=== PATIENT | female | born 1955 | race Caucasian/White ===

== ENCOUNTER 2019-03-18 17:29 | Emergency (ER) | payer MEDICARE, MEDICAID ==
[~2019-03-18] VITALS: Ht 157.5 cm; Wt 38.1 kg
[2019-03-18 19:33] LABS: Basophils # (auto) 0.1 uL; Eosinophils # (auto) 0.1 uL; Eosinophils % (auto) 1.3 % (0.0-7.0); Hematocrit 44.8 % (36.0-46.0); Hemoglobin 14.7 g/dL (12.2-16.2); Lymphocytes # (auto) 2.6 uL; Lymphocytes % (auto) 24.1 % (10.0-50.0); Mean Corpuscular Hemoglobin 29.8 pg (28.0-32.0); Mean Corpuscular Hgb Conc. 32.7 g/dL (32.0-36.0); Mean Corpuscular Volume 91.1 fL (80.0-100.0); Monocytes # (auto) 0.9 uL; Monocytes % (auto) 7.8 % (0.0-12.0); Neutrophils # (auto) 7.1 uL; Neutrophils % (auto) 65.8 % (37.0-80.0); Platelet Count (auto) 252 10^3/uL (140-450); Red Blood Cells 4.92 10^6/uL (4.0-5.20); Red Cell Distribution Width 14.1 % (11.8-14.3); White Blood Cell 10.9 10^3/uL (4.4-10.8)
[2019-03-18 19:57] LABS: Anion Gap 3 (5-15); BUN/Creatinine Ratio 20.3; Blood Urea Nitrogen 13 mg/dL (7-18); Calcium 7.9 mg/dL (8.5-10.1); Carbon Dioxide 32 mmol/L (21-32); Chloride 103 mmol/L (98-107); GFR African American 120 mL/min; GFR Non-African American 99 mL/min; Glucose 77 mg/dL (74-106); Potassium 3.9 mmol/L (3.5-5.1); Sodium 138 mmol/L (136-145)
[2019-03-18] MEDS ORDERED: SODIUM CHLORIDE 0.9% 1,000 ML IV ONE (20:00)
[2019-03-18] MEDS ORDERED: methylPREDNISolone SOD SUCC 125 MG/2 ML VL IV ONE (20:00)
[2019-03-18] MEDS ORDERED: IPRATROPIUM BROM 0.5 MG/2.5ML INH SOL NEB ONE (20:00)
[2019-03-18] MEDS ORDERED: ALBUTEROL SULF 2.5 MG/0.5ML(0.5%) NEB SOLN NEB ONE (20:00)
[2019-03-18 20:12] LABS: Alanine Aminotransferase 45 U/L (13-56); Alkaline Phosphatase 100 U/L (45-117); Aspartate Aminotransferase 30 U/L (15-37); Bilirubin, Total 0.3 mg/dL (0.2-1.0); Total Protein 6.2 g/dL (6.4-8.2)
[2019-03-18 20:46] LABS: INR 1.01 (0.9-1.15); Partial Thromboplastin Time 27.5 sec (23.64-32.05)
[2019-03-18] MEDS ORDERED: IOHEXOL 350 MG/ML 100ML IJ ONE (21:18)
[2019-03-18 22:12] LABS: Urine Bacteria NONE SEEN /hpf (None Seen); Urine Blood Negative /uL (Negative); Urine Specific Gravity 1.014 (1.001-1.035); Urine WBC 1 /hpf (0 - 5)
[2019-03-19] MEDS ORDERED: LORazepam 2MG/ML-1ML VIAL IV ONE (01:00)
[2019-03-19] MEDS ORDERED: IOHEXOL 350 MG/ML 100ML IJ ONE (03:04)
[2019-03-19 04:00] VITALS: BP 119/66
== END 2019-03-19 05:05 | disposition home or self-care (01) ==
LOC: ER 17:29
DX: J44.9 Chronic obstructive pulmonary disease, unspecified (principal); F17.210 Nicotine dependence, cigarettes, uncomplicated
CPT/HCPCS: 36415; 71045; 71275; 80053; 81001; 83880; 84484; 85025; 85379; 85610; 85730; 93005; 94640; 96374; 96375; 99284; J2060; J2930; J7030; J7611; J7644; Q9967

== ENCOUNTER 2019-06-29 16:03 | Inpatient (IN) | payer MEDICARE, MEDICAID ==
[~2019-06-29] VITALS: Ht 157.5 cm; Wt 41.4 kg
[2019-06-29] MEDS ORDERED: IPRATROPIUM BROM 0.5 MG/2.5ML INH SOL NEB ONE (17:00)
[2019-06-29] MEDS ORDERED: ALBUTEROL SULF 2.5 MG/0.5ML(0.5%) NEB SOLN NEB ONE (17:00)
[2019-06-29] MEDS ORDERED: methylPREDNISolone SOD SUCC 125 MG/2 ML VL IV ONE (17:00)
[2019-06-29 17:20] LABS: Basophils # (auto) 0.1 uL; Basophils % (auto) 0.4 % (0.0-2.0); Eosinophils # (auto) 0 uL; Hematocrit 45.5 % (36.0-46.0); Hemoglobin 14.8 g/dL (12.2-16.2); Lymphocytes # (auto) 1.2 uL; Lymphocytes % (auto) 8.7 % (10.0-50.0); Mean Corpuscular Hemoglobin 29.3 pg (28.0-32.0); Mean Corpuscular Hgb Conc. 32.6 g/dL (32.0-36.0); Monocytes # (auto) 1.4 uL; Monocytes % (auto) 10.4 % (0.0-12.0); Neutrophils # (auto) 11.1 uL; Neutrophils % (auto) 80.5 % (37.0-80.0); Platelet Count (auto) 306 10^3/uL (140-450); Red Blood Cells 5.06 10^6/uL (4.0-5.20); Red Cell Distribution Width 15.2 % (11.8-14.3); White Blood Cell 13.8 10^3/uL (4.4-10.8)
[2019-06-29 17:28] LABS: Albumin 3.2 g/dL (3.4-5.0); Anion Gap 5 (5-15); Blood Urea Nitrogen 17 mg/dL (7-18); Calcium 8.7 mg/dL (8.5-10.1); Carbon Dioxide 28 mmol/L (21-32); Chloride 98 mmol/L (98-107); Glucose 111 mg/dL (74-106); Potassium 4.1 mmol/L (3.5-5.1); Sodium 131 mmol/L (136-145)
[2019-06-29 17:30] LABS: Alanine Aminotransferase 29 U/L (13-56); BUN/Creatinine Ratio 21.5; GFR African American 94 mL/min; GFR Non-African American 78 mL/min
[2019-06-29] MEDS ORDERED: LORazepam 2MG/ML-1ML VIAL IV ONE (17:30)
[2019-06-29 17:33] LABS: Alkaline Phosphatase 125 U/L (45-117); Aspartate Aminotransferase 25 U/L (15-37); Bilirubin, Total 0.6 mg/dL (0.2-1.0); Total Protein 7.7 g/dL (6.4-8.2)
[2019-06-29] MEDS ORDERED: MIDAZOLAM DRIP 50 mg/50mL 50 ML IV ONE (18:04)
[2019-06-29] MEDS ORDERED: ETOMIDATE (2MG/ML) 20ML VIAL IV ONE ×2 (18:04→18:15)
[2019-06-29] MEDS ORDERED: SUCCINYLCHOLINE CHLORIDE 20 MG/ML 10ML VIAL IV ONE ×2 (18:05→18:15)
[2019-06-29 18:32] VITALS: BP_SYST 128; BP_SYST 93; BP_DIAS 39; BP_DIAS 71
[2019-06-29] MEDS ORDERED: fentaNYL Drip 2500mCg/250mlNS 250 ML IV ONE (18:48)
[2019-06-29] MEDS: fentaNYL Drip 2500mCg/250mlNS 250 ML IV SCH (19:12)
[2019-06-29] MEDS: MIDAZOLAM DRIP 50 mg/50mL 50 ML IV SCH (19:13)
[2019-06-29] MEDS ORDERED: SODIUM CHLORIDE 0.9% 1,000 ML IV ONE (19:30)
[2019-06-29 20:09] LABS: Urine Amorphous Crystal FEW /hpf (None Seen); Urine Bacteria FEW /hpf (None Seen); Urine Blood Negative /uL (Negative); Urine Hyaline Cast FEW /lpf (0 - 2); Urine Specific Gravity 1.028 (1.001-1.035); Urine WBC 2 /hpf (0 - 5)
[2019-06-29] MEDS: PROPOFOL 100 ML IV SCH (20:30)
[2019-06-29] MEDS: D5W/SOD CHLO 0.9% 1,000 ML IV SCH (20:30)
[2019-06-29 20:40] VITALS: BP 97/52
[2019-06-29 21:43] VITALS: BP 91/62
[2019-06-29] MEDS ORDERED: ALBUTEROL SULF 2.5 MG/0.5ML(0.5%) NEB SOLN NEB SCH (22:00)
[2019-06-29] MEDS ORDERED: IPRATROPIUM BROM 0.5 MG/2.5ML INH SOL NEB SCH (22:00)
[2019-06-29] MEDS ORDERED: ONDANSETRON HCL 4 MG/2 ML VIAL IV PRN (22:00)
[2019-06-29] MEDS ORDERED: cefTRIAXone 1GM/50ML D5W 50 ML IV ONE (22:00)
[2019-06-29] MEDS ORDERED: NITROGLYCERIN 0.4 MG SL TAB SL PRN (22:15)
[2019-06-29] MEDS ORDERED: MORPHINE SULF INJ 2 MG/ML SYRINGE 1ML IV PRN (22:15)
[2019-06-29] MEDS: methylPREDNISolone SOD SUCC 125 MG/2 ML VL IV SCH (22:30)
--- NOTE | 2019-06-29 23:25 | NUR ---
ARRIVAL NOTE PT BROUGHT TO ICU VIA GURNEY FROM ER. PT PLACED IN ROOM 111 AND PLACED ON ICU MONITORING. PT VITALS ON ADMISSION, 98.1 ORAL TEMP, HR 79, RR 18, BP 105/55. PT WEIGHED. NON BLANCHING REDNESS NOTED ON LATERAL PORTION OF LEFT HEEL AND LEFT EAR. SACRAL OPTIFOAM APPLIED. PT ARRIVED WITH 18 G LEFT FA AND 20 RIGHT AC. IV SITES BENIGN. ELLINGTON CATHETER DRAINING TO GRAVITY. OGT AT 55 CM ATTACHED TO LIS. PT VENTED AND SEDATED. BED LOCKED AND IN LOWEST POSITION, SAFETY PRECAUTIONS IN PLACE. WILL MONITOR PT CAREFULLY.
[2019-06-29 23:42] VITALS: BP 105/55
[2019-06-29] MEDS: IPRATROPIUM BROM 0.5 MG/2.5ML INH SOL NEB SCH (23:42)
[2019-06-29] MEDS: ALBUTEROL SULF 2.5 MG/0.5ML(0.5%) NEB SOLN NEB SCH (23:42)
[2019-06-29 23:45] VITALS: BP 104/60
[2019-06-29 23:58] VITALS: BP 105/55
[2019-06-30] VITALS (102 sets, daily range): BP systolic 74–131; BP diastolic 38–66
[2019-06-30] MEDS ORDERED: BUSP15TA60 (02:14)
[2019-06-30] MEDS ORDERED: IPRAAER6 (02:14)
[2019-06-30] MEDS ORDERED: ALBUAER3 (02:14)
[2019-06-30] MEDS ORDERED: ALBU108A5 (02:14)
[2019-06-30] MEDS ORDERED: PSEU1SYP6 (02:14)
[2019-06-30] MEDS ORDERED: FLUT1AER3 (02:14)
[2019-06-30 04:00] LABS: Basophils # (auto) 0 uL; Basophils % (auto) 0.2 % (0.0-2.0); Eosinophils # (auto) 0 uL; Hematocrit 39.2 % (36.0-46.0); Hemoglobin 13.1 g/dL (12.2-16.2); Lymphocytes # (auto) 0.5 uL; Mean Corpuscular Hemoglobin 29.8 pg (28.0-32.0); Mean Corpuscular Hgb Conc. 33.3 g/dL (32.0-36.0); Mean Corpuscular Volume 89.6 fL (80.0-100.0); Monocytes # (auto) 0.3 uL; Monocytes % (auto) 3.4 % (0.0-12.0); Neutrophils # (auto) 8.4 uL; Neutrophils % (auto) 91.4 % (37.0-80.0); Nucleated Red Blood Cells % 0.1 %; Platelet Count (auto) 248 10^3/uL (140-450); Red Blood Cells 4.38 10^6/uL (4.0-5.20); Red Cell Distribution Width 15.1 % (11.8-14.3); White Blood Cell 9.2 10^3/uL (4.4-10.8)
[2019-06-30 04:17] LABS: Calcium 8.4 mg/dL (8.5-10.1); Potassium 4.2 mmol/L (3.5-5.1)
[2019-06-30 04:19] LABS: BUN/Creatinine Ratio 33.9
[2019-06-30] MEDS: ALBUTEROL SULF 2.5 MG/0.5ML(0.5%) NEB SOLN NEB SCH ×3 (06:36→18:36)
[2019-06-30] MEDS: IPRATROPIUM BROM 0.5 MG/2.5ML INH SOL NEB SCH ×3 (06:36→18:36)
--- NOTE | 2019-06-30 08:00 | NUR ---
OPEN RECEIVED REPORT FROM NIGHT RN. ASSUMED CARE OF ICU PATIENT, FULL CODE STATUS. PATIENT SEDATED ON VENT. #7.5 ETT, 23 CM AT LIP. AC 18,500, 35% FIO2, PEEP +5. OGT CLAMPED AT THIS TIME, PLACEMENT VERIFIED. ELLINGTON TO GRAVITY. SEE TELEPHONE QUOTATION CLERK AND IV FLOW SHEET FOR FURTHER PATIENT INFORMATION. WILL CONTINUE TO TURN PATIENT Q2HRS AND PRN. OFF LOADING PRESSURE AREAS WITH PILLOWS. WILL CONTINUE TO MONITOR.
[2019-06-30] MEDS ORDERED: NOREPINEPHRINE 8 MG/250ML KIT 250 ML IV ONE (08:57)
[2019-06-30] MEDS ORDERED: SODIUM CHLORIDE 0.9% 1,000 ML IV ONE (09:00)
[2019-06-30] MEDS: NOREPINEPHRINE 8 MG/250ML KIT 250 ML IV SCH (09:30)
--- NOTE | 2019-06-30 09:30 | NUR ---
FAMILY PATIENT'S SON AT BEDSIDE. UPDATED HIM ON PT'S CURRENT STATUS, LABS AND POC FOR TODAY. SON REMAINS AT BEDSIDE. CONTINUE CARE.
[2019-06-30] MEDS: D5W/SOD CHLO 0.9% 1,000 ML IV SCH (10:30)
[2019-06-30] MEDS: PANTOPRAZOLE 40 MG/10 ML VIAL INJ IV SCH (11:04)
[2019-06-30] MEDS: methylPREDNISolone SOD SUCC 125 MG/2 ML VL IV SCH ×2 (11:04→22:22)
[2019-06-30] MEDS: cefTRIAXone 1GM/50ML D5W 50 ML IV SCH (11:04)
[2019-06-30] MEDS: ENOXAPARIN SOD 40 MG/0.4 ML SYRINGE SC SCH (11:05)
--- NOTE | 2019-06-30 11:48 | NUR ---
WOUND CARE NOTE: Wound care into see patient per wound care request regarding " pt admitted with non-blanching redness to several areas including heels and left ear lobe" that are noted present upon admission. Patient is 64 years old female with admitting diagnosis of Acute Hypercapnic, hypoxic Resp Failure. Patient with history of asthma and COPD. Patient is resting in ICU bed in Rm. 111. Patient is intubated, sedated and mechanically ventilated. Patient appears to be in no pain using Celis Servin Faces Pain Scale. Her Chay score is 13. No open wound noted other than three small mole to L ear pinna from proximal to distal. Patient's skin is intact, pink and blanchable. No pressure injury noted. Patient's heels are offloaded on pillows and no skin issue noted. Patient tolerated well. RECOMMENDATION: Nursing to continue with BID/PRN cleaning and application Barrier cream to sacral, as preventative buttocks per MD order, frequent turning and repositioning schedule as condition permits, redistribute pressure points with pillows,elevate heels on pillows, continue monitoring by wound care while patient is mechanically ventilated. Addendum: 06/30/19 at 1355 by Daina Reyes RN Amended: Links added. Addendum: 06/30/19 at 1356 by Daina Reyes RN RECOMMENDATION: Consider air mattress if patient transfer to floor. Patient weighs 38.6kg
[2019-06-30] MEDS: fentaNYL Drip 2500mCg/250mlNS 250 ML IV SCH (12:25)
--- NOTE | 2019-06-30 13:45 | NUR ---
DR. LAGUNAS AT BEDSIDE: ORDERS MD UPDATED ON PT'S STATUS, LABS AND POC FOR TODAY. ORDERS GIVEN AND TO BE CARRIED OUT. WILL CONTINUE TO MONITOR. MD TALKING WITH PATIENT'S SON AT BEDSIDE AT THIS TIME.
[2019-06-30] MEDS ORDERED: Glucerna 1.2 Cal 1Liter BOTTLE GT SCH (14:00)
[2019-06-30] MEDS ORDERED: DEXTROSE (50%) 50ML SYRG IV PRN (14:00)
--- NOTE | 2019-06-30 15:20 | NUR ---
DR. MERAZ AT BEDSIDE: ORDERS MD UPDATED ON PT'S STATUS, LABS AND FOR TODAY. PENDING CPAP TRIAL IN AM FOR TOMORROW. MD WANTING TO HOLD STARTING TUBE FEEDINGS DUE TO CPAP IN AM. WILL KEEP PATIENT NPO STATUS AT THIS TIME. CONTINUE CARE.
[2019-06-30] MEDS ORDERED: AZITHROMYCIN 500MG/ 250ML 250 ML IV ONE (15:30)
[2019-06-30] MEDS: PROPOFOL 100 ML IV SCH (17:16)
[2019-06-30] MEDS: ACETYLCYSTEINE 10 %(100MG/ML) SOL 4ML NEB SCH (18:36)
[2019-06-30] MEDS: ACCU-CHEK COMFORT CURVE STRIP VI SCH (18:47)
[2019-06-30] MEDS: MIDAZOLAM DRIP 50 mg/50mL 50 ML IV SCH (18:48)
[2019-06-30] MEDS: InsuLIN REG 1unit/0.01ml Soln (100units/ml) SC SCH (18:54)
--- NOTE | 2019-06-30 19:00 | NUR ---
opening note assumed care of patient at this time. Report received from day shift RN. POC reviewed. Head to toe assessment complete, see intervention spreadsheet for complete details. Received pt intubated/sedated. VSS. iv sites benign. Thornton catheter draining to gravity. Bony prominences off loaded. Suction and BVM at bedside. Bed locked and in lowest position, safety precautions in place. Will monitor pt carefully.
[2019-07-01] VITALS (103 sets, daily range): BP systolic 87–143; BP diastolic 43–77
[2019-07-01] MEDS: IPRATROPIUM BROM 0.5 MG/2.5ML INH SOL NEB SCH ×4 (00:16→18:25)
[2019-07-01] MEDS: ALBUTEROL SULF 2.5 MG/0.5ML(0.5%) NEB SOLN NEB SCH ×4 (00:16→18:25)
[2019-07-01] MEDS: ACETYLCYSTEINE 10 %(100MG/ML) SOL 4ML NEB SCH ×4 (00:17→18:25)
[2019-07-01] MEDS: fentaNYL Drip 2500mCg/250mlNS 250 ML IV SCH (00:36)
[2019-07-01] MEDS ORDERED: FUROSEMIDE INJECTION 10 ML ONE (00:41)
[2019-07-01] MEDS: D5W/SOD CHLO 0.9% 1,000 ML IV SCH (03:08)
[2019-07-01 04:16] LABS: Basophils # (auto) 0 uL; Basophils % (auto) 0.1 % (0.0-2.0); Eosinophils # (auto) 0 uL; Hematocrit 38.9 % (36.0-46.0); Hemoglobin 12.5 g/dL (12.2-16.2); Lymphocytes # (auto) 0.5 uL; Lymphocytes % (auto) 3.3 % (10.0-50.0); Mean Corpuscular Hemoglobin 28.9 pg (28.0-32.0); Mean Corpuscular Volume 90.2 fL (80.0-100.0); Monocytes # (auto) 0.8 uL; Neutrophils # (auto) 14.9 uL; Neutrophils % (auto) 91.6 % (37.0-80.0); Platelet Count (auto) 334 10^3/uL (140-450); Red Blood Cells 4.31 10^6/uL (4.0-5.20); Red Cell Distribution Width 15.4 % (11.8-14.3); White Blood Cell 16.3 10^3/uL (4.4-10.8)
[2019-07-01 04:49] LABS: Potassium 4.5 mmol/L (3.5-5.1)
--- NOTE | 2019-07-01 04:49 | NUR ---
Bed bath/linen change pt given bed bath with linen change. Pt did not tolerate well. Pt woke up, pulling at tubes, clamping on et tube. Pt does not follow commands. Pt relaxed and fell back asleep after stimulation reduced. No skin integrity changes noted. Suction tubing and canister changed at this time. Bed locked and in lowest position, safety precautions maintained. Will continue with care.
[2019-07-01 04:55] LABS: BUN/Creatinine Ratio 22.7; Calcium 8.3 mg/dL (8.5-10.1); Magnesium 2.1 mg/dL (1.6-2.6)
[2019-07-01] MEDS: InsuLIN REG 1unit/0.01ml Soln (100units/ml) SC SCH ×4 (06:00→17:57)
[2019-07-01] MEDS: ACCU-CHEK COMFORT CURVE STRIP VI SCH ×4 (06:13→17:57)
[2019-07-01] MEDS: cefTRIAXone 1GM/50ML D5W 50 ML IV SCH (08:55)
--- NOTE | 2019-07-01 09:07 | NUR ---
Resumed care at 0715, orders reviewed and ongoing assessments being done. Being treated for multiple problems and remains intubated. Is wakeful but can not following any simple direction and can not keep eyes open. Sedation vacation initiated, weaned off Versed at 0815 and decreased FentaNLY. Per prior shift awakens very confused and reaching for medical tubes. applied soft bilateral mittens to prevent removal of medical tube. Possible CPAP trial if appropriate. Remains on Levophed gtt for hemodynamic stability, titrating as appropriate. Received call from son Mark at 0745, will be in later today.
[2019-07-01] MEDS: NOREPINEPHRINE 8 MG/250ML KIT 250 ML IV SCH (09:30)
--- NOTE | 2019-07-01 10:00 | NUR ---
ERROR ON VENT CHARTING AT 1000, PT NOT ON CPAP.
--- NOTE | 2019-07-01 10:09 | NUR ---
CPAP INITIATED AT THIS TIME PS 7, PEEP5, 30% FIO2. PT AWAKE AND FOLLOWS COMMANDS. SPO2 93%. APPROPRIATE CPAP ALARMS SET ON VENTILATOR. Addendum: 07/01/19 at 1135 by Linh Champion RT ERROR. WRONG PT
[2019-07-01] MEDS: ENOXAPARIN SOD 40 MG/0.4 ML SYRINGE SC SCH (10:18)
[2019-07-01] MEDS: methylPREDNISolone SOD SUCC 125 MG/2 ML VL IV SCH ×2 (10:18→22:07)
[2019-07-01] MEDS: PANTOPRAZOLE 40 MG/10 ML VIAL INJ IV SCH (10:18)
[2019-07-01] MEDS: AZITHROMYCIN 500MG/ 250ML 250 ML IV SCH (10:18)
--- NOTE | 2019-07-01 10:55 | NUR ---
During repositioning sat straight up in bed with eyes wide open and biting down on EET. Started shaking upper body. Noted HR up to 140 and pulse oximetry <90%. No sustained eye contact and not following any direction. Reoriented to staff, place and situation. Emotional support given and finally calmed. HR now 79 with pulse oximetry 95%. Took a few minutes for her to settle down.
--- NOTE | 2019-07-01 11:15 | NUR ---
Contacted Dr. Hilario, form maker. Discussed condition and plan of care. Okay to or a Precedex gtt for CPAP trial.
[2019-07-01] MEDS: DexMEDEtomidine 400 MCG in D5W 5% 96 ML IV SCH (11:30)
--- NOTE | 2019-07-01 12:12 | NUR ---
PT DOES NOT TOLERATE CPT WELL. WHEN CPT STARTED ON BED, PT SITS UP IN BED, AGITATED, SHAKING, DISTRESSED. CPT TERMINATED.
--- NOTE | 2019-07-01 12:51 | NUR ---
Son Mark was in to visit and updated on plan of care, all questions answered. Took all personal belongings home. Once again while repositioning, sat up forcefully with eyes wide open and shaking body from side to side. Heart rate increases up to 140. Have to stay at bedside and give emotional support and reorient to place and situation. Precedex infusing started at 1230 per protocol.
[2019-07-01] MEDS: PROPOFOL 100 ML IV SCH (13:35)
--- NOTE | 2019-07-01 16:06 | NUR ---
Dr. Hilario in at 1315 to round. No CPAP trial today. At bedside with doctor and when stimulated she sits up, moves body side to side and starts gaging on EET. Unable to stay calm and follow simple direction for CPAP trial. Per Dr. Hilario, start Diprivan gtt for sedation. Diprivan infusing and is calm, sleeping. Dr. Soto rounded at 1500. Continue current plan of care. He contacted her son Mark via phone to update him.
--- NOTE | 2019-07-01 18:32 | NUR ---
No remarkable changes. Remains intubated and sedated with Diprivan and Precedex. Upon stimulation she stills sits up and opens eyes wide open but not as forceful prior to sedation. Levophed gtt continues to infuse, to right AC peripheral line #20 guage. No signs of infiltration.
[2019-07-01] MEDS: MIDAZOLAM DRIP 50 mg/50mL 50 ML IV SCH ×2 (19:01→22:39)
--- NOTE | 2019-07-01 20:11 | NUR ---
Residuals 60 mls aspirated, tf decreased to 20 mls/hr. Will continue to assess.
--- NOTE | 2019-07-01 21:05 | NUR ---
Pt does not tolerate turns, Pt wakes up and is combative. Pt does not follow commands, appears to be fearful. Pt reassured that everything is ok, pt is in hospital being taken care of. Pt does not respond appropriately, attempting to hit, kick and mouth words. Pt biting tubes and pulling at lines etc. Pt calmed down after several minutes. Once patient not being disturbed, pt asleep. VSS.
[2019-07-01] MEDS: PIPERACILLIN-TAZOB 3.375GM 100 ML IV SCH (22:07)
--- NOTE | 2019-07-01 22:31 | NUR ---
agitation/anxiety Pt sat upright in bed with no provocation. PT pulling at et tube and fighting with RN's. Pt does not respond to reassurance. Versed restarted at this time for pt comfort.
--- NOTE | 2019-07-01 22:35 | NUR ---
tf turned off at this time for pt safety d/t agitation. OGT flushed and clamped.
--- NOTE | 2019-07-01 23:31 | NUR ---
family update Son Mark called. All questions addressed, poc updated. Son verbalized understanding.
[2019-07-02] VITALS (76 sets, daily range): BP systolic 85–137; BP diastolic 45–88
[2019-07-02] MEDS: ACETYLCYSTEINE 10 %(100MG/ML) SOL 4ML NEB SCH ×4 (00:11→18:41)
[2019-07-02] MEDS: ALBUTEROL SULF 2.5 MG/0.5ML(0.5%) NEB SOLN NEB SCH ×3 (00:11→11:30)
[2019-07-02] MEDS: IPRATROPIUM BROM 0.5 MG/2.5ML INH SOL NEB SCH ×4 (00:11→18:40)
[2019-07-02] MEDS: ACCU-CHEK COMFORT CURVE STRIP VI SCH ×4 (00:21→18:16)
[2019-07-02] MEDS: InsuLIN REG 1unit/0.01ml Soln (100units/ml) SC SCH ×4 (00:21→18:00)
[2019-07-02 03:43] LABS: Basophils # (auto) 0 uL; Basophils % (auto) 0.1 % (0.0-2.0); Eosinophils # (auto) 0 uL; Hematocrit 41.5 % (36.0-46.0); Hemoglobin 13.7 g/dL (12.2-16.2); Lymphocytes # (auto) 0.7 uL; Lymphocytes % (auto) 5.6 % (10.0-50.0); Mean Corpuscular Hemoglobin 29.7 pg (28.0-32.0); Mean Corpuscular Hgb Conc. 33.1 g/dL (32.0-36.0); Mean Corpuscular Volume 89.6 fL (80.0-100.0); Monocytes # (auto) 0.7 uL; Monocytes % (auto) 5.3 % (0.0-12.0); Neutrophils # (auto) 11.7 uL; Platelet Count (auto) 282 10^3/uL (140-450); Red Blood Cells 4.63 10^6/uL (4.0-5.20); Red Cell Distribution Width 15.6 % (11.8-14.3); White Blood Cell 13.2 10^3/uL (4.4-10.8)
[2019-07-02 04:04] LABS: Calcium 8.8 mg/dL (8.5-10.1); Potassium 4.3 mmol/L (3.5-5.1)
[2019-07-02 04:08] LABS: BUN/Creatinine Ratio 32.7
[2019-07-02] MEDS: PROPOFOL 100 ML IV SCH (04:27)
--- NOTE | 2019-07-02 04:50 | NUR ---
BRADYCARDIA/WARMING MEASURES PT HAVING CONTINUOUS EPISODES OF LOW HEART RATE. SEDATION DECREASED SIGNIFICANTLY WITH NO CHANGE. UNABLE TO ASSESS ORAL OR AXILLARY 0400 TEMP. RECTAL TEMP PLACED. REGISTERING AT 94.6, HARDENED STOOL NOTED ON PLACEMENT, UNABLE TO ASSESS IF TEMP IS ACCURATE HOWEVER DUE TO BRADYCARDIA WARMING MEASURES INITIATED. WILL CONTINUE TO ASSESS PT.
[2019-07-02] MEDS: PIPERACILLIN-TAZOB 3.375GM 100 ML IV SCH ×3 (05:56→22:19)
[2019-07-02] MEDS: DexMEDEtomidine 400 MCG in D5W 5% 96 ML IV SCH (06:37)
[2019-07-02] MEDS: NOREPINEPHRINE 8 MG/250ML KIT 250 ML IV SCH (07:50)
[2019-07-02] MEDS: methylPREDNISolone SOD SUCC 125 MG/2 ML VL IV SCH ×2 (10:40→22:19)
[2019-07-02] MEDS: PANTOPRAZOLE 40 MG/10 ML VIAL INJ IV SCH (10:40)
[2019-07-02] MEDS: AZITHROMYCIN 500MG/ 250ML 250 ML IV SCH (10:40)
[2019-07-02] MEDS: ENOXAPARIN SOD 40 MG/0.4 ML SYRINGE SC SCH (10:40)
[2019-07-02] MEDS ORDERED: LORazepam 2MG/ML-1ML VIAL ONE (11:27)
--- NOTE | 2019-07-02 11:28 | NUR ---
Bilingual Office Assistant at bedside Dr. Hilario at bedside. Patient remains on precedex gtt. When lightly simulated patient wakes up, does not track, does not follow command. Became restless despite alternative measures. 1x dose of ativan given as ordered due to anxiety pending cpap. R.t at bedside aware. Will continue to attempt to wake up with less anxiety as hr increased as high as 130's.
[2019-07-02] MEDS ORDERED: LORazepam 2MG/ML-1ML VIAL IV PRN (11:45)
--- NOTE | 2019-07-02 13:30 | NUR ---
MD ROUNDS DR. HOGUE UPDATED ON PATIENTS STATUS. SEE MD ORDERS.
--- NOTE | 2019-07-02 13:40 | NUR ---
PLACED PT RONALD CPAP WEANING TRIAL, PER DR LAGUNAS. PT IS AWAKE, ALERT AND ORIENTED. PT ABLE TO UNDERSTAND AND FOLLOW INDICATIONS.
--- NOTE | 2019-07-02 14:00 | NUR ---
ANXIETY PATIENTS HAS MOMENTS OF ANXIETY, BECOMES TACHYCARDIAC 130'S RR 22-30. PATIENT OPENS EYES TO VOICE, PRECEDEX REMAINS IN PLACE. FAMILY AT BEDSIDE NOTED TO COMFORT PATIENT. MEAL RELIEF NURSE TO CONTINUE TO MONITOR.
[2019-07-02] MEDS ORDERED: FUROSEMIDE 20 MG/2 ML VIAL IV ONE (14:30)
--- NOTE | 2019-07-02 14:30 | NUR ---
Patient status Per covering nurse, [place] [employer] Operator aware of patients anxiety during cpap trial and tackycardia, cpap held for approx 15min. Patient currently on cpap pending abg.
--- NOTE | 2019-07-02 14:45 | NUR ---
Family Patient continues to be anxious. Dr. Hilario at bedside updated Son at bedside of possible reintubation if patient does not tolerate. Son verbalized understanding and agrees to extubation.
--- NOTE | 2019-07-02 15:00 | NUR ---
Patient extubated by RT Extubation order received by Dr. LAGUNAS, RT at bedside. Patient extubated with no problems, patient tolerated well. Patient placed on % cool mist mask. Sats prior to extubation %, following extubation %. Continue to monitor.
--- NOTE | 2019-07-02 17:16 | NUR ---
STATUS PATIENT IN HIGH FOWLERS. ON COOL MIST MASK, PATIENT CALM, ST 111, POX 94%, RR 23-27, 102/53. WILL CONTINUE TO MONITOR.
--- NOTE | 2019-07-02 18:00 | NUR ---
SKIN OPTI FOAMS PLACED TO BILATERAL ELBOWS PATIENT CONTINUOUSLY PUSHES SELF OFF BED TO REPOSITION SELF. HEELS ALSO OFF LOADED AND PINK/ BLANCHABLE BUT PATIENT CONTINUES TO MOVE PILLOW THAT OFF LOADS HEELS.
[2019-07-02] MEDS: fentaNYL Drip 2500mCg/250mlNS 250 ML IV SCH (18:16)
[2019-07-02] MEDS: LEVALBUTEROL HCL 1.25 MG/3 ML NEB NEB SCH (18:40)
--- NOTE | 2019-07-02 18:53 | NUR ---
Family updated on pt status Family of [place]GU[place] updated on patient's status and condition. All questions and concerns addressed. Son, Mark verbalized understanding.
--- NOTE | 2019-07-02 19:20 | NUR ---
Respiratory note: PT HAVING DIFFICULTY CLEARING SECRETIONS DESPITE GOOD COUGH EFFORT. PT DEEP SUCTIONED FOR LARGE, THICK, TENACIOUS, WHITE/PALE YELLOW SECRETIONS. RN AT BEDSIDE. WILL CONTINUE TO MONITOR.
[2019-07-02] MEDS: LORazepam 2MG/ML-1ML VIAL IV PRN (20:01)
[2019-07-03] VITALS (29 sets, daily range): BP systolic 106–155; BP diastolic 50–95
[2019-07-03] MEDS: IPRATROPIUM BROM 0.5 MG/2.5ML INH SOL NEB SCH ×4 (00:04→18:41)
[2019-07-03] MEDS: LEVALBUTEROL HCL 1.25 MG/3 ML NEB NEB SCH ×4 (00:04→18:40)
[2019-07-03] MEDS: ACETYLCYSTEINE 10 %(100MG/ML) SOL 4ML NEB SCH ×4 (00:04→18:41)
[2019-07-03] MEDS: ACCU-CHEK COMFORT CURVE STRIP VI SCH ×3 (00:21→12:00)
[2019-07-03] MEDS: LORazepam 2MG/ML-1ML VIAL IV PRN ×4 (02:04→22:10)
--- NOTE | 2019-07-03 02:50 | NUR ---
Respiratory note: PT SITTING UP IN BED, HAVING DIFFICULTY CLEARING SECRETIONS WITH GOOD COUGH EFFORT. SPO2 NOTED AT 90%-89%, PT PLACED ON 8L SIMPLE MASK. PT SUCTIONED FOR MODERATE THICK TENACIOUS WHITE/YELLOW SECRETIONS. RN AT BEDSIDE. PT PLACED BACK ON 4L NC, SPO2 NOTED AT 97%, PT APPEARS COMFORTABLE AT THIS TIME. WILL CONTINUE TO MONITOR AND TITRATE FIO2 TOLERATED.
[2019-07-03] MEDS ORDERED: guaiFENesin-CODEINE Liq 5 ML UD ONE (03:22)
--- NOTE | 2019-07-03 04:00 | NUR ---
COUGHING PATIENT HAD INTERMITTENT SEVERE HYPERACTIVE COUGHING DURING NIGHT. PATIENT WAS GIVEN ATIVAN 1 MG IV PRN FOR ANXIETY. COUGH SYRUP WAS GIVEN PRN. WILL MONITOR CLOSELY.
--- NOTE | 2019-07-03 05:00 | NUR ---
ASSESSMENT PATIENT IS SLEEPING, NO MORE COUGHING, VITAL SIGNS ARE STABLE.
[2019-07-03] MEDS: PIPERACILLIN-TAZOB 3.375GM 100 ML IV SCH (06:13)
[2019-07-03] MEDS: InsuLIN REG 1unit/0.01ml Soln (100units/ml) SC SCH ×3 (07:08→12:00)
[2019-07-03] MEDS: DexMEDEtomidine 400 MCG in D5W 5% 96 ML IV SCH (08:01)
[2019-07-03] MEDS: NOREPINEPHRINE 8 MG/250ML KIT 250 ML IV SCH (08:01)
--- NOTE | 2019-07-03 08:20 | NUR ---
ANXIETY PATIENT HAS INCREASE RR, RESTLESS, PRN ATIVAN GIVEN FOR COMFORT. WILL CONTINUE TO MONITOR.
--- NOTE | 2019-07-03 08:30 | NUR ---
Family updated on pt status Family of [place]GU[place] updated on patient's status and condition. All questions and concerns addressed. Son, Mark verbalized understanding.
[2019-07-03] MEDS: methylPREDNISolone SOD SUCC 125 MG/2 ML VL IV SCH ×2 (09:00→21:26)
[2019-07-03] MEDS: AZITHROMYCIN 500MG/ 250ML 250 ML IV SCH (09:00)
[2019-07-03] MEDS: ENOXAPARIN SOD 40 MG/0.4 ML SYRINGE SC SCH (09:00)
[2019-07-03] MEDS: PANTOPRAZOLE 40 MG/10 ML VIAL INJ IV SCH (09:00)
--- NOTE | 2019-07-03 09:35 | NUR ---
Resting Patient tolerating Ativan well. Patient currently sleeping, Hr 101, pox 97% on 2l/min NC, RR 26-28. Bp stable. Will continue to monitor.
[2019-07-03] MEDS: guaiFENesin-CODEINE Liq 5 ML UD PO PRN ×3 (09:58→23:33)
--- NOTE | 2019-07-03 10:22 | NUR ---
COUGHING PATIENT HAVING DIFFICULTY CLEARING SECRETIONS. FREQUENT, HACKING, NONPRODUCTIVE COUGH. PRN FOR COUGH ADMINISTERED. SEE EMAR. PATIENT REMAINS IN HIGH FOWLERS WITH ASPIRATION PRECAUTIONS. BED ALARM ON WITH CALL LIGHT AT REACH.
[2019-07-03] MEDS ORDERED: FUROSEMIDE 20 MG/2 ML VIAL ONE (13:56)
[2019-07-03] MEDS ORDERED: CARVEDILOL 3.125 MG TAB PO ONE (14:00)
[2019-07-03] MEDS ORDERED: FUROSEMIDE 20 MG/2 ML VIAL IV ONE (14:00)
[2019-07-03] MEDS ORDERED: BUDESONIDE (INHALATION) 0.5 MG/2 ML NEB NEB ONE (14:00)
[2019-07-03] MEDS ORDERED: POTASSIUM EFFERVESENT TAB 25 MEQ PO ONE (14:00)
--- NOTE | 2019-07-03 16:34 | NUR ---
Assessment Pt is a 66 yr old female. Pt was unresponsive during assessment due to recent extubation so TONE called pt's Son Mark, who was her contact on file, at [phone]. Mark stated that patient's baseline is normally Alert and oriented. Pt rents a room from family friends. Pt uses no DME in the home, but uses an inhaler to assist with breathing needs. Pt was ambulatory and independent with ADL's prior to admit. Pt's Primary is Dr. Sosa, has no AD, and receives [employer] income. Pt was not on HH, Hospice or dialysis prior to admit. Pt's son asked questions regarding in home care, if needed for the patient upon d/c. TONE educated pt on [facility] and HH and gave phone # for [facility] intake referral. Pt's son will transport home upon d/c. Pt's needs will be further assessed prior to d/c Addendum: 07/03/19 at 1647 by GILDA OROZCO Amended: Links added.
--- NOTE | 2019-07-03 18:35 | NUR ---
COUGH PATIENT HAVING NON PRODUCTIVE MOIST COUGH. PT HR NOTED HIGH 120'S AND POX DECREASED TO 87%. PRN COUGH MEDICINE GIVE WITH ASPIRATION PRECAUTIONS IN PLACE. R.T AT BEDSIDE FOR TX. DINNER TRAY HELD AT THIS TIME.
[2019-07-03] MEDS: BUDESONIDE (INHALATION) 0.5 MG/2 ML NEB NEB SCH (18:41)
--- NOTE | 2019-07-03 18:55 | NUR ---
Family updated on pt status Family of [place]GU[place] updated on patient's status and condition. All questions and concerns addressed.Son, Mark verbalized understanding.
--- NOTE | 2019-07-03 19:22 | NUR ---
Report Patient currently resting at side of bed. Hr 109, pox 95% on 4L/min nc, RR 28-30. Report given to noc nurse. Updated on plan of care. Bed alarm on, call light at reach. bed in lowest position.
--- NOTE | 2019-07-03 19:30 | NUR ---
PT A/OX1 TO SELF, FOLLOWS DIRECTIONS, AFEBRILE. DIMINISHED LUNG SOUNDS B/L, PT SOB ON EXERTION AND COUGH, PT ON 4LNC, O2SAT 95%. ELLINGTON CATHETER DRAINING VIA GRAVITY W/ YELLOW URINE W/ CLOUDY SEDIMENT IN TUBING. SAFETY PRECAUTIONS IN PLACE. WILL CONTINUE TO MONITOR.
[2019-07-03] MEDS: CARVEDILOL 3.125 MG TAB PO SCH (21:26)
[2019-07-04] VITALS (41 sets, daily range): BP systolic 115–153; BP diastolic 56–91
[2019-07-04] MEDS: LEVALBUTEROL HCL 1.25 MG/3 ML NEB NEB SCH ×4 (00:43→18:12)
[2019-07-04] MEDS: IPRATROPIUM BROM 0.5 MG/2.5ML INH SOL NEB SCH ×4 (00:43→18:12)
[2019-07-04] MEDS: ACETYLCYSTEINE 10 %(100MG/ML) SOL 4ML NEB SCH ×4 (00:43→18:13)
--- NOTE | 2019-07-04 01:34 | NUR ---
PT INCREASE WORK OF BREATHING, PT EDUCATED ON BIPAP, PT STATING UNDERSTANDING. PT PLACED ON BIPAP, CURRENTLY TOLERATING WELL, [id number]% RR20 HR 82. WILL CONTINUE TO MONITOR. SAFETY PRECAUTIONS IN PLACE. WILL CONTINUE TO MONITOR.
--- NOTE | 2019-07-04 03:30 | NUR ---
PT TOLERATING BIPAP, RR 18-22. SAFETY PRECAUTIONS IN PLACE. WILL CONTINUE TO MONITOR.
[2019-07-04 03:51] LABS: Basophils # (auto) 0 10 ^3/uL (0-0.2); Basophils % (auto) 0.3 % (0.0-2.0); Eosinophils # (auto) 0 10 ^3/uL (0-0.8); Hematocrit 42.3 % (36.0-46.0); Hemoglobin 13.9 g/dL (12.2-16.2); Lymphocytes # (auto) 0.7 10 ^3/uL (0.4-5.4); Lymphocytes % (auto) 7.1 % (10.0-50.0); Mean Corpuscular Hemoglobin 29.6 pg (28.0-32.0); Mean Corpuscular Hgb Conc. 32.9 g/dL (32.0-36.0); Mean Corpuscular Volume 89.9 fL (80.0-100.0); Monocytes # (auto) 0.3 10 ^3/uL (0-1.3); Monocytes % (auto) 2.7 % (0.0-12.0); Neutrophils # (auto) 8.9 10 ^3/uL (1.6-8.6); Neutrophils % (auto) 89.9 % (37.0-80.0); Nucleated Red Blood Cells % 0.1 %; Platelet Count (auto) 321 10^3/uL (140-450); Red Cell Distribution Width 15.2 % (11.8-14.3); White Blood Cell 9.9 10^3/uL (4.4-10.8)
[2019-07-04] MEDS: LORazepam 2MG/ML-1ML VIAL IV PRN ×3 (03:53→22:03)
[2019-07-04 04:09] LABS: Calcium 8.5 mg/dL (8.5-10.1)
[2019-07-04 04:13] LABS: BUN/Creatinine Ratio 45.1
--- NOTE | 2019-07-04 06:00 | NUR ---
BED BATH GIVEN, PT UNABLE TO TOLERATE LINEN CHANGE AT THIS TIME. LINENS STRAIGHTENED OUT, GOWN CHANGED, MOUTH CARE GIVEN, PT TOLERATED WELL. SAFETY PRECAUTIONS IN PLACE. WILL CONTINUE TO MONITOR.
[2019-07-04] MEDS: guaiFENesin-CODEINE Liq 5 ML UD PO PRN ×2 (06:54→22:02)
--- NOTE | 2019-07-04 07:30 | NUR ---
Opening Shift Note Assumed care of patient FROM NOC RN. PATIENT IS awake and alert ORIENTATED X 3 WITH PERIODS OF CONFUSION. REMAINS ON BI-PAP 04/08 WITH 28% FIO2. NO PAIN AT THIS TIME. Instructed on POC and to call for assist PRN, will continue to monitor for changes.
[2019-07-04] MEDS: BUDESONIDE (INHALATION) 0.5 MG/2 ML NEB NEB SCH ×2 (07:32→18:13)
[2019-07-04] MEDS: CARVEDILOL 3.125 MG TAB PO SCH ×2 (08:09→17:38)
--- NOTE | 2019-07-04 09:00 | NUR ---
SON AT BEDSIDE. UPDATED ON POC.
[2019-07-04] MEDS ORDERED: levoFLOXacin 500MG 100 ML IV ONE (10:00)
[2019-07-04] MEDS: methylPREDNISolone SOD SUCC 125 MG/2 ML VL IV SCH ×3 (10:43→17:38)
[2019-07-04] MEDS: PANTOPRAZOLE 40 MG/10 ML VIAL INJ IV SCH (10:43)
[2019-07-04] MEDS: ENOXAPARIN SOD 40 MG/0.4 ML SYRINGE SC SCH (10:43)
--- NOTE | 2019-07-04 12:00 | NUR ---
DR. MERAZ HERE TO SEE PATIENT. SEE MD NOTES AND EMR FOR ANY NEW ORDERS.
--- NOTE | 2019-07-04 13:00 | NUR ---
ANXIETY PATIENT HAS INCREASE RR, RESTLESS, PRN ATIVAN GIVEN FOR COMFORT. WILL CONTINUE TO MONITOR.
--- NOTE | 2019-07-04 15:16 | NUR ---
PT NOT MARY ANN. BIPAP AND PLACED ON HIGH FLOW. SETTINGS: 45LPM AT 30% FIO2. PT MARY ANN. AT THIS TIME. ABG TO FOLLOW. GOLDY ALEGRIA.
--- NOTE | 2019-07-04 19:50 | NUR ---
IV removal IV on rt.ac and lt. hand DC'd with sterile technique, catheter fully intact. Pressure dressing applied to site. Patient tolerated procedure well.
--- NOTE | 2019-07-04 20:00 | NUR ---
IV insertion IV access obtained, via clean sterile technique by inserting 20 gauge catheter at LT.forearm. IV secured properly. No trauma to site. Patient tolerated procedure well.
[2019-07-05] VITALS (46 sets, daily range): BP systolic 103–153; BP diastolic 52–78
[2019-07-05] MEDS: IPRATROPIUM BROM 0.5 MG/2.5ML INH SOL NEB SCH ×5 (00:08→23:38)
[2019-07-05] MEDS: ACETYLCYSTEINE 10 %(100MG/ML) SOL 4ML NEB SCH ×5 (00:09→23:38)
[2019-07-05] MEDS: LEVALBUTEROL HCL 1.25 MG/3 ML NEB NEB SCH ×5 (00:09→23:38)
[2019-07-05] MEDS ORDERED: methylPREDNISolone SOD SUCC 40 MG/ML VL ONE (00:28)
[2019-07-05] MEDS: methylPREDNISolone SOD SUCC 125 MG/2 ML VL IV SCH ×4 (00:32→22:45)
[2019-07-05 04:00] LABS: Basophils # (auto) 0 10 ^3/uL (0-0.2); Basophils % (auto) 0.4 % (0.0-2.0); Eosinophils # (auto) 0 10 ^3/uL (0-0.8); Hematocrit 45.5 % (36.0-46.0); Hemoglobin 14.9 g/dL (12.2-16.2); Lymphocytes # (auto) 0.8 10 ^3/uL (0.4-5.4); Lymphocytes % (auto) 7.3 % (10.0-50.0); Mean Corpuscular Hemoglobin 29.4 pg (28.0-32.0); Mean Corpuscular Hgb Conc. 32.7 g/dL (32.0-36.0); Mean Corpuscular Volume 90.1 fL (80.0-100.0); Monocytes # (auto) 0.3 10 ^3/uL (0-1.3); Monocytes % (auto) 2.4 % (0.0-12.0); Neutrophils # (auto) 9.5 10 ^3/uL (1.6-8.6); Neutrophils % (auto) 89.9 % (37.0-80.0); Nucleated Red Blood Cells % 0.1 %; Platelet Count (auto) 320 10^3/uL (140-450); Red Blood Cells 5.06 10^6/uL (4.0-5.20); Red Cell Distribution Width 14.9 % (11.8-14.3); White Blood Cell 10.5 10^3/uL (4.4-10.8)
[2019-07-05 04:16] LABS: Potassium 4.2 mmol/L (3.5-5.1)
[2019-07-05 04:21] LABS: BUN/Creatinine Ratio 61.4; Calcium 8.8 mg/dL (8.5-10.1)
[2019-07-05] MEDS: BUDESONIDE (INHALATION) 0.5 MG/2 ML NEB NEB SCH ×2 (06:39→19:18)
--- NOTE | 2019-07-05 08:20 | NUR ---
FAMILY Patients family at bedside updated on patient condition.
--- NOTE | 2019-07-05 08:30 | NUR ---
NUTRITION Patient being feed by patients son's significant other.
[2019-07-05] MEDS: CARVEDILOL 3.125 MG TAB PO SCH ×2 (09:13→18:34)
[2019-07-05] MEDS: ENOXAPARIN SOD 40 MG/0.4 ML SYRINGE SC SCH (09:49)
[2019-07-05] MEDS: levoFLOXacin 250MG 50 ML IV SCH (09:49)
[2019-07-05] MEDS: PANTOPRAZOLE 40 MG/10 ML VIAL INJ IV SCH (09:49)
--- NOTE | 2019-07-05 11:40 | NUR ---
MD Dr. Larson at bedside updated on patient condition with new orders MD to input into system. MD spoke to patient regarding plan of care and questions/concerns answered by MD. Patient now ERIK status.
--- NOTE | 2019-07-05 11:45 | NUR ---
ERIK STATUS Charge nurse Corrine aware on ERIK status and will inform warehouse shipping receiving clerk of status change. Awaiting for bed availability/bed assignment.
--- NOTE | 2019-07-05 14:52 | NUR ---
NUTRITION ASSESSMENT NOTES Please refer to link notes of nutrition screen form filed under the intervention section of the plan of care for further details. Est. Energy Needs: 3653-6564 kcal (30-35 kcal/kg BW). Est. Protein Needs: 50-60 gms/day (1.0-1.2 gms/kg IBW). Will continue to monitor pertinent labs and reassess nutrient need prn Addendum: 07/05/19 at [address] Amended: Links added.
--- NOTE | 2019-07-05 16:15 | NUR ---
FAMILY Patients son at bedside updated on patient condition.
--- NOTE | 2019-07-05 19:23 | NUR ---
RT NOTE PT IS ON HFNC. WATER LEVEL IS GOOD. PT APPEARS TO TOLERATE WELL. BS ARE COARSE THROUGHOUT. HHN GIVEN INLINE WITH 1.25 MG XOPENEX AND 0.5 MG ATROVENT, 1 CC 10% MUCOMYST AND 0.5 MG PULMICORT WITH AEROGEN. CPT DONE WITH BED. CONT ORDERED Addendum: 07/05/19 at 1924 by Mihaela Rico RT Amended: Links added.
--- NOTE | 2019-07-05 19:30 | NUR ---
Opening Shift Note Pt laying in bed in high fowlers position on high alex. Pt alert and oriented times four with periods of intermittent confusion and easily reoriented. Full assessment done see interventions. Thornton catheter secured below bladder and draining light alexandr urine with sediment. Bed locked in lowest position. All alarms on and audible. Pt in full view of RN. VSS. Pt denies any pain or discomfort.
--- NOTE | 2019-07-05 22:07 | NUR ---
RT NOTE PT IS ON HFNC. WATER LEVEL IS GOOD. PT APPEARS TO TOLERATE WELL. CONT ORDERED POX 97% Addendum: 07/05/19 at 2207 by Mihaela Rico RT Amended: Links added.
--- NOTE | 2019-07-05 23:43 | NUR ---
RT NOTE PT WAS SEEN BY RT FOR HHN TX. PT TOLERATES WELL INLINE WITH AEROGEN. CPT DONE WITH MODE ON BED. BIPAP REMOVED FROM ROOM. CONT ORDERED Addendum: 07/05/19 at 2344 by Mihaela Rico RT Amended: Links added.
[2019-07-06] VITALS (21 sets, daily range): BP systolic 93–139; BP diastolic 43–64
--- NOTE | 2019-07-06 00:30 | NUR ---
AGITATION INCREASED RESTLESSNESS AND INCREASED RR. PRN ATIVAN GIVEN AT THIS TIME ORDERED FOR ANXIETY
[2019-07-06] MEDS: LORazepam 2MG/ML-1ML VIAL IV PRN ×2 (00:42→21:51)
--- NOTE | 2019-07-06 02:52 | NUR ---
RT NOTE PT IS ON HFNC. WATER LEVEL IS GOOD. PT IS SLEEPING AND APPEARS TO TOLERATE WELL. CONT ORDERED POX 98% Addendum: 07/06/19 at 0252 by Mihaela Rico RT Amended: Links added.
--- NOTE | 2019-07-06 05:00 | NUR ---
CARES PT GIVEN BED BATH AND PARTIAL LINEN CHANGE AT THIS TIME. SKIN INTEGRITY ASSESSED FOR ANY CHANGES; NONE NOTED
[2019-07-06] MEDS: methylPREDNISolone SOD SUCC 125 MG/2 ML VL IV SCH ×2 (05:21→14:13)
[2019-07-06] MEDS: IPRATROPIUM BROM 0.5 MG/2.5ML INH SOL NEB SCH ×3 (06:02→19:23)
[2019-07-06] MEDS: BUDESONIDE (INHALATION) 0.5 MG/2 ML NEB NEB SCH ×2 (06:02→19:23)
[2019-07-06] MEDS: LEVALBUTEROL HCL 1.25 MG/3 ML NEB NEB SCH ×3 (06:02→19:23)
[2019-07-06] MEDS: ACETYLCYSTEINE 10 %(100MG/ML) SOL 4ML NEB SCH ×2 (06:02→11:51)
--- NOTE | 2019-07-06 07:08 | NUR ---
End of Shift Note Report given to day shift RN to assume care.
--- NOTE | 2019-07-06 07:30 | NUR ---
OPENING NOTE RECEIVED REPORT FROM MANNEQUIN REFINISHER RN AND ASSUMED CARE OF PT. PT RESTING IN BED WITH HIGH FLOW O2 DEVICE IN PLACE. VITAL SIGNS STABLE WITH NO S/S OF DISTRESS NOTED. ELLINGTON CATHETER IN PLACE AND DRAINING TO GRAVITY. BED LOCKED IN LOWEST POSITION WITH FALL PRECAUTIONS IN PLACE. EDUCATED PT ON USE OF CALL LIGHT AND FALL PREVENTIONS. PT VERBALIZED UNDERSTANDING. WILL CONTINUE TO MONITOR AND ASSESS.
[2019-07-06] MEDS: CARVEDILOL 3.125 MG TAB PO SCH ×2 (08:44→18:00)
[2019-07-06] MEDS: ENOXAPARIN SOD 40 MG/0.4 ML SYRINGE SC SCH (10:33)
[2019-07-06] MEDS: PANTOPRAZOLE 40 MG/10 ML VIAL INJ IV SCH (10:33)
[2019-07-06] MEDS: levoFLOXacin 250MG 50 ML IV SCH (10:34)
--- NOTE | 2019-07-06 11:05 | NUR ---
RT AT BEDSIDE RT AT BEDSIDE TO TITRATE PT OFF HIGH FLOW O2. RT PLACED PT ON NASAL CANNULA AT 5L. PT TOLERATING WELL WITH SP02 AT 96% IN HIGH FOWLERS POSITION AND NO S/S OF DISTRESS NOTED.
--- NOTE | 2019-07-06 16:35 | NUR ---
AT BEDSIDE DR. MERAZ AT BEDSIDE TO ASSESS PT AND UPDATE PLAN OF CARE. MD ENCOURAGED PHYSICAL THERAPY. LABS IN THE MORNING. MADE MD AWARE OF PERIOD OF DECREASED BP WITH SYSTOLIC IN THE 90'S, MD ORDERED DECREASED DOSE OF COREG TO 3.125. ALL ORDERS NOTED IN CHART.
--- NOTE | 2019-07-06 17:15 | NUR ---
AT BEDSIDE DR. HANDY AT BEDSIDE TO ASSESS PT AND UPDATE PLAN OF CARE. NO NEW ORDERS RECEIVED.
--- NOTE | 2019-07-06 17:45 | NUR ---
TRANSFER TO TELE RECEIVED PATIENT TO 216B FROM ICU NURSE AFTER REPORT WAS CALLED. PATIENT PLACED ON 1L NC AND TELEMETRY BOX #31 WITH A READING OF NORMAL SINUS RHYTHM. PATIENT ORIENTED TO UNIT, RN, AND POLICIES REGARDING VISITING HOURS. PATIENT VERBALIZED UNDERSTANDING. BED IS IN LOWEST, LOCKED POSITION WITH SIDE RAILS UP X2 AND CALL LIGHT WITHIN REACH. WILL CONTINUE TO MONITOR Q1H AND PRN.
--- NOTE | 2019-07-06 17:50 | NUR ---
ICU patient trans to TELEMETRY floor SBAR given and confirmed receipt by Grazyna Gorman RN . Transferred to room 216B via bed on tele monitor and portable 02 at 1 liter NC with chart. No S/S of distress noted, Pt tolerated well. All personal belongings transferred with patient to receiving floor. Called pts son and made him aware of new location and visiting hours.
--- NOTE | 2019-07-06 19:30 | NUR ---
Opening Shift Note Assumed care of patient, awake and alert x4. Very pleasant. No S/S of distress/SOB or pain.Oxygen @ 2L via NC. IV to left FA patent and saline locked. Jello given per pt request. Thornton in place. Physical therapy ordered for tomorrow, pt has not ambulated since admission. Instructed on POC and to call for assist PRN, will continue to monitor for changes Q1hr and PRN.
[2019-07-06] MEDS: methylPREDNISolone SOD SUCC 40 MG/ML VL IV SCH (21:43)
[2019-07-07] MEDS: IPRATROPIUM BROM 0.5 MG/2.5ML INH SOL NEB SCH ×4 (00:43→18:26)
[2019-07-07] MEDS: LEVALBUTEROL HCL 1.25 MG/3 ML NEB NEB SCH ×4 (00:43→18:26)
[2019-07-07 05:55] LABS: Basophils # (auto) 0.1 10 ^3/uL (0-0.2); Basophils % (auto) 0.5 % (0.0-2.0); Eosinophils # (auto) 0 10 ^3/uL (0-0.8); Hematocrit 46.7 % (36.0-46.0); Hemoglobin 15.3 g/dL (12.2-16.2); Lymphocytes # (auto) 1.1 10 ^3/uL (0.4-5.4); Lymphocytes % (auto) 9.2 % (10.0-50.0); Mean Corpuscular Hemoglobin 29.2 pg (28.0-32.0); Mean Corpuscular Hgb Conc. 32.7 g/dL (32.0-36.0); Mean Corpuscular Volume 89.3 fL (80.0-100.0); Monocytes # (auto) 0.3 10 ^3/uL (0-1.3); Monocytes % (auto) 2.8 % (0.0-12.0); Neutrophils # (auto) 10.4 10 ^3/uL (1.6-8.6); Neutrophils % (auto) 87.5 % (37.0-80.0); Nucleated Red Blood Cells % 0.1 %; Platelet Count (auto) 339 10^3/uL (140-450); Red Blood Cells 5.23 10^6/uL (4.0-5.20); Red Cell Distribution Width 14.8 % (11.8-14.3); White Blood Cell 11.9 10^3/uL (4.4-10.8)
[2019-07-07 05:56] VITALS: BP 114/46
[2019-07-07 06:25] LABS: Calcium 8.4 mg/dL (8.5-10.1); Potassium 4.5 mmol/L (3.5-5.1)
[2019-07-07 06:28] LABS: BUN/Creatinine Ratio 30.9
[2019-07-07] MEDS: CARVEDILOL 3.125 MG TAB PO SCH ×2 (08:09→18:31)
--- NOTE | 2019-07-07 08:41 | NUR ---
Respiratory note: UNABLE TO ADMINISTER SCHEDULED MED NEB TX. THERAPIST UNAVAILABLE DUE TO . RT CHECKED ON PT, PT IS IN NO RESPIRATORY DISTRESS. PT IS CURRENTLY ON 2 L NASAL CANNULA @ 28%. ALL VITALS ARE STABLE. WILL CONTINUE TO MONITOR PT. WILL CONTINUE SCHEDULED MED NEB TX ORDERS.
[2019-07-07 09:00] VITALS: BP 126/72
[2019-07-07] MEDS: FAMOTIDINE 20 MG TAB PO SCH (09:16)
[2019-07-07] MEDS: levoFLOXacin 250MG 50 ML IV SCH (09:16)
[2019-07-07] MEDS: methylPREDNISolone SOD SUCC 40 MG/ML VL IV SCH (09:16)
[2019-07-07] MEDS: ENOXAPARIN SOD 40 MG/0.4 ML SYRINGE SC SCH (09:16)
--- NOTE | 2019-07-07 10:00 | NUR ---
Miller catheter dc'd Order to discontinue miller catheter. Miller dc'd with clean technique following deflation of balloon. Patient tolerated well with no complaints of pain. Continue care.
--- NOTE | 2019-07-07 10:00 | NUR ---
WOUND CARE NOTE: WOUND CARE TEAM HAS BEEN MONITORING PATIENT FOR SKIN INTEGRITY D/T INTUBATION/SEDATION WHILE IN THE ER. SINCE LAST VISIT, PATIENT HAS BEEN EXTUBATED. SHE IS NOW UP ON TELE FLOOR, ABLE TO SELF TURN/REPOSITION SELF, WORKING WITH PHYSICAL THERAPY TO AMBULATE. HER CURRENT JHONATAN SCORE IS 19. PATIENT NEEDS NO FURTHER WOUND CARE MONITORING.
[2019-07-07] MEDS: BUDESONIDE (INHALATION) 0.5 MG/2 ML NEB NEB SCH ×2 (10:35→18:27)
--- NOTE | 2019-07-07 12:09 | NUR ---
Patient walked to the bathroom with minimal assist, patient urinated clear yellow urine and had BM.
[2019-07-07 13:00] VITALS: BP 132/72
[2019-07-07 16:57] VITALS: BP 133/69
[2019-07-07 22:00] VITALS: BP 115/69
[2019-07-08] MEDS: LEVALBUTEROL HCL 1.25 MG/3 ML NEB NEB SCH ×4 (00:22→19:17)
[2019-07-08] MEDS: IPRATROPIUM BROM 0.5 MG/2.5ML INH SOL NEB SCH ×4 (00:22→19:16)
[2019-07-08] MEDS: LORazepam 2MG/ML-1ML VIAL IV PRN (00:37)
[2019-07-08 05:00] VITALS: BP 115/76
[2019-07-08] MEDS: BUDESONIDE (INHALATION) 0.5 MG/2 ML NEB NEB SCH ×2 (05:39→19:17)
[2019-07-08 08:26] VITALS: BP 112/64
[2019-07-08] MEDS: CARVEDILOL 3.125 MG TAB PO SCH (09:10)
[2019-07-08] MEDS: FAMOTIDINE 20 MG TAB PO SCH (09:10)
[2019-07-08] MEDS: levoFLOXacin 500 MG TAB PO SCH (09:11)
[2019-07-08] MEDS: predniSONE 20 MG TAB PO SCH (09:11)
[2019-07-08 13:00] VITALS: BP 110/65
[2019-07-08 16:54] VITALS: BP 123/61
[2019-07-08] MEDS: Ensure Enlive Strawberry 8oz Bottle PO SCH (18:48)
--- NOTE | 2019-07-08 19:00 | NUR ---
Opening Shift Note Assumed care of patient, awake and alert. No S/S of distress/SOB or pain. Instructed on POC and to call for assist PRN, will continue to monitor for changes Q1hr and PRN.
[2019-07-08 19:18] VITALS: BP 123/61
[2019-07-08 22:00] VITALS: BP 107/58
[2019-07-08] MEDS: METOPROLOL TARTRATE 25 MG TAB PO SCH (22:32)
[2019-07-09] MEDS: LEVALBUTEROL HCL 1.25 MG/3 ML NEB NEB SCH ×4 (00:38→18:14)
[2019-07-09] MEDS: IPRATROPIUM BROM 0.5 MG/2.5ML INH SOL NEB SCH ×4 (00:38→18:14)
[2019-07-09 02:00] VITALS: BP 112/63
[2019-07-09 05:00] VITALS: BP 120/58
[2019-07-09] MEDS: BUDESONIDE (INHALATION) 0.5 MG/2 ML NEB NEB SCH ×2 (07:13→18:14)
[2019-07-09] MEDS: Ensure Enlive Strawberry 8oz Bottle PO SCH ×3 (08:00→18:00)
--- NOTE | 2019-07-09 09:00 | NUR ---
Respiratory note: ABG NOT DONE AT THIS TIME. PT'S SPO2 MAINTAIN AT 94% ON RA. NOTIFY.
[2019-07-09] MEDS ORDERED: FLUT110A INH (09:34)
[2019-07-09] MEDS ORDERED: MET25T PO (09:34)
[2019-07-09] MEDS ORDERED: FAM20T PO (09:35)
[2019-07-09] MEDS ORDERED: PRED20TA2 PO ×2 (09:35)
[2019-07-09] MEDS: METOPROLOL TARTRATE 25 MG TAB PO SCH ×2 (10:00→22:31)
[2019-07-09 10:02] VITALS: BP 102/51
[2019-07-09] MEDS: levoFLOXacin 500 MG TAB PO SCH (10:54)
[2019-07-09] MEDS: predniSONE 20 MG TAB PO SCH (10:54)
[2019-07-09] MEDS: FAMOTIDINE 20 MG TAB PO SCH (10:54)
[2019-07-09 13:00] VITALS: BP 104/60
[2019-07-09] MEDS: LORazepam 2MG/ML-1ML VIAL IV PRN (16:15)
[2019-07-09 16:26] VITALS: BP 109/61
[2019-07-09 22:00] VITALS: BP 94/57
[2019-07-10] MEDS: LEVALBUTEROL HCL 1.25 MG/3 ML NEB NEB SCH ×3 (01:23→12:05)
[2019-07-10] MEDS: IPRATROPIUM BROM 0.5 MG/2.5ML INH SOL NEB SCH ×3 (01:23→12:05)
[2019-07-10 05:00] VITALS: BP 112/73
[2019-07-10] MEDS: BUDESONIDE (INHALATION) 0.5 MG/2 ML NEB NEB SCH (06:55)
[2019-07-10] MEDS: Ensure Enlive Strawberry 8oz Bottle PO SCH ×2 (08:47→12:00)
[2019-07-10 09:00] VITALS: BP 102/52
[2019-07-10] MEDS: METOPROLOL TARTRATE 25 MG TAB PO SCH (10:00)
[2019-07-10] MEDS: FAMOTIDINE 20 MG TAB PO SCH (10:16)
[2019-07-10] MEDS: predniSONE 20 MG TAB PO SCH (10:16)
--- NOTE | 2019-07-10 12:37 | NUR ---
Received Social Service Consult to arrange Home Health for safety, physicial Therapy, vitals and medication management. Pt stated that she declines Home Health at this time.
[2019-07-10 13:00] VITALS: BP 109/56
--- NOTE | 2019-07-10 16:05 | NUR ---
Nutrition Assessment Notes Please refer to link for full assessment notes. Est energy needs: 1884-9490 kcals (25-30 kcal/kgIBW) Est protein needs: 40-50 gms/day (0.8-1.0 gm/kgIBW) Will continue to monitor and reassess prn. Addendum: 07/10/19 at [address] Amended: Links added.
[2019-07-10 16:45] VITALS: BP 109/57
[2019-07-10 17:00] VITALS: BP 109/57
--- NOTE | 2019-07-10 18:50 | NUR ---
Discharge instructions given as ordered. Encourage to CALL [facility] TO FIND OUT WHO IS HER PRIMARY DOCTOR SINCE PATIENT JUST SIGN UP WITH [facility]. follow up with PMD as instructed. All questions and concerns addressed. Patient verbalized understanding. Medication reconciliation form completed and copy given to patient. . IV removed with catheter intact, pressure dressing applied. Patient taken to vehicle via wheelchair with all personal belongings, accompanied by staff and family member. No distress noted at time of departure.
== END 2019-07-10 18:50 | disposition home or self-care (01) | DRG 871 ==
LOC: ER 16:03 → TELE 16:04 → ICU WEST 23:33 → TELE-CENTR 07-06 17:40 → CENTRAL 07-08 10:12
PROVIDERS: ADMIT Nurse Practitioner; ATTEND Internal Medicine
PROC: 5A1945Z Respiratory Ventilation, 24-96 Consecutive Hours (ICD-10-PCS; principal; 2019-06-29)
PROC: 0BH17EZ Insertion of Endotracheal Airway into Trachea, Via Natural or Artificial Opening (ICD-10-PCS; 2019-06-29)
PROC: 5A09357 Assistance with Respiratory Ventilation, Less than 24 Consecutive Hours, Continuous Positive Airway Pressure (ICD-10-PCS; 2019-07-04)
DX: A41.9 Sepsis, unspecified organism (principal); J18.9 Pneumonia, unspecified organism; R65.21 Severe sepsis with septic shock; I50.41 Acute combined systolic (congestive) and diastolic (congestive) heart failure; J96.21 Acute and chronic respiratory failure with hypoxia; G93.41 Metabolic encephalopathy; R64 Cachexia; J98.11 Atelectasis; E44.1 Mild protein-calorie malnutrition; Z68.1 Body mass index [BMI] 19.9 or less, adult; J20.9 Acute bronchitis, unspecified; R73.9 Hyperglycemia, unspecified; I11.0 Hypertensive heart disease with heart failure; I25.5 Ischemic cardiomyopathy; B96.3 Hemophilus influenzae [H. influenzae] as the cause of diseases classified elsewhere; I25.10 Atherosclerotic heart disease of native coronary artery without angina pectoris; I27.20 Pulmonary hypertension, unspecified; F17.210 Nicotine dependence, cigarettes, uncomplicated; F41.9 Anxiety disorder, unspecified; J43.9 Emphysema, unspecified; Z71.6 Tobacco abuse counseling
CPT/HCPCS: 31500; 36415; 36600; 71045; 80048; 80053; 81001; 82805; 82962; 83605; 83735; 83880; 84484; 85025; 85379; 87040; 87070; 87081; 87205; 87804; 93005; 93306; 94002; 94003; 94640; 94660; 94667; 94668; 96365; 96367; 96375; 97163; 99291; C9113; G0378; J0330; J0696; J1815; J1956; J2250; J2543; J2704; J7042; J7060

== ENCOUNTER 2022-03-28 15:14 | Inpatient (IN) | payer MEDICARE, MEDICAID ==
[~2022-03-28] VITALS: Ht 157.5 cm; Wt 41.3 kg
[~2022-03-28 15:14] MED LIST: ALBU108A5; ALBUAER3; BUSP15TA60; FLUT1AER3; IPRAAER6; PSEU1SYP6
[2022-03-28] MEDS ORDERED: cefTRIAXone 1GM/50ML D5W 50 ML IV ONE (16:00)
[2022-03-28] MEDS ORDERED: ALBUTEROL SULF 2.5 MG/0.5ML(0.5%) NEB SOLN NEB ONE ×2 (16:00)
[2022-03-28] MEDS ORDERED: methylPREDNISolone SOD SUCC 125 MG/2 ML VL IV ONE (16:00)
[2022-03-28] MEDS ORDERED: IPRATROPIUM BROM 0.5 MG/2.5ML INH SOL NEB ONE ×2 (16:00)
[2022-03-28] MEDS ORDERED: AZITHROMYCIN 250 MG TAB PO ONE (16:00)
[2022-03-28] MEDS ORDERED: MORPHINE SULFATE 4 MG/ML SYR/VIAL IV ONE (16:30)
[2022-03-28 17:01] LABS: Basophils # (auto) 0 10 ^3/uL (0-0.2); Basophils % (auto) 0.3 % (0.0-2.0); Eosinophils # (auto) 0 10 ^3/uL (0-0.8); Lymphocytes # (auto) 1.2 10 ^3/uL (0.4-5.4); Lymphocytes % (auto) 10.7 % (10.0-50.0); Mean Corpuscular Hemoglobin 29.4 pg (28.0-32.0); Mean Corpuscular Hgb Conc. 31.2 g/dL (32.0-36.0); Mean Corpuscular Volume 94.2 fL (80.0-100.0); Monocytes # (auto) 1.2 10 ^3/uL (0-1.3); Monocytes % (auto) 10.3 % (0.0-12.0); Neutrophils % (auto) 78.7 % (37.0-80.0); Nucleated Red Blood Cells % 0.1 %; Red Blood Cells 5.09 10^6/uL (4.0-5.20); Red Cell Distribution Width 14.3 % (11.8-14.3); White Blood Cell 11.4 10^3/uL (4.4-10.8)
[2022-03-28 17:18] LABS: INR 1.13 (0.9-1.15); Partial Thromboplastin Time 31.6 sec (24.6-33.4)
[2022-03-28 17:23] LABS: Albumin 3.2 g/dL (3.4-5.0); BUN/Creatinine Ratio 23.7; Calcium 8.8 mg/dL (8.5-10.1); Magnesium 2.1 mg/dL (1.6-2.6); Potassium 4.5 mmol/L (3.5-5.1)
[2022-03-28] MEDS: MAGNESIUM SULFATE 1GM/100ML 100 ML IV SCH ×2 (17:30→18:30)
[2022-03-28 17:34] LABS: Bilirubin, Total 0.6 mg/dL (0.2-1.0); Total Protein 6.2 g/dL (6.4-8.2)
[2022-03-28] MEDS: ONDANSETRON HCL 4 MG/2 ML VIAL IV PRN ×2 (18:22→19:06)
[2022-03-28] MEDS ORDERED: HYDROcodone-ACET 5/325MG TAB PO PRN (19:15)
[2022-03-28] MEDS ORDERED: clonazePAM 0.5 MG TAB PO PRN (19:15)
[2022-03-28] MEDS ORDERED: NITROGLYCERIN 0.4 MG SL TAB SL PRN (19:15)
[2022-03-28] MEDS ORDERED: ACETAMINOPHEN 325 MG TAB PO PRN (19:15)
[2022-03-28] MEDS ORDERED: ONDANSETRON HCL 4 MG/2 ML VIAL IV PRN (19:15)
[2022-03-28] MEDS ORDERED: DOCUSATE SOD 100 MG CAP PO PRN (19:15)
[2022-03-28] MEDS ORDERED: MORPHINE SULFATE INJ 2 MG/ml SYRG IV PRN (19:15)
[2022-03-28] MEDS: methylPREDNISolone SOD SUCC 40 MG/ML VL IV SCH (22:00)
[2022-03-28] MEDS ORDERED: PROPOFOL 100 ML IV ONE (22:18)
[2022-03-28] MEDS ORDERED: fentaNYL Drip 2500mCg/250mlNS 250 ML IV ONE (22:19)
[2022-03-28] MEDS: fentaNYL Drip 2500mCg/250mlNS 250 ML IV SCH (22:30)
[2022-03-28] MEDS: PROPOFOL 100 ML IV SCH (22:30)
[2022-03-28] MEDS ORDERED: NOREPINEPHRINE 8 MG/250ML KIT 250 ML IV ONE (23:25)
[2022-03-28] MEDS: NOREPINEPHRINE 8 MG/250ML KIT 250 ML IV SCH (23:45)
[2022-03-29] VITALS (19 sets, daily range): BP systolic 73–131; BP diastolic 38–84
[2022-03-29] MEDS ORDERED: EPINEPHrine HCL 250 ML IV ONE (00:46)
[2022-03-29] MEDS ORDERED: ROCURONIUM 10MG/ML 10ML VIAL IV ONE (00:59)
[2022-03-29 02:07] LABS: Urine Bacteria NONE SEEN /hpf (None Seen); Urine Blood Negative /uL (Negative); Urine Hyaline Cast MANY /lpf (0 - 2); Urine Mucus FEW (None Seen); Urine Specific Gravity 1.027 (1.001-1.035); Urine WBC 19 /hpf (0 - 5)
[2022-03-29 06:36] LABS: Basophils # (auto) 0.2 10 ^3/uL (0-0.2); Basophils % (auto) 0.9 % (0.0-2.0); Eosinophils # (auto) 0 10 ^3/uL (0-0.8); Hematocrit 42.7 % (36.0-46.0); Hemoglobin 14.6 g/dL (12.2-16.2); Lymphocytes # (auto) 0.8 10 ^3/uL (0.4-5.4); Lymphocytes % (auto) 4.1 % (10.0-50.0); Mean Corpuscular Hemoglobin 32.6 pg (28.0-32.0); Mean Corpuscular Hgb Conc. 34.3 g/dL (32.0-36.0); Mean Corpuscular Volume 94.9 fL (80.0-100.0); Monocytes # (auto) 1.6 10 ^3/uL (0-1.3); Monocytes % (auto) 8.5 % (0.0-12.0); Neutrophils # (auto) 16.5 10 ^3/uL (1.6-8.6); Neutrophils % (auto) 86.5 % (37.0-80.0); Nucleated Red Blood Cells % 0.1 %; Red Blood Cells 4.49 10^6/uL (4.0-5.20); White Blood Cell 19.1 10^3/uL (4.4-10.8)
[2022-03-29] MEDS: IPRATROPIUM BROM 0.5 MG/2.5ML INH SOL NEB SCH ×3 (06:52→19:26)
[2022-03-29] MEDS: ALBUTEROL SULF 2.5 MG/0.5ML(0.5%) NEB SOLN NEB SCH ×3 (06:52→19:26)
[2022-03-29 06:58] LABS: Alkaline Phosphatase 149 U/L (45-117); Bilirubin, Total 1.5 mg/dL (0.2-1.0)
[2022-03-29 09:24] LABS: Alanine Aminotransferase 69 U/L (13-56); Aspartate Aminotransferase 84 U/L (15-37); Blood Urea Nitrogen 22 mg/dL (7-18); Calcium 9.1 mg/dL (8.5-10.1)
[2022-03-29 09:27] LABS: Albumin 2.8 g/dL (3.4-5.0); Anion Gap 15 (5-15); BUN/Creatinine Ratio 18.5; Carbon Dioxide 19 mmol/L (21-32); Chloride 102 mmol/L (98-107); GFR African American 58 mL/min; GFR Non-African American 48 mL/min; Glucose 175 mg/dL (74-106); Sodium 136 mmol/L (136-145); Total Protein 6.7 g/dL (6.4-8.2)
[2022-03-29] MEDS: cefTRIAXone 1GM/50ML D5W 50 ML IV SCH (09:38)
[2022-03-29] MEDS: methylPREDNISolone SOD SUCC 40 MG/ML VL IV SCH ×2 (09:38→21:34)
[2022-03-29] MEDS: PANTOPRAZOLE 40 MG/10 ML VIAL INJ IV SCH (09:38)
[2022-03-29] MEDS ORDERED: AZITHROMYCIN 500MG/ 250ML 250 ML IV ONE (13:45)
[2022-03-29] MEDS: OSELTAMIVIR 75 MG CAP PO SCH (21:34)
[2022-03-29] MEDS: fentaNYL Drip 2500mCg/250mlNS 250 ML IV SCH (22:26)
[2022-03-29] MEDS: PROPOFOL 100 ML IV SCH (22:26)
[2022-03-29] MEDS: NOREPINEPHRINE 8 MG/250ML KIT 250 ML IV SCH (22:27)
[2022-03-30] VITALS (17 sets, daily range): BP systolic 96–126; BP diastolic 39–70
[2022-03-30 02:10] LABS: Basophils # (auto) 0.1 10 ^3/uL (0-0.2); Basophils % (auto) 0.8 % (0.0-2.0); Eosinophils # (auto) 0 10 ^3/uL (0-0.8); Hematocrit 44.8 % (36.0-46.0); Hemoglobin 14.5 g/dL (12.2-16.2); Lymphocytes # (auto) 0.8 10 ^3/uL (0.4-5.4); Lymphocytes % (auto) 4.3 % (10.0-50.0); Mean Corpuscular Hemoglobin 29.9 pg (28.0-32.0); Mean Corpuscular Hgb Conc. 32.4 g/dL (32.0-36.0); Mean Corpuscular Volume 92.4 fL (80.0-100.0); Monocytes # (auto) 1.2 10 ^3/uL (0-1.3); Monocytes % (auto) 6.2 % (0.0-12.0); Neutrophils # (auto) 16.8 10 ^3/uL (1.6-8.6); Neutrophils % (auto) 88.7 % (37.0-80.0); Nucleated Red Blood Cells % 0.3 %; Red Blood Cells 4.85 10^6/uL (4.0-5.20); Red Cell Distribution Width 14.3 % (11.8-14.3)
[2022-03-30 02:25] LABS: Alanine Aminotransferase 55 U/L (13-56); Albumin 2.9 g/dL (3.4-5.0); Anion Gap 11 (5-15); Aspartate Aminotransferase 41 U/L (15-37); BUN/Creatinine Ratio 23.9; Blood Urea Nitrogen 27 mg/dL (7-18); Calcium 8.9 mg/dL (8.5-10.1); Carbon Dioxide 23 mmol/L (21-32); Chloride 103 mmol/L (98-107); GFR African American 62 mL/min; GFR Non-African American 51 mL/min; Glucose 150 mg/dL (74-106); Potassium 4.7 mmol/L (3.5-5.1); Sodium 137 mmol/L (136-145)
[2022-03-30 02:27] LABS: Alkaline Phosphatase 138 U/L (45-117); Bilirubin, Total 0.4 mg/dL (0.2-1.0); Total Protein 6.6 g/dL (6.4-8.2)
[2022-03-30] MEDS: ALBUTEROL SULF 2.5 MG/0.5ML(0.5%) NEB SOLN NEB SCH ×3 (05:53→20:19)
[2022-03-30] MEDS: IPRATROPIUM BROM 0.5 MG/2.5ML INH SOL NEB SCH ×3 (05:53→20:19)
[2022-03-30] MEDS: methylPREDNISolone SOD SUCC 40 MG/ML VL IV SCH ×2 (09:29→23:46)
[2022-03-30] MEDS: PANTOPRAZOLE 40 MG/10 ML VIAL INJ IV SCH (09:29)
[2022-03-30] MEDS: cefTRIAXone 1GM/50ML D5W 50 ML IV SCH (09:30)
[2022-03-30] MEDS: AZITHROMYCIN 500MG/ 250ML 250 ML IV SCH (09:30)
[2022-03-30] MEDS: OSELTAMIVIR 75 MG CAP PO SCH ×2 (09:38→22:00)
[2022-03-30] MEDS: PROPOFOL 100 ML IV SCH (22:30)
[2022-03-30] MEDS: fentaNYL Drip 2500mCg/250mlNS 250 ML IV SCH (22:30)
[2022-03-30] MEDS: NOREPINEPHRINE 8 MG/250ML KIT 250 ML IV SCH (23:47)
[2022-03-31] VITALS (57 sets, daily range): BP systolic 96–142; BP diastolic 51–80
[2022-03-31] MEDS: ALBUTEROL SULF 2.5 MG/0.5ML(0.5%) NEB SOLN NEB SCH ×3 (06:10→18:14)
[2022-03-31] MEDS: IPRATROPIUM BROM 0.5 MG/2.5ML INH SOL NEB SCH ×3 (06:10→18:14)
[2022-03-31] MEDS: PROPOFOL 100 ML IV SCH ×2 (06:16→15:57)
[2022-03-31] MEDS ORDERED: VANCOMYCIN PER PHARMACY 0 MG IV SCH (08:45)
[2022-03-31] MEDS: OSELTAMIVIR 75 MG CAP PO SCH ×2 (10:00→21:53)
[2022-03-31] MEDS: methylPREDNISolone SOD SUCC 40 MG/ML VL IV SCH ×2 (10:00→21:53)
[2022-03-31] MEDS: PANTOPRAZOLE 40 MG/10 ML VIAL INJ IV SCH (10:16)
[2022-03-31] MEDS: cefTRIAXone 1GM/50ML D5W 50 ML IV SCH (10:16)
[2022-03-31] MEDS: AZITHROMYCIN 500MG/ 250ML 250 ML IV SCH (10:17)
[2022-03-31] MEDS: VANCOMYCIN 500 MG in D5W 5% 100 ML IV SCH (15:37)
[2022-03-31] MEDS: NOREPINEPHRINE 8 MG/250ML KIT 250 ML IV SCH (15:56)
[2022-03-31] MEDS: CEFEPIME 1GM/ 50ML 50 ML IV SCH (21:53)
[2022-03-31] MEDS: fentaNYL Drip 2500mCg/250mlNS 250 ML IV SCH (23:25)
[2022-04-01] VITALS (104 sets, daily range): BP systolic 82–140; BP diastolic 48–88
[2022-04-01] MEDS: NOREPINEPHRINE 8 MG/250ML KIT 250 ML IV SCH ×2 (00:14→14:16)
[2022-04-01] MEDS: PROPOFOL 100 ML IV SCH ×5 (02:39→22:03)
[2022-04-01 04:36] LABS: Basophils # (auto) 0 10 ^3/uL (0-0.2); Eosinophils # (auto) 0 10 ^3/uL (0-0.8); Hematocrit 43.8 % (36.0-46.0); Hemoglobin 14.2 g/dL (12.2-16.2); Lymphocytes # (auto) 0.6 10 ^3/uL (0.4-5.4); Lymphocytes % (auto) 4.6 % (10.0-50.0); Mean Corpuscular Hemoglobin 29.9 pg (28.0-32.0); Mean Corpuscular Hgb Conc. 32.3 g/dL (32.0-36.0); Mean Corpuscular Volume 92.5 fL (80.0-100.0); Monocytes # (auto) 0.8 10 ^3/uL (0-1.3); Monocytes % (auto) 5.9 % (0.0-12.0); Neutrophils # (auto) 11.6 10 ^3/uL (1.6-8.6); Neutrophils % (auto) 89.5 % (37.0-80.0); Nucleated Red Blood Cells % 0.1 %; Red Blood Cells 4.74 10^6/uL (4.0-5.20); Red Cell Distribution Width 14.5 % (11.8-14.3)
[2022-04-01 04:53] LABS: Albumin 2.6 g/dL (3.4-5.0); BUN/Creatinine Ratio 27.1; Calcium 8.6 mg/dL (8.5-10.1); Potassium 4.6 mmol/L (3.5-5.1)
[2022-04-01 04:58] LABS: Bilirubin, Total 0.3 mg/dL (0.2-1.0); Total Protein 5.7 g/dL (6.4-8.2)
[2022-04-01] MEDS: ALBUTEROL SULF 2.5 MG/0.5ML(0.5%) NEB SOLN NEB SCH ×3 (06:48→18:54)
[2022-04-01] MEDS: IPRATROPIUM BROM 0.5 MG/2.5ML INH SOL NEB SCH ×3 (06:49→18:54)
[2022-04-01] MEDS: OSELTAMIVIR 75 MG CAP PO SCH ×2 (10:00→22:00)
[2022-04-01] MEDS: ENOXAPARIN SOD 100 MG/1 ML SYRINGE SC SCH ×2 (10:19→22:02)
[2022-04-01] MEDS: PANTOPRAZOLE 40 MG/10 ML VIAL INJ IV SCH (10:19)
[2022-04-01] MEDS: AZITHROMYCIN 500MG/ 250ML 250 ML IV SCH (10:19)
[2022-04-01] MEDS: methylPREDNISolone SOD SUCC 40 MG/ML VL IV SCH ×2 (10:19→22:01)
[2022-04-01] MEDS: CEFEPIME 1GM/ 50ML 50 ML IV SCH ×2 (13:15→22:00)
[2022-04-01] MEDS: VANCOMYCIN 500 MG in D5W 5% 100 ML IV SCH (14:00)
[2022-04-01] MEDS: Glucerna 1.2 Cal 1Liter BOTTLE GT SCH (19:03)
[2022-04-01] MEDS: QUEtiapine FUMARATE 25 MG TAB PO SCH (22:01)
[2022-04-01] MEDS: fentaNYL Drip 2500mCg/250mlNS 250 ML IV SCH (22:30)
[2022-04-02] VITALS (100 sets, daily range): BP systolic 82–133; BP diastolic 43–84
[2022-04-02] MEDS: PROPOFOL 100 ML IV SCH ×2 (03:46→22:44)
[2022-04-02 04:43] LABS: Basophils # (auto) 0 10 ^3/uL (0-0.2); Basophils % (auto) 0.3 % (0.0-2.0); Eosinophils # (auto) 0.1 10 ^3/uL (0-0.8); Eosinophils % (auto) 1.2 % (0.0-7.0); Hematocrit 41.9 % (36.0-46.0); Hemoglobin 13.8 g/dL (12.2-16.2); Lymphocytes # (auto) 0.8 10 ^3/uL (0.4-5.4); Lymphocytes % (auto) 6.4 % (10.0-50.0); Mean Corpuscular Hemoglobin 30.5 pg (28.0-32.0); Mean Corpuscular Volume 92.3 fL (80.0-100.0); Monocytes # (auto) 0.9 10 ^3/uL (0-1.3); Monocytes % (auto) 6.9 % (0.0-12.0); Neutrophils # (auto) 11.1 10 ^3/uL (1.6-8.6); Neutrophils % (auto) 85.2 % (37.0-80.0); Nucleated Red Blood Cells % 0.3 %; Red Blood Cells 4.54 10^6/uL (4.0-5.20); Red Cell Distribution Width 14.6 % (11.8-14.3)
[2022-04-02 04:49] LABS: Albumin 2.6 g/dL (3.4-5.0); BUN/Creatinine Ratio 29.2; Calcium 8.8 mg/dL (8.5-10.1); Potassium 5.1 mmol/L (3.5-5.1)
[2022-04-02 04:52] LABS: Bilirubin, Total 0.2 mg/dL (0.2-1.0); Total Protein 5.4 g/dL (6.4-8.2)
[2022-04-02] MEDS: NOREPINEPHRINE 8 MG/250ML KIT 250 ML IV SCH ×2 (05:54→22:44)
[2022-04-02] MEDS: fentaNYL Drip 2500mCg/250mlNS 250 ML IV SCH (05:56)
[2022-04-02] MEDS: IPRATROPIUM BROM 0.5 MG/2.5ML INH SOL NEB SCH ×2 (07:27→18:24)
[2022-04-02] MEDS: ALBUTEROL SULF 2.5 MG/0.5ML(0.5%) NEB SOLN NEB SCH ×2 (07:27→18:24)
[2022-04-02] MEDS: PANTOPRAZOLE 40 MG/10 ML VIAL INJ IV SCH (09:52)
[2022-04-02] MEDS: ENOXAPARIN SOD 60 MG/0.6 ML SYRINGE SC SCH ×2 (09:52→22:22)
[2022-04-02] MEDS: methylPREDNISolone SOD SUCC 40 MG/ML VL IV SCH ×2 (09:52→22:23)
[2022-04-02] MEDS: AZITHROMYCIN 500MG/ 250ML 250 ML IV SCH (09:53)
[2022-04-02] MEDS: OSELTAMIVIR 75 MG CAP PO SCH ×2 (10:00→22:00)
[2022-04-02] MEDS: QUEtiapine FUMARATE 25 MG TAB PO SCH ×2 (11:10→22:22)
[2022-04-02] MEDS: VANCOMYCIN 500 MG in D5W 5% 100 ML IV SCH (12:05)
[2022-04-02] MEDS ORDERED: FUROSEMIDE 20 MG/2 ML VIAL IV ONE (13:00)
[2022-04-02] MEDS: CEFEPIME 1GM/ 50ML 50 ML IV SCH ×2 (13:15→22:22)
[2022-04-02] MEDS ORDERED: D5W 5% IV SCH (20:00)
[2022-04-02] MEDS ORDERED: VANCOMYCIN IV SCH (20:00)
[2022-04-02] MEDS: VANCOMYCIN 750mg/250ml 250 ML IV SCH (22:48)
[2022-04-03] VITALS (103 sets, daily range): BP systolic 87–137; BP diastolic 35–93
[2022-04-03 04:28] LABS: Basophils # (auto) 0 10 ^3/uL (0-0.2); Basophils % (auto) 0.2 % (0.0-2.0); Eosinophils # (auto) 0 10 ^3/uL (0-0.8); Hematocrit 42.3 % (36.0-46.0); Lymphocytes # (auto) 0.8 10 ^3/uL (0.4-5.4); Lymphocytes % (auto) 4.7 % (10.0-50.0); Mean Corpuscular Hemoglobin 30.2 pg (28.0-32.0); Mean Corpuscular Volume 91.4 fL (80.0-100.0); Monocytes # (auto) 0.8 10 ^3/uL (0-1.3); Monocytes % (auto) 4.8 % (0.0-12.0); Neutrophils # (auto) 15.1 10 ^3/uL (1.6-8.6); Neutrophils % (auto) 90.3 % (37.0-80.0); Nucleated Red Blood Cells % 0.1 %; Red Blood Cells 4.62 10^6/uL (4.0-5.20); Red Cell Distribution Width 14.4 % (11.8-14.3); White Blood Cell 16.7 10^3/uL (4.4-10.8)
[2022-04-03 04:38] LABS: Calcium 8.6 mg/dL (8.5-10.1); Potassium 4.6 mmol/L (3.5-5.1)
[2022-04-03 04:44] LABS: Albumin 2.7 g/dL (3.4-5.0); BUN/Creatinine Ratio 38.6; Bilirubin, Total 0.6 mg/dL (0.2-1.0); Magnesium 2.6 mg/dL (1.6-2.6); Total Protein 5.4 g/dL (6.4-8.2)
[2022-04-03] MEDS: IPRATROPIUM BROM 0.5 MG/2.5ML INH SOL NEB SCH ×3 (05:34→18:13)
[2022-04-03] MEDS: ALBUTEROL SULF 2.5 MG/0.5ML(0.5%) NEB SOLN NEB SCH ×3 (05:34→18:14)
[2022-04-03] MEDS: PROPOFOL 100 ML IV SCH (05:53)
[2022-04-03] MEDS: methylPREDNISolone SOD SUCC 40 MG/ML VL IV SCH ×2 (09:10→22:40)
[2022-04-03] MEDS: VANCOMYCIN 750mg/250ml 250 ML IV SCH ×2 (09:10→22:46)
[2022-04-03] MEDS: ENOXAPARIN SOD 60 MG/0.6 ML SYRINGE SC SCH ×2 (09:11→22:40)
[2022-04-03] MEDS: PANTOPRAZOLE 40 MG/10 ML VIAL INJ IV SCH (09:11)
[2022-04-03] MEDS: QUEtiapine FUMARATE 25 MG TAB PO SCH ×2 (09:11→22:44)
[2022-04-03] MEDS: OSELTAMIVIR 75 MG CAP PO SCH (09:11)
[2022-04-03] MEDS: CEFEPIME 1GM/ 50ML 50 ML IV SCH ×2 (10:00→22:39)
[2022-04-03] MEDS: AZITHROMYCIN 500MG/ 250ML 250 ML IV SCH (10:09)
[2022-04-03] MEDS: NOREPINEPHRINE 8 MG/250ML KIT 250 ML IV SCH (13:10)
[2022-04-03] MEDS: fentaNYL Drip 2500mCg/250mlNS 250 ML IV SCH (22:45)
[2022-04-04] VITALS (89 sets, daily range): BP systolic 60–149; BP diastolic 33–91
[2022-04-04 03:38] LABS: Basophils # (auto) 0 10 ^3/uL (0-0.2); Basophils % (auto) 0.1 % (0.0-2.0); Eosinophils # (auto) 0.1 10 ^3/uL (0-0.8); Eosinophils % (auto) 0.5 % (0.0-7.0); Hematocrit 41.3 % (36.0-46.0); Hemoglobin 13.3 g/dL (12.2-16.2); Lymphocytes # (auto) 0.8 10 ^3/uL (0.4-5.4); Lymphocytes % (auto) 4.7 % (10.0-50.0); Mean Corpuscular Hemoglobin 29.5 pg (28.0-32.0); Mean Corpuscular Hgb Conc. 32.2 g/dL (32.0-36.0); Mean Corpuscular Volume 91.7 fL (80.0-100.0); Monocytes # (auto) 0.8 10 ^3/uL (0-1.3); Monocytes % (auto) 4.3 % (0.0-12.0); Neutrophils # (auto) 15.9 10 ^3/uL (1.6-8.6); Neutrophils % (auto) 90.4 % (37.0-80.0); Nucleated Red Blood Cells % 0.1 %; Red Cell Distribution Width 14.5 % (11.8-14.3); White Blood Cell 17.6 10^3/uL (4.4-10.8)
[2022-04-04 03:48] LABS: Albumin 2.5 g/dL (3.4-5.0); BUN/Creatinine Ratio 29.6; Calcium 8.4 mg/dL (8.5-10.1); Potassium 4.7 mmol/L (3.5-5.1)
[2022-04-04 03:50] LABS: Bilirubin, Total 0.4 mg/dL (0.2-1.0); Total Protein 5.4 g/dL (6.4-8.2)
[2022-04-04] MEDS: PROPOFOL 100 ML IV SCH (03:55)
[2022-04-04] MEDS: NOREPINEPHRINE 8 MG/250ML KIT 250 ML IV SCH ×2 (03:56→21:45)
[2022-04-04] MEDS: IPRATROPIUM BROM 0.5 MG/2.5ML INH SOL NEB SCH ×3 (06:21→18:35)
[2022-04-04] MEDS: ALBUTEROL SULF 2.5 MG/0.5ML(0.5%) NEB SOLN NEB SCH ×3 (06:21→18:35)
[2022-04-04] MEDS: PANTOPRAZOLE 40 MG/10 ML VIAL INJ IV SCH (08:26)
[2022-04-04] MEDS: methylPREDNISolone SOD SUCC 40 MG/ML VL IV SCH ×2 (08:26→21:32)
[2022-04-04] MEDS: QUEtiapine FUMARATE 25 MG TAB PO SCH ×2 (08:26→21:33)
[2022-04-04] MEDS: ENOXAPARIN SOD 60 MG/0.6 ML SYRINGE SC SCH ×2 (08:27→21:32)
[2022-04-04] MEDS: CEFEPIME 1GM/ 50ML 50 ML IV SCH ×2 (08:28→21:46)
[2022-04-04] MEDS: AZITHROMYCIN 500MG/ 250ML 250 ML IV SCH (10:00)
[2022-04-04] MEDS: VANCOMYCIN 750mg/250ml 250 ML IV SCH ×2 (10:30→12:52)
[2022-04-05] VITALS (99 sets, daily range): BP systolic 77–145; BP diastolic 39–95
[2022-04-05] MEDS: PROPOFOL 100 ML IV SCH (01:52)
[2022-04-05] MEDS: fentaNYL Drip 2500mCg/250mlNS 250 ML IV SCH ×2 (02:31→22:30)
[2022-04-05] MEDS: VANCOMYCIN 750mg/250ml 250 ML IV SCH ×2 (02:31→16:53)
[2022-04-05] MEDS: ALBUTEROL SULF 2.5 MG/0.5ML(0.5%) NEB SOLN NEB SCH ×3 (06:37→18:13)
[2022-04-05] MEDS: IPRATROPIUM BROM 0.5 MG/2.5ML INH SOL NEB SCH ×3 (06:37→18:13)
[2022-04-05 09:53] LABS: Albumin 2.5 g/dL (3.4-5.0); BUN/Creatinine Ratio 24.1; Calcium 8.4 mg/dL (8.5-10.1); Phosphorus 3.4 mg/dL (2.5-4.90); Potassium 4.1 mmol/L (3.5-5.1)
[2022-04-05] MEDS: CEFEPIME 1GM/ 50ML 50 ML IV SCH ×2 (09:58→22:01)
[2022-04-05] MEDS: PANTOPRAZOLE 40 MG/10 ML VIAL INJ IV SCH (09:58)
[2022-04-05] MEDS: methylPREDNISolone SOD SUCC 40 MG/ML VL IV SCH ×2 (09:59→22:01)
[2022-04-05] MEDS: AZITHROMYCIN 500MG/ 250ML 250 ML IV SCH (10:00)
[2022-04-05] MEDS: ENOXAPARIN SOD 60 MG/0.6 ML SYRINGE SC SCH ×2 (10:00→22:01)
[2022-04-05] MEDS: QUEtiapine FUMARATE 25 MG TAB PO SCH ×2 (10:00→22:01)
[2022-04-05] MEDS: NOREPINEPHRINE 8 MG/250ML KIT 250 ML IV SCH (23:45)
[2022-04-06] VITALS (106 sets, daily range): BP systolic 77–144; BP diastolic 34–104
[2022-04-06] MEDS: PROPOFOL 100 ML IV SCH (02:09)
[2022-04-06] MEDS: fentaNYL Drip 2500mCg/250mlNS 250 ML IV SCH ×2 (02:10→20:25)
[2022-04-06 04:04] LABS: Basophils # (auto) 0.1 10 ^3/uL (0-0.2); Basophils % (auto) 0.4 % (0.0-2.0); Eosinophils # (auto) 0 10 ^3/uL (0-0.8); Hemoglobin 13.1 g/dL (12.2-16.2); Lymphocytes # (auto) 0.7 10 ^3/uL (0.4-5.4); Mean Corpuscular Hemoglobin 30.1 pg (28.0-32.0); Mean Corpuscular Hgb Conc. 32.7 g/dL (32.0-36.0); Mean Corpuscular Volume 91.8 fL (80.0-100.0); Monocytes # (auto) 0.6 10 ^3/uL (0-1.3); Monocytes % (auto) 3.3 % (0.0-12.0); Neutrophils # (auto) 15.5 10 ^3/uL (1.6-8.6); Neutrophils % (auto) 92.3 % (37.0-80.0); Red Blood Cells 4.36 10^6/uL (4.0-5.20); Red Cell Distribution Width 14.3 % (11.8-14.3); White Blood Cell 16.9 10^3/uL (4.4-10.8)
[2022-04-06 04:29] LABS: Albumin 2.5 g/dL (3.4-5.0); Calcium 8.5 mg/dL (8.5-10.1); Potassium 4.2 mmol/L (3.5-5.1)
[2022-04-06 04:33] LABS: BUN/Creatinine Ratio 28.6; Bilirubin, Total 0.7 mg/dL (0.2-1.0); Total Protein 5.2 g/dL (6.4-8.2)
[2022-04-06] MEDS: VANCOMYCIN 750mg/250ml 250 ML IV SCH ×2 (06:06→18:33)
[2022-04-06] MEDS: ALBUTEROL SULF 2.5 MG/0.5ML(0.5%) NEB SOLN NEB SCH ×3 (06:56→18:39)
[2022-04-06] MEDS: IPRATROPIUM BROM 0.5 MG/2.5ML INH SOL NEB SCH ×3 (06:57→18:39)
[2022-04-06] MEDS: methylPREDNISolone SOD SUCC 40 MG/ML VL IV SCH ×2 (09:03→21:34)
[2022-04-06] MEDS: PANTOPRAZOLE 40 MG/10 ML VIAL INJ IV SCH (09:03)
[2022-04-06] MEDS: QUEtiapine FUMARATE 25 MG TAB PO SCH ×2 (09:03→21:35)
[2022-04-06] MEDS: AZITHROMYCIN 500MG/ 250ML 250 ML IV SCH (09:03)
[2022-04-06] MEDS: ENOXAPARIN SOD 60 MG/0.6 ML SYRINGE SC SCH ×2 (09:03→21:35)
[2022-04-06] MEDS: CEFEPIME 1GM/ 50ML 50 ML IV SCH ×2 (09:04→21:35)
[2022-04-06] MEDS: Glucerna 1.2 Cal 1Liter BOTTLE GT SCH (21:45)
[2022-04-07] VITALS (99 sets, daily range): BP systolic 84–162; BP diastolic 31–101
[2022-04-07] MEDS: PROPOFOL 100 ML IV SCH ×3 (00:01→20:21)
[2022-04-07] MEDS: NOREPINEPHRINE 8 MG/250ML KIT 250 ML IV SCH ×2 (00:04→23:45)
[2022-04-07] MEDS: IPRATROPIUM BROM 0.5 MG/2.5ML INH SOL NEB SCH ×3 (01:01→18:20)
[2022-04-07] MEDS: VANCOMYCIN 750mg/250ml 250 ML IV SCH ×2 (05:30→18:16)
[2022-04-07] MEDS: ALBUTEROL SULF 2.5 MG/0.5ML(0.5%) NEB SOLN NEB SCH ×3 (07:03→18:20)
[2022-04-07] MEDS: CEFEPIME 1GM/ 50ML 50 ML IV SCH ×2 (09:44→21:38)
[2022-04-07] MEDS: ENOXAPARIN SOD 60 MG/0.6 ML SYRINGE SC SCH ×2 (09:44→21:39)
[2022-04-07] MEDS: PANTOPRAZOLE 40 MG/10 ML VIAL INJ IV SCH (09:44)
[2022-04-07] MEDS: methylPREDNISolone SOD SUCC 40 MG/ML VL IV SCH ×2 (09:44→21:38)
[2022-04-07] MEDS: QUEtiapine FUMARATE 25 MG TAB PO SCH ×2 (09:45→21:38)
[2022-04-07] MEDS: fentaNYL Drip 2500mCg/250mlNS 250 ML IV SCH (21:55)
[2022-04-08] VITALS (83 sets, daily range): BP systolic 76–157; BP diastolic 33–116
[2022-04-08] MEDS: PROPOFOL 100 ML IV SCH ×4 (03:10→22:06)
[2022-04-08] MEDS: VANCOMYCIN 750mg/250ml 250 ML IV SCH ×2 (05:33→17:57)
[2022-04-08] MEDS ORDERED: FUROSEMIDE 20 MG/2 ML VIAL IV ONE (10:45)
[2022-04-08] MEDS: PANTOPRAZOLE 40 MG/10 ML VIAL INJ IV SCH (11:11)
[2022-04-08] MEDS: CEFEPIME 1GM/ 50ML 50 ML IV SCH ×2 (11:11→21:30)
[2022-04-08] MEDS: OSELTAMIVIR 75 MG CAP PO SCH ×2 (11:12→21:30)
[2022-04-08] MEDS: ENOXAPARIN SOD 60 MG/0.6 ML SYRINGE SC SCH ×2 (11:12→21:30)
[2022-04-08] MEDS: methylPREDNISolone SOD SUCC 40 MG/ML VL IV SCH ×2 (11:12→21:30)
[2022-04-08] MEDS: QUEtiapine FUMARATE 25 MG TAB PO SCH ×2 (11:12→21:30)
[2022-04-08] MEDS: ALBUTEROL SULF 2.5 MG/0.5ML(0.5%) NEB SOLN NEB SCH ×3 (13:32→18:55)
[2022-04-08] MEDS: IPRATROPIUM BROM 0.5 MG/2.5ML INH SOL NEB SCH ×2 (13:33→18:55)
[2022-04-08] MEDS: NOREPINEPHRINE 8 MG/250ML KIT 250 ML IV SCH (17:50)
[2022-04-08] MEDS ORDERED: PROPOFOL 100 ML IV ONE (21:26)
[2022-04-09] VITALS (90 sets, daily range): BP systolic 62–159; BP diastolic 35–83
[2022-04-09 03:59] LABS: Basophils # (auto) 0.1 10 ^3/uL (0-0.2); Basophils % (auto) 0.6 % (0.0-2.0); Eosinophils # (auto) 0 10 ^3/uL (0-0.8); Hematocrit 36.1 % (36.0-46.0); Hemoglobin 11.6 g/dL (12.2-16.2); Lymphocytes # (auto) 0.9 10 ^3/uL (0.4-5.4); Lymphocytes % (auto) 5.3 % (10.0-50.0); Mean Corpuscular Hemoglobin 29.4 pg (28.0-32.0); Mean Corpuscular Hgb Conc. 32.3 g/dL (32.0-36.0); Monocytes # (auto) 0.7 10 ^3/uL (0-1.3); Monocytes % (auto) 4.3 % (0.0-12.0); Neutrophils # (auto) 14.5 10 ^3/uL (1.6-8.6); Neutrophils % (auto) 89.8 % (37.0-80.0); Red Blood Cells 3.97 10^6/uL (4.0-5.20); Red Cell Distribution Width 14.5 % (11.8-14.3); White Blood Cell 16.1 10^3/uL (4.4-10.8)
[2022-04-09] MEDS: PROPOFOL 100 ML IV SCH ×3 (04:02→22:54)
[2022-04-09 04:20] LABS: BUN/Creatinine Ratio 33.3; Calcium 8.5 mg/dL (8.5-10.1); Potassium 4.1 mmol/L (3.5-5.1)
[2022-04-09] MEDS: VANCOMYCIN 750mg/250ml 250 ML IV SCH ×2 (05:35→18:14)
[2022-04-09] MEDS: ALBUTEROL SULF 2.5 MG/0.5ML(0.5%) NEB SOLN NEB SCH ×3 (07:14→18:26)
[2022-04-09] MEDS: IPRATROPIUM BROM 0.5 MG/2.5ML INH SOL NEB SCH ×3 (07:14→18:26)
[2022-04-09] MEDS: methylPREDNISolone SOD SUCC 40 MG/ML VL IV SCH ×2 (09:48→21:45)
[2022-04-09] MEDS: QUEtiapine FUMARATE 25 MG TAB PO SCH ×2 (09:48→21:46)
[2022-04-09] MEDS: PANTOPRAZOLE 40 MG/10 ML VIAL INJ IV SCH (09:48)
[2022-04-09] MEDS: CEFEPIME 1GM/ 50ML 50 ML IV SCH ×2 (09:48→21:45)
[2022-04-09] MEDS: OSELTAMIVIR 75 MG CAP PO SCH ×2 (09:49→21:46)
[2022-04-09] MEDS: ENOXAPARIN SOD 60 MG/0.6 ML SYRINGE SC SCH ×2 (09:49→21:46)
[2022-04-09] MEDS: fentaNYL Drip 2500mCg/250mlNS 250 ML IV SCH (17:19)
[2022-04-09] MEDS: NOREPINEPHRINE 8 MG/250ML KIT 250 ML IV SCH (20:30)
[2022-04-10] VITALS (98 sets, daily range): BP systolic 80–168; BP diastolic 43–87
[2022-04-10] MEDS: VANCOMYCIN 750mg/250ml 250 ML IV SCH ×2 (06:24→18:18)
[2022-04-10] MEDS: IPRATROPIUM BROM 0.5 MG/2.5ML INH SOL NEB SCH ×3 (06:48→18:16)
[2022-04-10] MEDS: ALBUTEROL SULF 2.5 MG/0.5ML(0.5%) NEB SOLN NEB SCH ×3 (06:48→18:16)
[2022-04-10] MEDS ORDERED: DIGOXIN (250MCG/ML) 2 ML AMPULE IV ONE ×2 (07:45→17:30)
[2022-04-10 09:28] LABS: Calcium 8.5 mg/dL (8.5-10.1); Magnesium 2.4 mg/dL (1.6-2.6); Potassium 3.9 mmol/L (3.5-5.1)
[2022-04-10] MEDS: OSELTAMIVIR 75 MG CAP PO SCH ×2 (10:00→22:06)
[2022-04-10] MEDS: ENOXAPARIN SOD 60 MG/0.6 ML SYRINGE SC SCH ×2 (10:00→22:06)
[2022-04-10] MEDS: methylPREDNISolone SOD SUCC 40 MG/ML VL IV SCH ×2 (10:11→22:06)
[2022-04-10] MEDS: CEFEPIME 1GM/ 50ML 50 ML IV SCH ×2 (10:11→22:07)
[2022-04-10] MEDS: PANTOPRAZOLE 40 MG/10 ML VIAL INJ IV SCH (10:11)
[2022-04-10] MEDS: QUEtiapine FUMARATE 25 MG TAB PO SCH ×2 (10:12→22:06)
[2022-04-10] MEDS: fentaNYL Drip 2500mCg/250mlNS 250 ML IV SCH (10:22)
[2022-04-10 10:55] LABS: Basophils # (auto) 0 10 ^3/uL (0-0.2); Basophils % (auto) 0.1 % (0.0-2.0); Eosinophils # (auto) 0 10 ^3/uL (0-0.8); Hematocrit 38.4 % (36.0-46.0); Hemoglobin 12.1 g/dL (12.2-16.2); Lymphocytes # (auto) 1.3 10 ^3/uL (0.4-5.4); Lymphocytes % (auto) 7.8 % (10.0-50.0); Mean Corpuscular Hemoglobin 29.4 pg (28.0-32.0); Mean Corpuscular Hgb Conc. 31.6 g/dL (32.0-36.0); Mean Corpuscular Volume 92.9 fL (80.0-100.0); Monocytes # (auto) 1.2 10 ^3/uL (0-1.3); Monocytes % (auto) 7.2 % (0.0-12.0); Neutrophils # (auto) 13.7 10 ^3/uL (1.6-8.6); Neutrophils % (auto) 84.9 % (37.0-80.0); Nucleated Red Blood Cells % 0.1 %; Red Blood Cells 4.13 10^6/uL (4.0-5.20); Red Cell Distribution Width 14.3 % (11.8-14.3); White Blood Cell 16.2 10^3/uL (4.4-10.8)
[2022-04-10] MEDS: NOREPINEPHRINE 8 MG/250ML KIT 250 ML IV SCH (17:17)
[2022-04-10] MEDS: PROPOFOL 100 ML IV SCH (22:07)
[2022-04-11] VITALS (102 sets, daily range): BP systolic 79–157; BP diastolic 38–89
[2022-04-11] MEDS: METOPROLOL TARTRATE 1MG/1ML-5ML VIAL IV PRN (00:55)
[2022-04-11] MEDS: PROPOFOL 100 ML IV SCH ×5 (02:39→21:56)
[2022-04-11] MEDS: ALBUTEROL SULF 2.5 MG/0.5ML(0.5%) NEB SOLN NEB SCH ×4 (06:01→18:17)
[2022-04-11] MEDS: IPRATROPIUM BROM 0.5 MG/2.5ML INH SOL NEB SCH ×3 (06:02→18:17)
[2022-04-11] MEDS: VANCOMYCIN 750mg/250ml 250 ML IV SCH ×2 (06:19→18:00)
[2022-04-11] MEDS: OSELTAMIVIR 75 MG CAP PO SCH ×2 (10:00→21:56)
[2022-04-11] MEDS: PANTOPRAZOLE 40 MG/10 ML VIAL INJ IV SCH (10:02)
[2022-04-11] MEDS: QUEtiapine FUMARATE 25 MG TAB PO SCH ×2 (10:03→21:55)
[2022-04-11] MEDS: methylPREDNISolone SOD SUCC 40 MG/ML VL IV SCH ×2 (10:03→21:55)
[2022-04-11] MEDS: ENOXAPARIN SOD 60 MG/0.6 ML SYRINGE SC SCH ×2 (10:04→21:55)
[2022-04-11] MEDS: CEFEPIME 1GM/ 50ML 50 ML IV SCH ×2 (10:04→21:55)
[2022-04-11] MEDS: fentaNYL Drip 2500mCg/250mlNS 250 ML IV SCH (11:30)
[2022-04-11] MEDS ORDERED: DIGOXIN (250MCG/ML) 2 ML AMPULE IV ONE ×2 (13:15)
[2022-04-11] MEDS: NOREPINEPHRINE 8 MG/250ML KIT 250 ML IV SCH (16:00)
[2022-04-11] MEDS ORDERED: AMIODARONE 450mg/250ml AE 250 ML IV ONE (16:53)
[2022-04-11] MEDS ORDERED: AMIODARONE 450mg/250ml AE 250 ML IV SCH (17:15)
[2022-04-11 17:31] LABS: Magnesium 2.1 mg/dL (1.6-2.6); Potassium 4.1 mmol/L (3.5-5.1)
[2022-04-11] MEDS: AMIODARONE 450mg/250ml AE 250 ML IV SCH (23:25)
[2022-04-12] VITALS (98 sets, daily range): BP systolic 81–141; BP diastolic 39–99
[2022-04-12] MEDS: NOREPINEPHRINE 8 MG/250ML KIT 250 ML IV SCH (01:50)
[2022-04-12 05:43] LABS: Basophils # (auto) 0 10 ^3/uL (0-0.2); Basophils % (auto) 0.2 % (0.0-2.0); Eosinophils # (auto) 0 10 ^3/uL (0-0.8); Hematocrit 39.2 % (36.0-46.0); Hemoglobin 12.6 g/dL (12.2-16.2); Lymphocytes # (auto) 0.7 10 ^3/uL (0.4-5.4); Lymphocytes % (auto) 4.2 % (10.0-50.0); Mean Corpuscular Hemoglobin 29.5 pg (28.0-32.0); Mean Corpuscular Hgb Conc. 32.1 g/dL (32.0-36.0); Mean Corpuscular Volume 91.8 fL (80.0-100.0); Monocytes # (auto) 0.5 10 ^3/uL (0-1.3); Monocytes % (auto) 3.3 % (0.0-12.0); Neutrophils # (auto) 14.2 10 ^3/uL (1.6-8.6); Neutrophils % (auto) 92.3 % (37.0-80.0); Red Blood Cells 4.28 10^6/uL (4.0-5.20); Red Cell Distribution Width 14.3 % (11.8-14.3); White Blood Cell 15.4 10^3/uL (4.4-10.8)
[2022-04-12 06:05] LABS: BUN/Creatinine Ratio 35.6; Calcium 8.5 mg/dL (8.5-10.1)
[2022-04-12] MEDS: PROPOFOL 100 ML IV SCH ×2 (06:19→18:50)
[2022-04-12] MEDS: VANCOMYCIN 750mg/250ml 250 ML IV SCH ×2 (06:27→17:51)
[2022-04-12] MEDS: ALBUTEROL SULF 2.5 MG/0.5ML(0.5%) NEB SOLN NEB SCH ×3 (06:49→17:57)
[2022-04-12] MEDS: IPRATROPIUM BROM 0.5 MG/2.5ML INH SOL NEB SCH ×3 (06:49→17:57)
[2022-04-12] MEDS: PANTOPRAZOLE 40 MG/10 ML VIAL INJ IV SCH (09:45)
[2022-04-12] MEDS: DIGOXIN (250MCG/ML) 2 ML AMPULE IV SCH (09:45)
[2022-04-12] MEDS: OSELTAMIVIR 75 MG CAP PO SCH ×2 (09:45→22:00)
[2022-04-12] MEDS: CEFEPIME 1GM/ 50ML 50 ML IV SCH ×2 (09:45→22:03)
[2022-04-12] MEDS: QUEtiapine FUMARATE 25 MG TAB PO SCH ×2 (09:45→22:04)
[2022-04-12] MEDS: methylPREDNISolone SOD SUCC 40 MG/ML VL IV SCH ×2 (09:45→22:03)
[2022-04-12] MEDS: ENOXAPARIN SOD 60 MG/0.6 ML SYRINGE SC SCH ×2 (09:46→22:04)
[2022-04-12] MEDS: METOPROLOL TARTRATE 1MG/1ML-5ML VIAL IV PRN (10:45)
[2022-04-12] MEDS: fentaNYL Drip 2500mCg/250mlNS 250 ML IV SCH (11:30)
[2022-04-12] MEDS: AMIODARONE 450mg/250ml AE 250 ML IV SCH (15:10)
[2022-04-13] VITALS (100 sets, daily range): BP systolic 76–139; BP diastolic 38–77
[2022-04-13] MEDS: PROPOFOL 100 ML IV SCH (01:50)
[2022-04-13] MEDS: AMIODARONE 450mg/250ml AE 250 ML IV SCH ×2 (05:15→20:15)
[2022-04-13] MEDS ORDERED: ALBUTEROL MEDNEB 2.5 mg/3ml NEB ONE ×3 (05:50→18:04)
[2022-04-13] MEDS: VANCOMYCIN 750mg/250ml 250 ML IV SCH ×2 (06:16→17:58)
[2022-04-13] MEDS: ALBUTEROL SULF 2.5 MG/0.5ML(0.5%) NEB SOLN NEB SCH ×3 (07:00→19:05)
[2022-04-13] MEDS: IPRATROPIUM BROM 0.5 MG/2.5ML INH SOL NEB SCH ×3 (07:00→19:06)
[2022-04-13] MEDS: OSELTAMIVIR 75 MG CAP PO SCH ×2 (10:00→22:00)
[2022-04-13] MEDS: DIGOXIN (250MCG/ML) 2 ML AMPULE IV SCH (10:52)
[2022-04-13] MEDS: methylPREDNISolone SOD SUCC 40 MG/ML VL IV SCH ×2 (10:52→22:20)
[2022-04-13] MEDS: CEFEPIME 1GM/ 50ML 50 ML IV SCH ×2 (10:52→22:21)
[2022-04-13] MEDS: PANTOPRAZOLE 40 MG/10 ML VIAL INJ IV SCH (10:52)
[2022-04-13] MEDS: ENOXAPARIN SOD 60 MG/0.6 ML SYRINGE SC SCH ×2 (10:53→22:21)
[2022-04-13] MEDS: QUEtiapine FUMARATE 25 MG TAB PO SCH ×2 (10:53→22:21)
[2022-04-13] MEDS: fentaNYL Drip 2500mCg/250mlNS 250 ML IV SCH (11:30)
[2022-04-13] MEDS: NOREPINEPHRINE 8 MG/250ML KIT 250 ML IV SCH (23:45)
[2022-04-14] VITALS (90 sets, daily range): BP systolic 78–127; BP diastolic 30–59
[2022-04-14] MEDS: VANCOMYCIN 750mg/250ml 250 ML IV SCH ×2 (05:51→17:35)
[2022-04-14] MEDS ORDERED: ALBUTEROL MEDNEB 2.5 mg/3ml NEB ONE (05:52)
[2022-04-14 06:45] LABS: Basophils # (auto) 0 10 ^3/uL (0-0.2); Basophils % (auto) 0.2 % (0.0-2.0); Eosinophils # (auto) 0 10 ^3/uL (0-0.8); Hematocrit 32.8 % (36.0-46.0); Hemoglobin 10.9 g/dL (12.2-16.2); Lymphocytes # (auto) 0.6 10 ^3/uL (0.4-5.4); Lymphocytes % (auto) 4.5 % (10.0-50.0); Mean Corpuscular Hemoglobin 30.5 pg (28.0-32.0); Mean Corpuscular Hgb Conc. 33.3 g/dL (32.0-36.0); Mean Corpuscular Volume 91.4 fL (80.0-100.0); Monocytes # (auto) 0.5 10 ^3/uL (0-1.3); Monocytes % (auto) 3.9 % (0.0-12.0); Neutrophils % (auto) 91.4 % (37.0-80.0); Red Blood Cells 3.59 10^6/uL (4.0-5.20); Red Cell Distribution Width 14.3 % (11.8-14.3); White Blood Cell 13.2 10^3/uL (4.4-10.8)
[2022-04-14] MEDS: ALBUTEROL SULF 2.5 MG/0.5ML(0.5%) NEB SOLN NEB SCH ×4 (06:48→18:54)
[2022-04-14] MEDS: IPRATROPIUM BROM 0.5 MG/2.5ML INH SOL NEB SCH ×3 (06:48→18:54)
[2022-04-14 06:50] LABS: BUN/Creatinine Ratio 46.3; Calcium 8.6 mg/dL (8.5-10.1); Potassium 3.5 mmol/L (3.5-5.1)
[2022-04-14] MEDS: OSELTAMIVIR 75 MG CAP PO SCH ×2 (08:28→21:49)
[2022-04-14] MEDS ORDERED: MIDODRINE HCL 10 MG TAB PO ONE (08:30)
[2022-04-14] MEDS: DIGOXIN (250MCG/ML) 2 ML AMPULE IV SCH (09:11)
[2022-04-14] MEDS: CEFEPIME 1GM/ 50ML 50 ML IV SCH ×2 (09:12→22:14)
[2022-04-14] MEDS: PANTOPRAZOLE 40 MG/10 ML VIAL INJ IV SCH (09:13)
[2022-04-14] MEDS: ENOXAPARIN SOD 60 MG/0.6 ML SYRINGE SC SCH ×2 (09:13→22:14)
[2022-04-14] MEDS: methylPREDNISolone SOD SUCC 40 MG/ML VL IV SCH ×2 (09:13→22:14)
[2022-04-14] MEDS: QUEtiapine FUMARATE 25 MG TAB PO SCH ×2 (09:13→21:48)
[2022-04-14] MEDS: METOPROLOL TARTRATE 1MG/1ML-5ML VIAL IV PRN (10:16)
[2022-04-14] MEDS: AMIODARONE 450mg/250ml AE 250 ML IV SCH (11:15)
[2022-04-14] MEDS: fentaNYL Drip 2500mCg/250mlNS 250 ML IV SCH (11:20)
[2022-04-14] MEDS: MIDODRINE HCL 10 MG TAB PO SCH ×2 (12:00→17:35)
[2022-04-14] MEDS: PROPOFOL 100 ML IV SCH (22:30)
[2022-04-14] MEDS: NOREPINEPHRINE 8 MG/250ML KIT 250 ML IV SCH (23:45)
[2022-04-15] VITALS (20 sets, daily range): BP systolic 109–135; BP diastolic 43–63
[2022-04-15] MEDS: ALBUTEROL SULF 2.5 MG/0.5ML(0.5%) NEB SOLN NEB SCH ×2 (06:00→19:03)
[2022-04-15] MEDS: MIDODRINE HCL 10 MG TAB PO SCH ×3 (06:00→18:22)
[2022-04-15] MEDS: IPRATROPIUM BROM 0.5 MG/2.5ML INH SOL NEB SCH ×2 (06:51→19:03)
[2022-04-15] MEDS: VANCOMYCIN 750mg/250ml 250 ML IV SCH ×2 (07:00→18:21)
[2022-04-15] MEDS: DIGOXIN (250MCG/ML) 2 ML AMPULE IV SCH (10:28)
[2022-04-15] MEDS: PANTOPRAZOLE 40 MG/10 ML VIAL INJ IV SCH (10:29)
[2022-04-15] MEDS: OSELTAMIVIR 75 MG CAP PO SCH ×2 (10:29→22:31)
[2022-04-15] MEDS: QUEtiapine FUMARATE 25 MG TAB PO SCH ×2 (10:29→22:31)
[2022-04-15] MEDS: ENOXAPARIN SOD 60 MG/0.6 ML SYRINGE SC SCH ×2 (10:29→22:31)
[2022-04-15] MEDS: methylPREDNISolone SOD SUCC 40 MG/ML VL IV SCH ×2 (10:29→22:31)
[2022-04-15] MEDS: CEFEPIME 1GM/ 50ML 50 ML IV SCH ×2 (10:57→22:30)
[2022-04-16] VITALS (7 sets, daily range): BP systolic 120–158; BP diastolic 56–78
[2022-04-16] MEDS: VANCOMYCIN 750mg/250ml 250 ML IV SCH (05:53)
[2022-04-16] MEDS: MIDODRINE HCL 10 MG TAB PO SCH ×4 (05:53→17:57)
[2022-04-16 06:39] LABS: Basophils # (auto) 0 10 ^3/uL (0-0.2); Basophils % (auto) 0.3 % (0.0-2.0); Eosinophils # (auto) 0 10 ^3/uL (0-0.8); Hematocrit 36.1 % (36.0-46.0); Hemoglobin 11.6 g/dL (12.2-16.2); Lymphocytes # (auto) 0.4 10 ^3/uL (0.4-5.4); Lymphocytes % (auto) 3.4 % (10.0-50.0); Mean Corpuscular Hemoglobin 29.9 pg (28.0-32.0); Mean Corpuscular Hgb Conc. 32.2 g/dL (32.0-36.0); Mean Corpuscular Volume 92.9 fL (80.0-100.0); Monocytes # (auto) 0.3 10 ^3/uL (0-1.3); Monocytes % (auto) 3.2 % (0.0-12.0); Neutrophils # (auto) 10.1 10 ^3/uL (1.6-8.6); Neutrophils % (auto) 93.1 % (37.0-80.0); Red Blood Cells 3.89 10^6/uL (4.0-5.20); Red Cell Distribution Width 14.3 % (11.8-14.3); White Blood Cell 10.8 10^3/uL (4.4-10.8)
[2022-04-16 06:55] LABS: Potassium 4.2 mmol/L (3.5-5.1)
[2022-04-16 06:58] LABS: Albumin 2.9 g/dL (3.4-5.0); BUN/Creatinine Ratio 63.6; Calcium 8.9 mg/dL (8.5-10.1)
[2022-04-16 07:01] LABS: Bilirubin, Total 0.8 mg/dL (0.2-1.0); Total Protein 5.5 g/dL (6.4-8.2)
[2022-04-16] MEDS: methylPREDNISolone SOD SUCC 40 MG/ML VL IV SCH ×2 (10:43→22:18)
[2022-04-16] MEDS: QUEtiapine FUMARATE 25 MG TAB PO SCH ×2 (10:43→22:18)
[2022-04-16] MEDS: CEFEPIME 1GM/ 50ML 50 ML IV SCH (10:43)
[2022-04-16] MEDS: OSELTAMIVIR 75 MG CAP PO SCH ×2 (10:45→22:18)
[2022-04-16] MEDS: ENOXAPARIN SOD 60 MG/0.6 ML SYRINGE SC SCH ×2 (10:45→22:18)
[2022-04-16] MEDS: ALBUTEROL SULF 2.5 MG/0.5ML(0.5%) NEB SOLN NEB SCH (18:30)
[2022-04-16] MEDS: IPRATROPIUM BROM 0.5 MG/2.5ML INH SOL NEB SCH (18:30)
[2022-04-16] MEDS ORDERED: VANCOMYCIN 750mg/250ml 250 ML IV SCH (20:00)
[2022-04-17 05:00] VITALS: BP 131/62
[2022-04-17] MEDS: MIDODRINE HCL 10 MG TAB PO SCH ×3 (05:53→18:23)
[2022-04-17] MEDS: IPRATROPIUM BROM 0.5 MG/2.5ML INH SOL NEB SCH ×3 (06:50→18:05)
[2022-04-17] MEDS: ALBUTEROL SULF 2.5 MG/0.5ML(0.5%) NEB SOLN NEB SCH ×3 (06:50→18:05)
[2022-04-17 07:30] VITALS: BP 98/53
[2022-04-17] MEDS: OSELTAMIVIR 75 MG CAP PO SCH ×2 (09:13→22:00)
[2022-04-17] MEDS: methylPREDNISolone SOD SUCC 40 MG/ML VL IV SCH ×2 (09:13→21:58)
[2022-04-17] MEDS: QUEtiapine FUMARATE 25 MG TAB PO SCH ×2 (09:13→22:00)
[2022-04-17] MEDS: ENOXAPARIN SOD 60 MG/0.6 ML SYRINGE SC SCH ×2 (09:15→22:01)
[2022-04-17 12:48] VITALS: BP 125/71
[2022-04-17 16:22] VITALS: BP 145/61
[2022-04-17] MEDS: VANCOMYCIN 750mg/250ml 250 ML IV SCH (16:58)
[2022-04-17 20:00] VITALS: BP 145/63
[2022-04-17] MEDS: METOPROLOL TARTRATE 25 MG TAB PO SCH (21:59)
[2022-04-18 05:00] VITALS: BP 131/69
[2022-04-18] MEDS: MIDODRINE HCL 10 MG TAB PO SCH ×3 (05:53→17:56)
[2022-04-18] MEDS: VANCOMYCIN 750mg/250ml 250 ML IV SCH (06:02)
[2022-04-18] MEDS: IPRATROPIUM BROM 0.5 MG/2.5ML INH SOL NEB SCH ×3 (07:20→19:00)
[2022-04-18] MEDS: ALBUTEROL SULF 2.5 MG/0.5ML(0.5%) NEB SOLN NEB SCH ×3 (07:20→18:57)
[2022-04-18 07:30] VITALS: BP 138/74
[2022-04-18] MEDS: methylPREDNISolone SOD SUCC 40 MG/ML VL IV SCH ×2 (09:32→22:17)
[2022-04-18] MEDS: METOPROLOL TARTRATE 25 MG TAB PO SCH ×2 (09:34→22:14)
[2022-04-18] MEDS: QUEtiapine FUMARATE 25 MG TAB PO SCH ×2 (09:35→22:12)
[2022-04-18] MEDS: OSELTAMIVIR 75 MG CAP PO SCH ×2 (09:35→22:12)
[2022-04-18] MEDS: ENOXAPARIN SOD 60 MG/0.6 ML SYRINGE SC SCH ×2 (09:36→22:17)
[2022-04-18 13:00] VITALS: BP 134/52
[2022-04-18 17:00] VITALS: BP 131/73
[2022-04-18 20:00] VITALS: BP 119/55
[2022-04-18 22:00] VITALS: BP 119/55
[2022-04-19] VITALS (7 sets, daily range): BP systolic 101–129; BP diastolic 38–103
[2022-04-19] MEDS: MIDODRINE HCL 10 MG TAB PO SCH ×4 (05:56→17:03)
[2022-04-19] MEDS: IPRATROPIUM BROM 0.5 MG/2.5ML INH SOL NEB SCH ×3 (06:45→19:01)
[2022-04-19] MEDS: ALBUTEROL SULF 2.5 MG/0.5ML(0.5%) NEB SOLN NEB SCH ×3 (06:45→19:01)
[2022-04-19] MEDS: METOPROLOL TARTRATE 25 MG TAB PO SCH ×2 (10:00→21:42)
[2022-04-19] MEDS: methylPREDNISolone SOD SUCC 40 MG/ML VL IV SCH (10:02)
[2022-04-19] MEDS: OSELTAMIVIR 75 MG CAP PO SCH ×2 (10:02→21:42)
[2022-04-19] MEDS: QUEtiapine FUMARATE 25 MG TAB PO SCH ×2 (10:02→21:42)
[2022-04-19] MEDS: ENOXAPARIN SOD 60 MG/0.6 ML SYRINGE SC SCH ×2 (10:02→21:43)
[2022-04-19 16:00] LABS: Albumin 2.8 g/dL (3.4-5.0); Anion Gap 5 (5-15); Calcium 8.5 mg/dL (8.5-10.1); Carbon Dioxide 37 mmol/L (21-32); Chloride 99 mmol/L (98-107); Glucose 89 mg/dL (74-106); Sodium 141 mmol/L (136-145)
[2022-04-19 16:07] LABS: Alanine Aminotransferase 65 U/L (13-56); Alkaline Phosphatase 75 U/L (45-117); Aspartate Aminotransferase 29 U/L (15-37); BUN/Creatinine Ratio 58.8; Bilirubin, Total 0.8 mg/dL (0.2-1.0); Blood Urea Nitrogen 20 mg/dL (7-18); GFR African American 246 mL/min; GFR Non-African American 204 mL/min; Total Protein 5.5 g/dL (6.4-8.2)
[2022-04-20 05:00] VITALS: BP 127/64
[2022-04-20] MEDS: MIDODRINE HCL 10 MG TAB PO SCH ×3 (05:48→17:47)
[2022-04-20] MEDS: ALBUTEROL SULF 2.5 MG/0.5ML(0.5%) NEB SOLN NEB SCH ×3 (05:49→19:43)
[2022-04-20] MEDS: IPRATROPIUM BROM 0.5 MG/2.5ML INH SOL NEB SCH ×3 (05:49→19:43)
[2022-04-20 08:30] VITALS: BP 105/62
[2022-04-20] MEDS: QUEtiapine FUMARATE 25 MG TAB PO SCH ×2 (10:23→22:44)
[2022-04-20] MEDS: OSELTAMIVIR 75 MG CAP PO SCH ×2 (10:23→22:45)
[2022-04-20] MEDS: ENOXAPARIN SOD 60 MG/0.6 ML SYRINGE SC SCH ×2 (10:24→22:45)
[2022-04-20] MEDS: methylPREDNISolone SOD SUCC 40 MG/ML VL IV SCH (10:24)
[2022-04-20] MEDS: METOPROLOL TARTRATE 25 MG TAB PO SCH ×3 (10:25→22:00)
[2022-04-20] MEDS ORDERED: NutriHep RTU 240 mL Unflavored PO SCH (12:00)
[2022-04-20 12:30] VITALS: BP 94/32
[2022-04-20 12:36] VITALS: BP 102/56
[2022-04-20 17:00] VITALS: BP 109/63
[2022-04-20] MEDS: Glucerna Carbsteady SHAKE Vanilla 8oz PO SCH (18:00)
[2022-04-20 22:00] VITALS: BP 104/50
[2022-04-21 05:00] VITALS: BP 101/57
[2022-04-21] MEDS: IPRATROPIUM BROM 0.5 MG/2.5ML INH SOL NEB SCH ×3 (05:58→18:26)
[2022-04-21] MEDS: ALBUTEROL SULF 2.5 MG/0.5ML(0.5%) NEB SOLN NEB SCH ×3 (05:58→18:26)
[2022-04-21] MEDS: MIDODRINE HCL 10 MG TAB PO SCH ×3 (06:25→18:00)
[2022-04-21] MEDS: Glucerna Carbsteady SHAKE Vanilla 8oz PO SCH ×3 (08:00→18:22)
[2022-04-21 08:51] VITALS: BP 99/50
[2022-04-21] MEDS: SACUBITRIL-VALSARTAN 24mg/26mg TAB PO SCH ×2 (10:00→21:27)
[2022-04-21] MEDS: METOPROLOL SUCCINATE XL 50 MG TAB PO SCH (10:00)
[2022-04-21] MEDS: OSELTAMIVIR 75 MG CAP PO SCH ×2 (10:07→21:27)
[2022-04-21] MEDS: QUEtiapine FUMARATE 25 MG TAB PO SCH ×2 (10:07→21:27)
[2022-04-21] MEDS: ENOXAPARIN SOD 60 MG/0.6 ML SYRINGE SC SCH ×2 (10:07→21:18)
[2022-04-21] MEDS: methylPREDNISolone SOD SUCC 40 MG/ML VL IV SCH (10:07)
[2022-04-21 12:57] VITALS: BP 95/42
[2022-04-21 16:31] VITALS: BP 95/45
[2022-04-21 19:55] VITALS: BP 95/45
[2022-04-21 22:00] VITALS: BP 99/51
[2022-04-22 05:00] VITALS: BP 113/55
[2022-04-22] MEDS: MIDODRINE HCL 10 MG TAB PO SCH ×3 (06:10→18:25)
[2022-04-22] MEDS: IPRATROPIUM BROM 0.5 MG/2.5ML INH SOL NEB SCH ×3 (06:51→18:18)
[2022-04-22] MEDS: ALBUTEROL SULF 2.5 MG/0.5ML(0.5%) NEB SOLN NEB SCH ×3 (06:51→18:18)
[2022-04-22 08:00] VITALS: BP 102/54
[2022-04-22] MEDS: Glucerna Carbsteady SHAKE Vanilla 8oz PO SCH ×3 (08:00→18:18)
[2022-04-22] MEDS ORDERED: APIXABAN 5 MG TAB PO SCH (10:00)
[2022-04-22] MEDS: methylPREDNISolone SOD SUCC 40 MG/ML VL IV SCH (10:13)
[2022-04-22] MEDS: QUEtiapine FUMARATE 25 MG TAB PO SCH (10:14)
[2022-04-22] MEDS: SACUBITRIL-VALSARTAN 24mg/26mg TAB PO SCH (10:14)
[2022-04-22] MEDS: OSELTAMIVIR 75 MG CAP PO SCH (10:14)
[2022-04-22] MEDS: METOPROLOL SUCCINATE XL 50 MG TAB PO SCH (10:15)
[2022-04-22 11:42] VITALS: BP 97/45
[2022-04-22 15:27] VITALS: BP 102/54
[2022-04-22 16:00] VITALS: BP 92/47
== END 2022-04-22 19:45 | DRG 870 ==
LOC: ER 15:14 → TELE 19:07 → EDUNIT# 19:07 → ICU WEST 03-31 08:35 → TELE-WESTW 04-15 03:30
PROVIDERS: ADMIT Nurse Practitioner Family; ATTEND Family Medicine
PROC: 5A1955Z Respiratory Ventilation, Greater than 96 Consecutive Hours (ICD-10-PCS; principal; 2022-03-29)
PROC: 0BH17EZ Insertion of Endotracheal Airway into Trachea, Via Natural or Artificial Opening (ICD-10-PCS; 2022-03-29)
PROC: 06HY33Z Insertion of Infusion Device into Lower Vein, Percutaneous Approach (ICD-10-PCS; 2022-03-30)
DX: A41.9 Sepsis, unspecified organism (principal); R65.21 Severe sepsis with septic shock; J96.01 Acute respiratory failure with hypoxia; J10.08 Influenza due to other identified influenza virus with other specified pneumonia; J12.9 Viral pneumonia, unspecified; I50.21 Acute systolic (congestive) heart failure; R57.0 Cardiogenic shock; I24.8 Other forms of acute ischemic heart disease; J98.11 Atelectasis; R64 Cachexia; Z68.1 Body mass index [BMI] 19.9 or less, adult; N39.0 Urinary tract infection, site not specified; J44.0 Chronic obstructive pulmonary disease with (acute) lower respiratory infection; J44.1 Chronic obstructive pulmonary disease with (acute) exacerbation; I47.1 Supraventricular tachycardia; Z20.822 Contact with and (suspected) exposure to COVID-19; E11.9 Type 2 diabetes mellitus without complications; I11.0 Hypertensive heart disease with heart failure; E78.5 Hyperlipidemia, unspecified; I25.10 Atherosclerotic heart disease of native coronary artery without angina pectoris; I48.0 Paroxysmal atrial fibrillation; J98.4 Other disorders of lung; Z28.310 Unvaccinated for COVID-19; Z79.01 Long term (current) use of anticoagulants; Z79.4 Long term (current) use of insulin; Z79.84 Long term (current) use of oral hypoglycemic drugs; Z85.038 Personal history of other malignant neoplasm of large intestine; Z78.9 Other specified health status; Z87.891 Personal history of nicotine dependence
CPT/HCPCS: 36415; 36600; 71045; 71250; 80048; 80053; 80069; 80162; 80202; 81001; 82565; 82805; 83735; 83880; 84132; 84484; 85025; 85379; 85610; 85730; 87040; 87070; 87081; 87086; 87205; 87426; 87804; 92610; 93005; 93306; 94002; 94003; 94640; 94644; 96365; 96367; 96375; 97110; 97116; 97163; 97530; C9113; G0378; J0171; J0696; J2405; J2704; J7060

== ENCOUNTER 2022-09-09 19:40 | Inpatient (IN) | payer MEDICARE, MEDICAID ==
[~2022-09-09] VITALS: Ht 157.5 cm; Wt 52.0 kg
[2022-09-09] MEDS ORDERED: cefTRIAXone 1GM/50ML D5W 50 ML IV ONE (23:30)
[2022-09-09] MEDS ORDERED: AZITHROMYCIN 250 MG TAB PO ONE (23:30)
[2022-09-10 00:18] LABS: Basophils # (auto) 0.1 10 ^3/uL (0-0.2); Basophils % (auto) 1.3 % (0.0-2.0); Eosinophils # (auto) 0.2 10 ^3/uL (0-0.8); Eosinophils % (auto) 2.3 % (0.0-7.0); Hematocrit 35.5 % (36.0-46.0); Hemoglobin 11.5 g/dL (12.2-16.2); Lymphocytes # (auto) 2.7 10 ^3/uL (0.4-5.4); Lymphocytes % (auto) 33.1 % (10.0-50.0); Mean Corpuscular Hemoglobin 28.8 pg (28.0-32.0); Mean Corpuscular Hgb Conc. 32.3 g/dL (32.0-36.0); Monocytes # (auto) 0.7 10 ^3/uL (0-1.3); Monocytes % (auto) 8.9 % (0.0-12.0); Neutrophils # (auto) 4.4 10 ^3/uL (1.6-8.6); Neutrophils % (auto) 54.4 % (37.0-80.0); Nucleated Red Blood Cells % 0.2 %; Red Blood Cells 3.99 10^6/uL (4.0-5.20); Red Cell Distribution Width 13.6 % (11.8-14.3); White Blood Cell 8.1 10^3/uL (4.4-10.8)
[2022-09-10 00:32] LABS: Urine WBC None Seen /hpf (0 - 5)
[2022-09-10 00:36] LABS: Albumin 3.7 g/dL (3.4-5.0); Calcium 9.7 mg/dL (8.5-10.1); Potassium 4.4 mmol/L (3.5-5.1)
[2022-09-10] MEDS ORDERED: ALBUTEROL SULF 2.5 MG/0.5ML(0.5%) NEB SOLN NEB ONE (00:45)
[2022-09-10] MEDS ORDERED: IPRATROPIUM BROM 0.5 MG/2.5ML INH SOL NEB ONE (00:45)
[2022-09-10 00:47] LABS: BUN/Creatinine Ratio 35.2 (10.0-20.0); Bilirubin, Total 0.2 mg/dL (0.2-1.0); Total Protein 7.7 g/dL (6.4-8.2)
[2022-09-10 00:58] LABS: Urine Bacteria NONE SEEN /hpf (None Seen); Urine Blood Negative /uL (Negative); Urine Specific Gravity 1.007 (1.001-1.035)
[2022-09-10] MEDS ORDERED: MORPHINE SULFATE INJ 2 MG/ml SYRG IV PRN (01:45)
[2022-09-10] MEDS ORDERED: IPRATROPIUM BROM 0.5 MG/2.5ML INH SOL NEB PRN (01:45)
[2022-09-10] MEDS ORDERED: ALBUTEROL SULF 2.5 MG/0.5ML(0.5%) NEB SOLN NEB PRN (01:45)
[2022-09-10] MEDS ORDERED: NITROGLYCERIN 0.4 MG SL TAB SL PRN (01:45)
[2022-09-10] MEDS ORDERED: ONDANSETRON HCL 4 MG/2 ML VIAL IV PRN (01:45)
[2022-09-10 02:53] VITALS: BP 114/70
[2022-09-10] MEDS: ACETAMINOPHEN 325 MG TAB PO PRN (03:30)
[2022-09-10] MEDS: METOPROLOL SUCCINATE XL 50 MG TAB PO SCH (10:45)
[2022-09-10] MEDS: PANTOPRAZOLE 40 MG TAB PO SCH (10:46)
[2022-09-10] MEDS: APIXABAN 5 MG TAB PO SCH ×2 (10:46→21:59)
[2022-09-10] MEDS ORDERED: IPRATROPIUM BROM 0.5 MG/2.5ML INH SOL NEB SCH (14:00)
[2022-09-10] MEDS ORDERED: ALBUTEROL SULF 2.5 MG/0.5ML(0.5%) NEB SOLN NEB SCH (14:00)
[2022-09-10] MEDS ORDERED: CHOLECALCIFEROL (VITD3) 2,000 UNIT CAP/TAB PO ONE (14:00)
[2022-09-10] MEDS ORDERED: ZINC SULFATE 220mg CAP or TAB PO ONE (14:00)
[2022-09-10] MEDS: PREGABALIN CAPSULE 75 MG CAP PO SCH ×2 (15:49→21:59)
[2022-09-10] MEDS: methylPREDNISolone SOD SUCC 125 MG/2 ML VL IV SCH ×2 (15:49→21:59)
[2022-09-10] MEDS: IPRATROPIUM BROM 0.5 MG/2.5ML INH SOL NEB SCH ×2 (17:14→22:27)
[2022-09-10] MEDS: ALBUTEROL SULF 2.5 MG/0.5ML(0.5%) NEB SOLN NEB SCH ×2 (17:14→22:27)
[2022-09-10] MEDS: cefTRIAXone 1GM/50ML D5W 50 ML IV SCH (20:48)
[2022-09-10] MEDS: AZITHROMYCIN 500MG/ 250ML 250 ML IV SCH (21:59)
[2022-09-10 22:00] VITALS: BP 124/56
[2022-09-10] MEDS: ASCORBIC ACID 500 MG TAB PO SCH (22:00)
[2022-09-11] MEDS: ALBUTEROL SULF 2.5 MG/0.5ML(0.5%) NEB SOLN NEB SCH ×6 (01:55→22:05)
[2022-09-11] MEDS: IPRATROPIUM BROM 0.5 MG/2.5ML INH SOL NEB SCH ×6 (01:56→22:05)
[2022-09-11] MEDS: ACETAMINOPHEN 325 MG TAB PO PRN ×3 (02:38→18:43)
[2022-09-11 05:00] VITALS: BP 102/53
[2022-09-11] MEDS: methylPREDNISolone SOD SUCC 125 MG/2 ML VL IV SCH ×3 (06:08→21:51)
[2022-09-11 06:23] LABS: Basophils # (auto) 0 10 ^3/uL (0-0.2); Basophils % (auto) 0.3 % (0.0-2.0); Eosinophils # (auto) 0 10 ^3/uL (0-0.8); Hematocrit 34.2 % (36.0-46.0); Hemoglobin 11.3 g/dL (12.2-16.2); Lymphocytes # (auto) 0.9 10 ^3/uL (0.4-5.4); Lymphocytes % (auto) 28.5 % (10.0-50.0); Mean Corpuscular Hgb Conc. 32.9 g/dL (32.0-36.0); Mean Corpuscular Volume 91.1 fL (80.0-100.0); Monocytes # (auto) 0 10 ^3/uL (0-1.3); Monocytes % (auto) 1.5 % (0.0-12.0); Neutrophils # (auto) 2.2 10 ^3/uL (1.6-8.6); Neutrophils % (auto) 69.7 % (37.0-80.0); Nucleated Red Blood Cells % 0.2 %; Red Blood Cells 3.75 10^6/uL (4.0-5.20); Red Cell Distribution Width 13.6 % (11.8-14.3); White Blood Cell 3.2 10^3/uL (4.4-10.8)
[2022-09-11 07:06] LABS: Potassium 4.5 mmol/L (3.5-5.1)
[2022-09-11 07:12] LABS: BUN/Creatinine Ratio 26.8 (10.0-20.0); Calcium 9.8 mg/dL (8.5-10.1)
[2022-09-11 09:00] VITALS: BP 107/54
[2022-09-11] MEDS: APIXABAN 5 MG TAB PO SCH ×2 (09:49→21:52)
[2022-09-11] MEDS: CHOLECALCIFEROL (VITD3) 2,000 UNIT CAP/TAB PO SCH (09:49)
[2022-09-11] MEDS: PREGABALIN CAPSULE 75 MG CAP PO SCH ×2 (09:50→21:51)
[2022-09-11] MEDS: PANTOPRAZOLE 40 MG TAB PO SCH (09:50)
[2022-09-11] MEDS: METOPROLOL SUCCINATE XL 50 MG TAB PO SCH (09:50)
[2022-09-11] MEDS: ZINC SULFATE 220mg CAP or TAB PO SCH (09:50)
[2022-09-11] MEDS: ASCORBIC ACID 500 MG TAB PO SCH ×2 (09:51→21:54)
[2022-09-11 13:00] VITALS: BP 114/58
[2022-09-11] MEDS: ALPRAZolam 0.5 MG TAB PO SCH ×2 (13:50→21:52)
[2022-09-11 17:00] VITALS: BP 109/54
[2022-09-11] MEDS: cefTRIAXone 1GM/50ML D5W 50 ML IV SCH (21:50)
[2022-09-11] MEDS: AZITHROMYCIN 500MG/ 250ML 250 ML IV SCH (21:59)
[2022-09-11 22:00] VITALS: BP 105/38
[2022-09-12] MEDS: ALBUTEROL SULF 2.5 MG/0.5ML(0.5%) NEB SOLN NEB SCH ×2 (02:03→06:55)
[2022-09-12] MEDS: IPRATROPIUM BROM 0.5 MG/2.5ML INH SOL NEB SCH ×2 (02:03→06:55)
[2022-09-12 05:00] VITALS: BP 106/50
[2022-09-12] MEDS: ALPRAZolam 0.5 MG TAB PO SCH ×3 (06:00→21:16)
[2022-09-12] MEDS: methylPREDNISolone SOD SUCC 125 MG/2 ML VL IV SCH ×3 (06:31→21:17)
[2022-09-12 09:00] VITALS: BP 103/50
[2022-09-12] MEDS: PREGABALIN CAPSULE 75 MG CAP PO SCH ×2 (09:56→21:28)
[2022-09-12] MEDS: CHOLECALCIFEROL (VITD3) 2,000 UNIT CAP/TAB PO SCH (09:56)
[2022-09-12] MEDS: APIXABAN 5 MG TAB PO SCH ×2 (09:57→21:17)
[2022-09-12] MEDS: ASCORBIC ACID 500 MG TAB PO SCH ×2 (09:57→21:17)
[2022-09-12] MEDS: PANTOPRAZOLE 40 MG TAB PO SCH (09:57)
[2022-09-12] MEDS: ZINC SULFATE 220mg CAP or TAB PO SCH (09:57)
[2022-09-12] MEDS: METOPROLOL SUCCINATE XL 50 MG TAB PO SCH (10:00)
[2022-09-12 13:00] VITALS: BP 100/47
[2022-09-12 16:50] VITALS: BP 95/49
[2022-09-12] MEDS: cefTRIAXone 1GM/50ML D5W 50 ML IV SCH (21:15)
[2022-09-12] MEDS: AZITHROMYCIN 500MG/ 250ML 250 ML IV SCH (21:16)
[2022-09-12] MEDS: ALBUTEROL SULF HFA 90MCG INH 200DOSE IN PRN (21:39)
[2022-09-12] MEDS: BUDESONIDE (INHALATION) 180 MCG IH IN SCH (21:39)
[2022-09-12 22:00] VITALS: BP 115/57
[2022-09-13 03:00] VITALS: BP 115/57
[2022-09-13 05:00] VITALS: BP 106/54
[2022-09-13] MEDS: ALPRAZolam 0.5 MG TAB PO SCH ×3 (06:00→21:34)
[2022-09-13] MEDS: methylPREDNISolone SOD SUCC 125 MG/2 ML VL IV SCH ×3 (06:09→21:34)
[2022-09-13 09:00] VITALS: BP 118/53
[2022-09-13] MEDS: APIXABAN 5 MG TAB PO SCH ×2 (09:52→21:34)
[2022-09-13] MEDS: ASCORBIC ACID 500 MG TAB PO SCH ×2 (09:52→21:34)
[2022-09-13] MEDS: CHOLECALCIFEROL (VITD3) 2,000 UNIT CAP/TAB PO SCH (09:53)
[2022-09-13] MEDS: PANTOPRAZOLE 40 MG TAB PO SCH (09:53)
[2022-09-13] MEDS: PREGABALIN CAPSULE 75 MG CAP PO SCH ×2 (09:53→21:34)
[2022-09-13] MEDS: ZINC SULFATE 220mg CAP or TAB PO SCH (09:53)
[2022-09-13] MEDS: METOPROLOL SUCCINATE XL 50 MG TAB PO SCH (09:54)
[2022-09-13] MEDS: ALBUTEROL SULF HFA 90MCG INH 200DOSE IN PRN ×2 (10:15→19:00)
[2022-09-13] MEDS: BUDESONIDE (INHALATION) 180 MCG IH IN SCH ×2 (10:16→19:01)
[2022-09-13 13:00] VITALS: BP 107/58
[2022-09-13 17:00] VITALS: BP 110/57
[2022-09-13] MEDS: cefTRIAXone 1GM/50ML D5W 50 ML IV SCH (21:35)
[2022-09-13] MEDS: AZITHROMYCIN 500MG/ 250ML 250 ML IV SCH (21:35)
[2022-09-13 22:00] VITALS: BP 140/69
[2022-09-14 05:00] VITALS: BP 136/45
[2022-09-14] MEDS: ALPRAZolam 0.5 MG TAB PO SCH ×3 (06:00→21:19)
[2022-09-14] MEDS: methylPREDNISolone SOD SUCC 125 MG/2 ML VL IV SCH ×3 (06:05→21:21)
[2022-09-14] MEDS: BUDESONIDE (INHALATION) 180 MCG IH IN SCH ×2 (07:07→19:12)
[2022-09-14] MEDS: ALBUTEROL SULF HFA 90MCG INH 200DOSE IN PRN ×4 (07:07→22:10)
[2022-09-14 09:38] VITALS: BP 136/45
[2022-09-14] MEDS: CHOLECALCIFEROL (VITD3) 2,000 UNIT CAP/TAB PO SCH (10:00)
[2022-09-14] MEDS: METOPROLOL SUCCINATE XL 50 MG TAB PO SCH (10:00)
[2022-09-14] MEDS: PREGABALIN CAPSULE 75 MG CAP PO SCH ×3 (10:00→21:19)
[2022-09-14] MEDS: PANTOPRAZOLE 40 MG TAB PO SCH (10:54)
[2022-09-14] MEDS: ASCORBIC ACID 500 MG TAB PO SCH ×2 (10:59→21:19)
[2022-09-14] MEDS: APIXABAN 5 MG TAB PO SCH ×2 (10:59→21:19)
[2022-09-14] MEDS: ZINC SULFATE 220mg CAP or TAB PO SCH (11:00)
[2022-09-14 13:00] VITALS: BP 120/55
[2022-09-14 17:00] VITALS: BP 127/62
[2022-09-14] MEDS: cefTRIAXone 1GM/50ML D5W 50 ML IV SCH (21:19)
[2022-09-14] MEDS: AZITHROMYCIN 500MG/ 250ML 250 ML IV SCH (21:21)
[2022-09-14 22:00] VITALS: BP 124/56
[2022-09-15 05:00] VITALS: BP 127/66
[2022-09-15] MEDS: ALPRAZolam 0.5 MG TAB PO SCH ×2 (06:00→15:11)
[2022-09-15] MEDS: methylPREDNISolone SOD SUCC 125 MG/2 ML VL IV SCH ×2 (06:23→15:11)
[2022-09-15] MEDS: BUDESONIDE (INHALATION) 180 MCG IH IN SCH ×2 (08:18→17:49)
[2022-09-15] MEDS: ALBUTEROL SULF HFA 90MCG INH 200DOSE IN PRN ×2 (08:18→13:18)
[2022-09-15 09:00] VITALS: BP 121/50
[2022-09-15] MEDS: PREGABALIN CAPSULE 75 MG CAP PO SCH (09:45)
[2022-09-15] MEDS: ZINC SULFATE 220mg CAP or TAB PO SCH (09:45)
[2022-09-15] MEDS: APIXABAN 5 MG TAB PO SCH (09:45)
[2022-09-15] MEDS: CHOLECALCIFEROL (VITD3) 2,000 UNIT CAP/TAB PO SCH (09:46)
[2022-09-15] MEDS: ASCORBIC ACID 500 MG TAB PO SCH (09:46)
[2022-09-15] MEDS: METOPROLOL SUCCINATE XL 50 MG TAB PO SCH (09:54)
[2022-09-15 13:00] VITALS: BP 119/56
[2022-09-15 14:42] VITALS: BP 121/50
[2022-09-15 17:00] VITALS: BP 107/48
[2022-09-15] MEDS ORDERED: ALBUTEROL SULF HFA 90MCG INH 200DOSE IN SCH (18:00)
== END 2022-09-15 18:37 | DRG 177 ==
LOC: ER 19:40 → EDBD 19:40 → TELE 09-10 01:35 → TELE-WESTW 09-10 18:08
PROVIDERS: ADMIT Nurse Practitioner; ATTEND Family Medicine
DX: U07.1 COVID-19 (principal); J12.82 Pneumonia due to coronavirus disease 2019; J96.01 Acute respiratory failure with hypoxia; J44.1 Chronic obstructive pulmonary disease with (acute) exacerbation; D68.9 Coagulation defect, unspecified; J44.0 Chronic obstructive pulmonary disease with (acute) lower respiratory infection; E78.00 Pure hypercholesterolemia, unspecified; F17.210 Nicotine dependence, cigarettes, uncomplicated; I10 Essential (primary) hypertension; I48.91 Unspecified atrial fibrillation; S00.93XA Contusion of unspecified part of head, initial encounter; W01.0XXA Fall on same level from slipping, tripping and stumbling without subsequent striking against object, initial encounter; Y93.01 Activity, walking, marching and hiking; E11.9 Type 2 diabetes mellitus without complications; F41.9 Anxiety disorder, unspecified; Z79.01 Long term (current) use of anticoagulants
CPT/HCPCS: 36415; 70450; 71045; 72125; 80048; 80053; 81001; 84484; 85025; 87426; 94640; 96365; 97163; G0378; J0696

== ENCOUNTER 2024-02-22 11:28 | Inpatient (IN) | payer MEDICARE, MEDICAID ==
[~2024-02-22] VITALS: Ht 157.5 cm; Wt 58.9 kg
[~2024-02-22 11:28] MED LIST changes: +BUPR150T18 PO; +CETI-120 PO; +DOCU-94 PO; -FLUT1AER3; +FLUT1AER3 INH; +IBAN1TAB2 PO; -IPRAAER6; +IPRAAER6 INH; +PANT40TA2 PO; +PER60TP TOP; +ROSU20TA14 PO; +SUCR1TAB PO; +TRIO1TP TOP
[2024-02-22] MEDS ORDERED: LEVALBUTEROL HCL 1.25 MG/3 ML NEB NEB SCH (12:00)
[2024-02-22 12:26] LABS: Basophils # (auto) 0.1 10 ^3/uL (0-0.2); Hemoglobin 13.2 g/dL (12.2-16.2); Lymphocytes # (auto) 2.2 10 ^3/uL (0.4-5.4); Monocytes # (auto) 0.6 10 ^3/uL (0-1.3)
[2024-02-22 12:29] LABS: Basophils % (auto) 0.6 % (0.0-2.0); Eosinophils # (auto) 0.7 10 ^3/uL (0-0.8); Eosinophils % (auto) 7.2 % (0.0-7.0); Hematocrit 40.3 % (36.0-46.0); Lymphocytes % (auto) 22.2 % (10.0-50.0); Mean Corpuscular Hemoglobin 28.2 pg (28.0-32.0); Mean Corpuscular Hgb Conc. 32.7 g/dL (32.0-36.0); Mean Corpuscular Volume 86.2 fL (80.0-100.0); Monocytes % (auto) 6.2 % (0.0-12.0); Neutrophils # (auto) 6.4 10 ^3/uL (1.6-8.6); Neutrophils % (auto) 63.8 % (37.0-80.0); Nucleated Red Blood Cells % 0.1 %; Platelet Count (auto) 480 10^3/uL (140-450); Red Blood Cells 4.67 10^6/uL (4.0-5.20); White Blood Cell 10.1 10^3/uL (4.4-10.8)
[2024-02-22 12:36] LABS: Alanine Aminotransferase 11 U/L (7-40); Albumin 4.4 g/dL (3.2-4.8); Alkaline Phosphatase 97 U/L (46-116); Anion Gap 4 (5-15); Aspartate Aminotransferase 17 U/L (13-40); BUN/Creatinine Ratio 10.8 (10.0-20.0); Blood Urea Nitrogen 7 mg/dL (9-23); Calcium 9.5 mg/dL (8.7-10.4); Carbon Dioxide 29 mmol/L (20-31); Chloride 107 mmol/L (98-107); Glucose 89 mg/dL (74-106); Potassium 4.2 mmol/L (3.5-5.1); Sodium 140 mmol/L (136-145)
[2024-02-22 12:37] LABS: Bilirubin, Total 0.2 mg/dL (0.2-1.0); Total Protein 7.2 g/dL (5.7-8.2)
[2024-02-22] MEDS: IPRATROPIUM BROM 0.5 MG/2.5ML INH SOL NEB ONE (13:36)
[2024-02-22] MEDS: LEVALBUTEROL HCL 1.25 MG/3 ML NEB NEB ONE (13:37)
[2024-02-22] MEDS: methylPREDNISolone SOD SUCC 125 MG/2 ML VL IV ONE (14:30)
[2024-02-22] MEDS: AZITHROMYCIN 500MG/ 250ML 250 ML IV ONE (14:31)
[2024-02-22 14:36] VITALS: PULSE 89; RESP 16; O2SAT 100
[2024-02-22] MEDS ORDERED: PREG100C66 PO (18:42)
[2024-02-22] MEDS ORDERED: DOCUSATE SOD 100 MG CAP PO PRN (18:45)
[2024-02-22 19:44] VITALS: PULSE 97; RESP 16; O2SAT 96
[2024-02-22] MEDS: IPRATROPIUM BROM 0.5 MG/2.5ML INH SOL NEB PRN (19:44)
[2024-02-22] MEDS: ALBUTEROL SULF 2.5 MG/0.5ML(0.5%) NEB SOLN NEB PRN (19:44)
[2024-02-22 19:52] VITALS: PULSE 80; RESP 20; O2SAT 99
[2024-02-22 20:30] VITALS: BP 120/57; PULSE 97; RESP 20; TEMP 97.9; O2SAT 96
[2024-02-22] MEDS: SODIUM CHLOR 0.9% PF (SALINE LOCK) 10ML VIAL/SYR IV SCH (22:00)
[2024-02-22] MEDS: PREGABALIN CAPSULE 75 MG CAP PO SCH (22:49)
[2024-02-22] MEDS: methylPREDNISolone SOD SUCC 40 MG/ML VL IV SCH (22:49)
[2024-02-22] MEDS: PREGABALIN 25 MG CAP PO SCH (22:50)
[2024-02-22 23:00] VITALS: PULSE 90; RESP 18; O2SAT 98
[2024-02-23] VITALS (18 sets, daily range): BP systolic 98–130; BP diastolic 46–66; PULSE 88–118; RESP 14–22; TEMP 97.3–98.2; O2SAT 93–100
[2024-02-23] MEDS ORDERED: IPRATROPIUM-ALBUTEROL 20mCg/100mCg INHALER IN SCH
[2024-02-23] MEDS: IPRATROPIUM BROM 0.5 MG/2.5ML INH SOL NEB SCH ×2 (00:12→13:34)
[2024-02-23] MEDS: ALBUTEROL SULF 2.5 MG/0.5ML(0.5%) NEB SOLN NEB SCH ×2 (00:12→13:33)
[2024-02-23] MEDS ORDERED: ALPR0.255 PO (01:10)
[2024-02-23 07:13] LABS: Basophils # (auto) 0 10 ^3/uL (0-0.2); Basophils % (auto) 0.4 % (0.0-2.0); Eosinophils # (auto) 0 10 ^3/uL (0-0.8); Hematocrit 39.5 % (36.0-46.0); Hemoglobin 12.5 g/dL (12.2-16.2); Lymphocytes # (auto) 1.2 10 ^3/uL (0.4-5.4); Lymphocytes % (auto) 15.6 % (10.0-50.0); Mean Corpuscular Hemoglobin 27.6 pg (28.0-32.0); Mean Corpuscular Hgb Conc. 31.5 g/dL (32.0-36.0); Mean Corpuscular Volume 87.6 fL (80.0-100.0); Monocytes # (auto) 0.1 10 ^3/uL (0-1.3); Monocytes % (auto) 1.1 % (0.0-12.0); Neutrophils # (auto) 6.3 10 ^3/uL (1.6-8.6); Neutrophils % (auto) 82.9 % (37.0-80.0); Nucleated Red Blood Cells % 0.1 %; Platelet Count (auto) 468 10^3/uL (140-450); Red Blood Cells 4.51 10^6/uL (4.0-5.20); White Blood Cell 7.6 10^3/uL (4.4-10.8)
[2024-02-23 07:48] LABS: Alanine Aminotransferase 10 U/L (7-40); Alkaline Phosphatase 85 U/L (46-116); Anion Gap 8 (5-15); Aspartate Aminotransferase 15 U/L (13-40); Bilirubin, Total 0.2 mg/dL (0.2-1.0); Blood Urea Nitrogen 11 mg/dL (9-23); Carbon Dioxide 26 mmol/L (20-31); Chloride 105 mmol/L (98-107); Glucose 130 mg/dL (74-106); Potassium 4.7 mmol/L (3.5-5.1); Sodium 139 mmol/L (136-145); Total Protein 6.5 g/dL (5.7-8.2)
[2024-02-23 07:49] LABS: Calcium 9.7 mg/dL (8.7-10.4)
[2024-02-23 10:57] LABS: COVID19 ANTIGEN SOFIA FIA NEGATIVE (NEGATIVE)
[2024-02-23] MEDS: ACETAMINOPHEN 325 MG TAB PO PRN (12:31)
[2024-02-23] MEDS: cefTRIAXone 1GM/50ML D5W 50 ML IV ONE (12:32)
[2024-02-23 13:17] LABS: Urine Bacteria FEW /hpf (None Seen); Urine Blood TRACE /uL (Negative); Urine Budding Yeast OCCASIONAL /hpf (None Seen); Urine Clarity Turbid (Clear); Urine Color Light-Yellow (Yellow); Urine Protein, UAD Negative (Negative); Urine Specific Gravity 1.016 (1.001-1.035); Urine Urobilinogen Normal (Negative); Urine WBC 284 /hpf (0 - 5); Urine pH 5.5 (5.0-9.0)
[2024-02-23] MEDS: AZITHROMYCIN 500MG/ 250ML 250 ML IV ONE (13:47)
[2024-02-23] MEDS: methylPREDNISolone SOD SUCC 40 MG/ML VL IV SCH (14:41)
[2024-02-23] MEDS: LORazepam 2MG/ML-1ML VIAL IV PRN (14:47)
[2024-02-24] VITALS (18 sets, daily range): BP systolic 95–113; BP diastolic 43–65; PULSE 77–110; RESP 14–20; TEMP 97.6–98; O2SAT 91–100
[2024-02-24 08:10] LABS: Basophils # (auto) 0 10 ^3/uL (0-0.2); Eosinophils # (auto) 0 10 ^3/uL (0-0.8); Hemoglobin 12.3 g/dL (12.2-16.2); Lymphocytes # (auto) 1.5 10 ^3/uL (0.4-5.4); Red Cell Distribution Width 14.5 % (11.8-14.3)
[2024-02-24 08:12] LABS: Basophils % (auto) 0.2 % (0.0-2.0); Hematocrit 37.1 % (36.0-46.0); Mean Corpuscular Hemoglobin 28.2 pg (28.0-32.0); Mean Corpuscular Hgb Conc. 33.1 g/dL (32.0-36.0); Mean Corpuscular Volume 85.3 fL (80.0-100.0); Monocytes # (auto) 0.3 10 ^3/uL (0-1.3); Monocytes % (auto) 3.1 % (0.0-12.0); Neutrophils # (auto) 8.8 10 ^3/uL (1.6-8.6); Neutrophils % (auto) 82.7 % (37.0-80.0); Nucleated Red Blood Cells % 0.1 %; Platelet Count (auto) 537 10^3/uL (140-450); Red Blood Cells 4.35 10^6/uL (4.0-5.20); White Blood Cell 10.6 10^3/uL (4.4-10.8)
[2024-02-24 08:24] LABS: Chloride 103 mmol/L (98-107); Potassium 4.6 mmol/L (3.5-5.1); Sodium 141 mmol/L (136-145)
[2024-02-24 08:25] LABS: Anion Gap 5 (5-15); Calcium 9.7 mg/dL (8.7-10.4); Carbon Dioxide 33 mmol/L (20-31)
[2024-02-24 08:30] LABS: Blood Urea Nitrogen 13 mg/dL (9-23); Glucose 119 mg/dL (74-106)
[2024-02-24 08:40] LABS: Rapid Influenza A Negative (Negative); Rapid Influenza B Negative (Negative)
[2024-02-24] MEDS: cefTRIAXone 1GM/50ML D5W 50 ML IV SCH (09:22)
[2024-02-24] MEDS: AZITHROMYCIN 500MG/ 250ML 250 ML IV SCH (11:56)
[2024-02-24] MEDS: methylPREDNISolone SOD SUCC 40 MG/ML VL IV SCH (21:46)
[2024-02-24] MEDS: MUPIROCIN 2% OINT 15gm or 22gm FOR MRSA NARES EACHNOSTRI SCH (21:48)
[2024-02-25] VITALS (20 sets, daily range): BP systolic 99–122; BP diastolic 49–63; PULSE 75–117; RESP 16–20; TEMP 97.7–98.1; O2SAT 93–99
[2024-02-25] MEDS: guaiFENesin 200 MG/10 ML UD PO PRN (21:53)
[2024-02-26] VITALS (17 sets, daily range): BP systolic 104–118; BP diastolic 50–69; PULSE 82–113; RESP 16–20; TEMP 98.1–98.2; O2SAT 94–98
[2024-02-26 07:18] LABS: Basophils # (auto) 0 10 ^3/uL (0-0.2); Basophils % (auto) 0.2 % (0.0-2.0); Eosinophils # (auto) 0 10 ^3/uL (0-0.8); Hematocrit 39.1 % (36.0-46.0); Hemoglobin 12.5 g/dL (12.2-16.2); Lymphocytes # (auto) 1.4 10 ^3/uL (0.4-5.4); Lymphocytes % (auto) 13.5 % (10.0-50.0); Mean Corpuscular Hemoglobin 27.3 pg (28.0-32.0); Mean Corpuscular Volume 85.2 fL (80.0-100.0); Monocytes # (auto) 0.3 10 ^3/uL (0-1.3); Monocytes % (auto) 2.6 % (0.0-12.0); Neutrophils # (auto) 8.6 10 ^3/uL (1.6-8.6); Neutrophils % (auto) 83.7 % (37.0-80.0); Nucleated Red Blood Cells % 0.1 %; Platelet Count (auto) 497 10^3/uL (140-450); Red Blood Cells 4.59 10^6/uL (4.0-5.20); Red Cell Distribution Width 14.6 % (11.8-14.3); White Blood Cell 10.3 10^3/uL (4.4-10.8)
[2024-02-26 07:44] LABS: Alanine Aminotransferase 10 U/L (7-40); Albumin 3.9 g/dL (3.2-4.8); Alkaline Phosphatase 63 U/L (46-116); Anion Gap 5 (5-15); Aspartate Aminotransferase 13 U/L (13-40); BUN/Creatinine Ratio 22.2 (10.0-20.0); Bilirubin, Total 0.2 mg/dL (0.2-1.0); Blood Urea Nitrogen 14 mg/dL (9-23); Calcium 9.4 mg/dL (8.7-10.4); Carbon Dioxide 34 mmol/L (20-31); Chloride 99 mmol/L (98-107); Glucose 116 mg/dL (74-106); Sodium 138 mmol/L (136-145); Total Protein 6.2 g/dL (5.7-8.2)
[2024-02-26] MEDS: ALPRAZolam 0.25 MG TAB PO PRN (22:21)
[2024-02-27] VITALS (23 sets, daily range): BP systolic 106–124; BP diastolic 45–71; PULSE 78–121; RESP 16–20; TEMP 97.4–98.5; O2SAT 93–100
[2024-02-27] MEDS: ONDANSETRON HCL 4 MG/2 ML VIAL IV PRN (13:25)
[2024-02-27] MEDS ORDERED: ONDANSETRON HCL 4 MG/2 ML VIAL IV PRN (13:45)
[2024-02-28] VITALS (20 sets, daily range): BP systolic 104–111; BP diastolic 52–77; PULSE 78–118; RESP 16–24; TEMP 97.7–98.3; O2SAT 93–100
[2024-02-28] MEDS: DOXYCYCLINE 100MG/250ML 250 ML IV ONE (10:30)
[2024-02-28] MEDS: DOXYCYCLINE 100MG/250ML 250 ML IV SCH (10:30)
[2024-02-28] MEDS: BUDESONIDE (INHALATION) 0.5 MG/2 ML NEB NEB ONE (10:30)
[2024-02-28] MEDS: BUDESONIDE (INHALATION) 0.5 MG/2 ML NEB ONE (10:57)
[2024-02-28] MEDS: BUDESONIDE (INHALATION) 0.5 MG/2 ML NEB NEB SCH (18:14)
[2024-02-29] VITALS (15 sets, daily range): BP systolic 95–131; BP diastolic 43–80; PULSE 73–105; RESP 16–20; TEMP 97.8–98; O2SAT 90–100
[2024-02-29] MEDS: FLUCONAZOLE 200MG/100ML 100 ML IV SCH (12:46)
[2024-03-01] VITALS (16 sets, daily range): BP systolic 105–133; BP diastolic 34–62; PULSE 63–102; RESP 16–22; TEMP 97.4–98.9; O2SAT 91–99
[2024-03-01] MEDS: methylPREDNISolone SOD SUCC 40 MG/ML VL IV SCH (11:19)
[2024-03-02] VITALS (14 sets, daily range): BP systolic 99–161; BP diastolic 18–73; PULSE 52–100; RESP 16–20; TEMP 97.6–98.6; O2SAT 90–99
[2024-03-02] MEDS ORDERED: FLUC200T50 PO (11:35)
[2024-03-02] MEDS ORDERED: PRED20TA2 PO (11:35)
[2024-03-02] MEDS ORDERED: DOXY-286 PO (11:35)
== END 2024-03-02 16:25 | disposition home or self-care (01) | DRG 177 ==
LOC: ER 11:28 → OVERFLOW 18:33 → CENTRAL 22:36
PROVIDERS: ADMIT Nurse Practitioner Family; ATTEND Internal Medicine
DX: J15.69 Pneumonia due to other Gram-negative bacteria (principal); J96.21 Acute and chronic respiratory failure with hypoxia; J44.1 Chronic obstructive pulmonary disease with (acute) exacerbation; J44.0 Chronic obstructive pulmonary disease with (acute) lower respiratory infection; J15.9 Unspecified bacterial pneumonia; Z20.822 Contact with and (suspected) exposure to COVID-19; F41.9 Anxiety disorder, unspecified; I10 Essential (primary) hypertension; E11.9 Type 2 diabetes mellitus without complications; I48.91 Unspecified atrial fibrillation; E78.5 Hyperlipidemia, unspecified; Z79.01 Long term (current) use of anticoagulants; Z87.891 Personal history of nicotine dependence; Z85.038 Personal history of other malignant neoplasm of large intestine; Z86.14 Personal history of Methicillin resistant Staphylococcus aureus infection
CPT/HCPCS: 36415; 71045; 80048; 80053; 81001; 83605; 83880; 84484; 85025; 87040; 87070; 87081; 87205; 87426; 87804; 93005; 94640; G0378; J1450; J3490

== ENCOUNTER 2024-03-19 09:00 | Inpatient (IN) | payer MEDICARE, MEDICAID ==
[2024-03-19] VITALS (9 sets, daily range): BP systolic 123; BP diastolic 46; PULSE 104–120; RESP 11–25; TEMP 98.5; O2SAT 94–99
[~2024-03-19] VITALS: Ht 157.5 cm; Wt 55.6 kg
[~2024-03-19 09:00] MED LIST changes: -ALBU108A5; +ALPR0.255 PO; -BUSP15TA60; +DOXY-286 PO; +FLUC200T50 PO; +PRED20TA2 PO; +PREG100C66 PO; -PSEU1SYP6
--- NOTE | 2024-03-19 09:18 | ECG ---
[facility] Test Date: 2024-03-19 Test Time: 09:12:47 Pat Name: KANWAL OLGUIN Department: ED Room: 0246T Gender: F [employer]er: : 1955 Requested By: ALTAGRACIA STEVNES Order Number: [id number] Reading MD: Baltazar Rodriguez Measurements Intervals [place] Rate: 124 P: 86 SC: 148 QRS: 138 QRSD: 77 T: 67 QT: 296 QTc: 425 Interpretive Statements Sinus tachycardia LAE, consider biatrial enlargement Right axis deviation Electronically Signed On 03-24-2024 16:56:57 PST by Baltazar Rodriguez Please click the below link to view image of tracing.
--- NOTE | 2024-03-19 09:37 | ED.PDOC ---
History of Present Illness HPI Comments 69F BIBA w/ prior Hx of COPD and 2L of NC at home which may be associated to the c/c of SOB. Pt reports on having SOB for the past 3-4 days, associated w/ light wheezing and cough. Pt states that she has pneumonia 2 weeks ago and finished antibiotics. Pt was picked up from home by EMS and was given 2 [address] en rout to ED. Pt notes on having Cp with cough. Pt is currently in ER bed on 4L NC. PMHx of AFIB, Cancer, DM, High Lipids and HTN. SHx of , Neck Surgery and Tonsillectomy. Social Hx of quit tobacco use, alcohol and marijuana use, 4 years ago. Denies chills, fever, N/V/D, or other associated symptoms, modifiers, or recent injuries at this time. Chief Complaint: Shortness of Breath Time Seen by MD: 09:15 Primary Care Provider: unknown Reviewed Notes: Nurses Notes, Occupational Work Experience Teacher Notes, Medications, Allergies Allergies: Coded Allergies: NO KNOWN ALLERGIES (Unverified , 03/30/22) Home Meds Active Scripts Prednisone (Prednisone) 20 Mg Tab, 20 MG PO QAM for 7 Days, #14 MG Prov:ZOYA MERAZ MD 03/02/24 Fluconazole (Fluconazole) 200 Mg Tab, 200 MG PO DAILY for 7 Days, #7 TAB Prov:ZOYA MERAZ MD 03/02/24 Doxycycline Hyclate (DOXYCYCLINE HYCLATE) 100 Mg Tab, 100 MG PO BID for 7 Days, #14 TAB Prov:ZOYA MERAZ MD 03/02/24 Reported Medications Permethrin (Elimite) 5 % Cre, 1 APPLIC TOP HS for 30 Days, #60 02/24/24 Bupropion Hcl (Bupropion Hcl Xl) 150 Mg Tab, 1 TAB PO QAM for 90 Days, #90 02/24/24 Sucralfate (Sucralfate) 1 Gm Tab, 1 TAB PO TID for 30 Days, #90 02/24/24 Pantoprazole Sodium Sesquihydr (Protonix) 40 Mg Tab, 1 TAB PO DAILY for 90 Days, #90 02/24/24 Docusate Sodium (Colace) 100 Mg Cap, 1 CAP PO DAILY PRN for 100 Days, #100 02/24/24 Rosuvastatin Calcium (Crestor) 20 Mg Tab, 1 TAB PO DAILY for 90 Days, #90 02/24/24 Ibandronate Sodium (IBANDRONATE SODIUM) 150 Mg Tab, 1 TAB PO MONTHLY for 84 Days, #3 02/24/24 Cetirizine HCl (Cetirizine Hydrochloride) 10 Mg Tab, 1 TAB PO DAILY for 90 Days, #90 02/24/24 Triamcinolone Acetonide (Kenalog) 1 Applic Ap, 1 APPLIC TOP BID for 30 Days, #454 02/24/24 Alprazolam (Alprazolam) 0.25 Mg Tab, 1 TAB PO TID 02/23/24 Pregabalin (Pregabalin) 100 Mg Cap, 1 CAP PO BID 02/22/24 Sbjroxdlhfd-Nnnaisbkqfvk-Smoqt (Trelegy Ellipta 100-62.5-25 Mcg/INH) 1 Aer Aer, 1 PUFF INH DAILY for 30 Days, #60 06/30/19 Ipratropium-Albuterol (COMBIVENT RESPIMAT) Respimat Aer, 1 PUFF INH Q6HR for 30 Days, #4 06/30/19 Albuterol Sulfate (VENTOLIN MDI) 90 Mcg Ih 06/30/19 Information Source: Patient, Emergency Med Personnel, [facility] Medical Record Mode of Arrival: EMS Severity: Moderate Timing: Days Duration: Since onset, Days Prehospital treatment: Breathing Tx Past Medical History PAST MEDICAL HISTORY: AFIB, Cancer, COPD, DM, High Lipids, HTN Past Medical History (Other): 2L NC at home Surgical History: , Tonsillectomy Surgical History (Other): Neck Surgery RENAL DIALYSIS RN History: No Pertinent RENAL DIALYSIS RN History Family History Family History: Family hx of Cancer, Family hx of heart cammie Social History Smoker: Quit Greater Than 1 Year, Cigarettes Alcohol: Sober Drugs: Denies Drug Use Lives In: Home Constitutional: denies: chills, diaphoresis, fatigue, fever, malaise, sweats, weakness, others EENTM: denies: blurred vision, double vision, ear bleeding, ear discharge, ear drainage, ear pain, ear ringing, eye pain, eye redness, hearing loss, mouth pain, mouth swelling, nasal discharge, nose bleeding, nose congestion, nose pain, photophobia, tearing, throat pain, throat swelling, voice changes, others Respiratory: reports: cough, SOB at rest, wheezing; denies: hemoptysis, orthopnea, shortness of breath, SOB with excertion, stridor, others Cardiovascular: reports: chest pain; denies: dizzy spells, diaphoresis, Dyspnea on exertion, edema, irregular heart beat, left arm pain, lightheadedness, palpitations, PND, syncope, others Gastrointestinal: denies: abdomen distended, abdominal pain, blood streaked bowels, constipated, diarrhea, dysphagia, difficulty swallowing, hematemesis, me todd, nausea, poor appetite, poor fluid intake, rectal bleeding, rectal pain, vomiting, others Genitourinary: denies: abnormal vagina bleeding, burning, dyspareunia, dysuria, flank pain, frequency, hematuria, incontinence, pain, , vagina discharge, urgency, others Neurological: denies: dizziness, fainting, headache, left sided numbness, left sided weakness, numbness, paresthesia, pre-existing deficit, right sided numbness, right sided weakness, seizure, speech problems, tingling, tremors, weakness, others Musculoskeletal: denies: back pain, gout, joint pain, joint swelling, muscle pain, muscle stiffness, neck pain, others Integumetry: denies: bruises, change in color, change in hair/nails, dryness, laceration, lesions, lumps, rash, wounds, others Allergic/Immunocompromised: denies: Difficulty Healing, Frequent Infections, Hives, Itching, others Hematologic/Lymphatic: denies: anemia, blood clots, easy bleeding, easy bruising, swollen glands, others Endocrine: denies: excessive hunger, excessive sweating, excessive thirst, excessive urination, flushing, intolerance to cold, intolerance to heat, unexplained weight gain, unexplained weight loss, others Psychiatric: denies: anxiety, bipolar disorder, depression, hopeless, panic disorder, schizophrenia, sleepless, suicidal, others All Other Systems: Reviewed and Negative Physical Exam General Appearance: Moderate Distress HEENT: Normal ENT Inspection, Pharynx Normal, TMs Normal Neck: Full Range of Motion, Non-Tender, Normal, Normal Inspection Respiratory: Accessory Muscle Use, Chest Non-Tender, Decreased Breath Sounds, No Accessory Muscle Use, Respiratory Distress, Wheezing Cardiovascular: No Edema, No JVD, No Murmur, No Gallop, Tachycardia Breast Exam: Deferred Gastrointestinal: No Organomegaly, Non Tender, No Pulsatile Mass, Normal Bowel Sounds, Soft Genitalia: Deferred Pelvic: Deferred Rectal: Deferred Extremities: No calf tenderness, Normal capillary refill, Normal inspection, Normal range of motion, Non-tender, No pedal edema Musculoskeletal : Apperance: Normal Neurologic: Alert, 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 Was a procedure done?: No EKG EKG : Pulse Rate (adult): 124 [place]: RAD Cardiac Rhythm: NSR Block: None Hypertrophy: LAE ST: Nonsp Differential Dx Considerations may include: Pneumonia, COPD exacerbation, acute respiratory failure X-Ray, Labs, Meds, VS Vital Signs Date Time Temp Pulse Resp B/P (MAP) Pulse Ox O2 Delivery O2 Flow Rate FiO2 03/19/24 09:42 24 99 Nasal Cannula* 4 36 03/19/24 09:20 122 03/19/24 09:16 120 18 99 Nasal Cannula* 4 36 03/19/24 09:14 98.5 123 18 105/51 (69) 98 98.5 03/19/24 09:12 124 03/19/24 09:10 98 Nasal Cannula* 4 36 03/19/24 09:06 98.0 113 11 90/49 (63) 99 Lab Test 03/19/24 09:40 03/19/24 09:00 Range/Units Influenza Type A Antigen Negative Negative Influenza Type B Antigen Negative Negative SARS-CoV-2 Antigen (Rapid) Negative NEGATIVE White Blood Count 8.7 4.4-10.8 10^3/uL Red Blood Count 4.46 4.0-5.20 10^6/uL Hemoglobin 12.3 12.2-16.2 g/dL Hematocrit 38.5 36.0-46.0 % Mean Corpuscular Volume 86.2 80.0-100.0 fL Mean Corpuscular Hemoglobin 27.6 L 28.0-32.0 pg Mean Corpuscular Hemoglobin Concent 32.0 32.0-36.0 g/dL Red Cell Distribution Width 16.0 H 11.8-14.3 % Platelet Count 230 140-450 10^3/uL Mean Platelet Volume 7.1 6.9-10.8 fL Neutrophils (%) (Auto) 85.6 H 37.0-80.0 % Lymphocytes (%) (Auto) 8.1 L 10.0-50.0 % Monocytes (%) (Auto) 5.3 0.0-12.0 % Eosinophils (%) (Auto) 0.4 0.0-7.0 % Basophils (%) (Auto) 0.6 0.0-2.0 % Neutrophils # (Auto) 7.5 1.6-8.6 10 ^3/uL Lymphocytes # (Auto) 0.7 0.4-5.4 10 ^3/uL Monocytes # (Auto) 0.5 0-1.3 10 ^3/uL Eosinophils # (Auto) 0 0-0.8 10 ^3/uL Basophils # (Auto) 0.1 0-0.2 10 ^3/uL Nucleated Red Blood Cells 0.1 % Sodium Level 139 136-145 mmol/L Potassium Level 4.1 3.5-5.1 mmol/L Chloride Level 100 98-107 mmol/L Carbon Dioxide Level 33 H 20-31 mmol/L Anion Gap 6 5-15 Blood Urea Nitrogen Pending Creatinine Pending Glomerular Filtration Rate Calc Pending BUN/Creatinine Ratio Pending Serum Glucose Pending Lactic Acid Level Pending Calcium Level Pending B-Type Natriuretic Peptide Pending Current Medications Medications (Trade) Dose Ordered Sig/Shanique Route Start Time Stop Time Status Last Admin Methylprednisolone Sodium Succinate (Solu Medrol) 125 mg ONCE ONCE IV 03/19/24 09:45 03/19/24 09:46 DC 03/19/24 09:50 Ipratropium [place] (Atrovent Medneb) 1 mg ONCE ONCE [facility] 03/19/24 09:45 03/19/24 09:46 DC 03/19/24 09:42 Albuterol (Ventolin Medneb) 20 mg ONCE ONCE [facility] 03/19/24 09:45 03/19/24 09:46 DC 03/19/24 09:42 IV Hep-Lock was established The patient was given Solu-Medrol 125 mg IV push The patient was given a continuous breathing treatment of albuterol and Atrovent The patient's CBC is within normal limits The chemistry panel is within normal limits The influenza a and influenza B are negative The COVID test is negative The chest x-ray shows: IMPRESSION: 1. Bibasilar linear densities likely reflects pulmonary fibrosis. Superimposed pneumonia is difficult to exclude. Patient was being admitted at this time Images Reviewed?: Images reviewed and evaluated by me Time of 1ST Reevaluation: 09:45 Reevaluation 1ST: Unchanged Patient Education/Counseling: Diagnosis, Treatment, Prognosis Family Education/Counseling: No Family Present Departure 1 Departure Time of Disposition: 10:18 Impression: Primary Impression: Acute on chronic hypoxic respiratory failure Additional Impression: COPD exacerbation Disposition: ADMITTED INPATIENT Admit to: Tele Condition: Fair Critical Care Note Critical Care Time?: Yes (35 min-critical care time only) Stability Stability form required: Yes Unstable for transfer: Telemetry monitoring (Telemetry monitoring required), ED Physician Assesment (Clinical assesment) Heart Score Heart Score: Heart Score Response (Comments) Value History Moderate Suspicious 1 EKG Normal 0 Age >65 2 Risk Factors >3 or Hx ASHD 2 Troponin Normal limit 0 Total 5 I personally scribed for ALTAGRACIA STEVENS MD ([email or web address]) on 03/19/24 at 09:37. Electronically submitted by Kirit Castellanos ([email or web address]). ALTAGRACIA STEVENS MD Mar 19, 2024 09:37
[2024-03-19] MEDS: ALBUTEROL SULF 2.5 MG/0.5ML(0.5%) NEB SOLN HHN ONE (09:42)
[2024-03-19] MEDS: IPRATROPIUM BROM 0.5 MG/2.5ML INH SOL HHN ONE (09:42)
[2024-03-19] MEDS: methylPREDNISolone SOD SUCC 125 MG/2 ML VL IV ONE (09:50)
--- NOTE | 2024-03-19 10:01 | [facility] ---
CHEST RADIOGRAPH Indication:sob Technique: Single frontal view of the chest was obtained COMPARISON: XY CHEST PORTABLE on DOS: 02/28/24, XY CHEST PORTABLE on DOS: 02/24/24, XY CHEST PORTABLE on DOS: 02/22/24, XY CHEST XRAY 1 VIEW on DOS: 09/14/22, XY CHEST PORTABLE on DOS: 09/09/22 FINDINGS: Lines and Tubes: None Lungs: Bibasilar linear densities likely reflects pulmonary fibrosis. Superimposed pneumonia is diff icult to exclude. Pleura: No effusion. No pneumothorax. Cardiomediastinal contours: Unremarkable Bones: Unremarkable IMPRESSION: 1. Bibasilar linear densities likely reflects pulmonary fibrosis. Superimposed pneumonia is difficul t to exclude.
[2024-03-19 10:05] LABS: Basophils # (auto) 0.1 10 ^3/uL (0-0.2); Basophils % (auto) 0.6 % (0.0-2.0); Eosinophils # (auto) 0 10 ^3/uL (0-0.8); Eosinophils % (auto) 0.4 % (0.0-7.0); Hematocrit 38.5 % (36.0-46.0); Hemoglobin 12.3 g/dL (12.2-16.2); Lymphocytes # (auto) 0.7 10 ^3/uL (0.4-5.4); Lymphocytes % (auto) 8.1 % (10.0-50.0); Mean Corpuscular Hemoglobin 27.6 pg (28.0-32.0); Mean Corpuscular Volume 86.2 fL (80.0-100.0); Monocytes # (auto) 0.5 10 ^3/uL (0-1.3); Monocytes % (auto) 5.3 % (0.0-12.0); Neutrophils # (auto) 7.5 10 ^3/uL (1.6-8.6); Neutrophils % (auto) 85.6 % (37.0-80.0); Nucleated Red Blood Cells % 0.1 %; Platelet Count (auto) 230 10^3/uL (140-450); Red Blood Cells 4.46 10^6/uL (4.0-5.20); White Blood Cell 8.7 10^3/uL (4.4-10.8)
[2024-03-19 10:09] LABS: COVID19 ANTIGEN SOFIA FIA NEGATIVE (NEGATIVE)
[2024-03-19 10:10] LABS: Rapid Influenza A Negative (Negative); Rapid Influenza B Negative (Negative)
[2024-03-19 10:12] LABS: Chloride 100 mmol/L (98-107); Potassium 4.1 mmol/L (3.5-5.1); Sodium 139 mmol/L (136-145)
[2024-03-19 10:13] LABS: Anion Gap 6 (5-15); Carbon Dioxide 33 mmol/L (20-31)
[2024-03-19 10:14] LABS: Calcium 8.8 mg/dL (8.7-10.4)
[2024-03-19 10:18] LABS: BUN/Creatinine Ratio 26.5 (10.0-20.0); Blood Urea Nitrogen 13 mg/dL (9-23); Glucose 108 mg/dL (74-106)
[2024-03-19] MEDS: cefTRIAXone 1GM/50ML D5W 50 ML IV ONE (10:22)
--- NOTE | 2024-03-19 10:59 | DVHHP2 ---
History of Present Illness Reason for Visit: Shortness of breath History of Present Illness This 69-year-old female with past medical history of COPD on 2 L NC at home presents to the ED via EMS with a chief complaint of shortness of breath. The patient reports progressive shortness of breath for the past four days associated with nonproductive cough and wheezing. Patient states that she was recently exposed with someone at home with upper respiratory infection. The patient also reports that she just finished doxycycline two weeks ago for pneumonia. The patient was also admitted in this hospital about a month ago with COPD exacerbation and possible pneumonia. She did not follow-up with pulmonology as she was advised during discharge. The patient reports despite of breathing treatment and antibiotics continue to have shortness of breath and cough for which prompted her to visit the emergency department. Past medical history of anxiety, AFib, hyperlipidemia, ex-smoker. Past Medical History As stated in HPI Past Surgical History Tonsillectomy Family History Reviewed, non-contributory to the management of this case. Past Social History The patient lives at home, denies smoking, alcohol or illicit drugs abuse. Review of Systems Constitutional: Yes: Malaise; No: Fever, Chills, Sweats, Weakness, Other Eyes: No: Pain, Vision change, Conjunctivae inflammation, Eyelid inflammation, Other, Redness ENT: No: Ear pain, Ear discharge, Nose pain, Nose discharge, Nose congestion, Mouth pain, Mouth swelling, Throat pain, Throat swelling, Other Respiratory: Cough, Shortness of breath, SOB with excertion, Wheezing; No: Dry, Hemoptysis, Pleuritic Pain, Sputum, Wheezing, Other Cardiovascular: No: Chest Pain, Palpitations, Orthopnea, Paroxysmal Noc. Dyspnea, Edema, Lt Headedness, Other Gastrointestinal: No: Nausea, Vomiting, Abdominal Pain, Diarrhea, Constipation, Melena, Hematochezia, Other Genitourinary: No Dysuria, No Frequency, No Incontinence, No Hematuria, No Retention, No Other Skin: No: Rash, Lesions, Jaundice, Bruising, Other Neurological: No: Weakness, Numbness, Incoordination, Change in speech, Confusion, Seizures, Other Allergies: Coded Allergies: NO KNOWN ALLERGIES (Unverified , 03/30/22) Medications Current Medications Medications Dose Ordered Sig/Shanique Route Start Time Stop Time Status Last Admin Dose Admin Albuterol 2.5 mg Q4HPRN PRN NEB 03/19/24 10:45 UNV Albuterol 2.5 mg Q6HR NEB 03/19/24 12:00 UNV Ipratropium [place] 0.5 mg Q4HPRN PRN NEB 03/19/24 10:45 UNV Ipratropium [place] 0.5 mg Q6HR NEB 03/19/24 12:00 UNV Methylprednisolone Sodium Succinate 60 mg BID IV 03/19/24 22:00 UNV Pantoprazole Sodium 40 mg DAILY PO 03/20/24 10:00 UNV Patient Own Medication 1 tab QAM PO 03/20/24 07:00 UNV Patient Own Medication 1 tab DAILY PO 03/20/24 10:00 UNV Exam Vital Signs Vital Signs Date Time Temp Pulse Resp B/P (MAP) Pulse Ox O2 Delivery O2 Flow Rate FiO2 03/19/24 10:51 127 21 123/46 (71) 96 03/19/24 09:42 Nasal Cannula* 4 36 03/19/24 09:14 98.5 98.5 General Appearance: Alert, Oriented X3, Cooperative, mild distress HEENT: Atraumatic, PERRLA, EOMI, Mucous membr. moist/pink Respiratory: Other (Crackles, mild wheezing, dyspnea, shortness of breath on exertion) Cardiovascular: Regular rate, Normal S1, Normal S2 Abdominal: Normal bowel sounds, Soft, No tenderness Extremities: No clubbing, No cyanosis, No edema, Normal pulses Skin: No rashes, No breakdown, No significant lesion Neuro: Normal gait, Normal speech, Strength at 5/5 X4 ext, Normal tone Psych/Mental Status: Mental status NL Labs/Xrays Labs Test 03/19/24 09:40 03/19/24 09:00 Range/Units Influenza Type A Antigen Negative Negative Influenza Type B Antigen Negative Negative SARS-CoV-2 Antigen (Rapid) Negative NEGATIVE White Blood Count 8.7 4.4-10.8 10^3/uL Red Blood Count 4.46 4.0-5.20 10^6/uL Hemoglobin 12.3 12.2-16.2 g/dL Hematocrit 38.5 36.0-46.0 % Mean Corpuscular Volume 86.2 80.0-100.0 fL Mean Corpuscular Hemoglobin 27.6 L 28.0-32.0 pg Mean Corpuscular Hemoglobin Concent 32.0 32.0-36.0 g/dL Red Cell Distribution Width 16.0 H 11.8-14.3 % Platelet Count 230 140-450 10^3/uL Mean Platelet Volume 7.1 6.9-10.8 fL Neutrophils (%) (Auto) 85.6 H 37.0-80.0 % Lymphocytes (%) (Auto) 8.1 L 10.0-50.0 % Monocytes (%) (Auto) 5.3 0.0-12.0 % Eosinophils (%) (Auto) 0.4 0.0-7.0 % Basophils (%) (Auto) 0.6 0.0-2.0 % Neutrophils # (Auto) 7.5 1.6-8.6 10 ^3/uL Lymphocytes # (Auto) 0.7 0.4-5.4 10 ^3/uL Monocytes # (Auto) 0.5 0-1.3 10 ^3/uL Eosinophils # (Auto) 0 0-0.8 10 ^3/uL Basophils # (Auto) 0.1 0-0.2 10 ^3/uL Nucleated Red Blood Cells 0.1 % Sodium Level 139 136-145 mmol/L Potassium Level 4.1 3.5-5.1 mmol/L Chloride Level 100 98-107 mmol/L Carbon Dioxide Level 33 H 20-31 mmol/L Anion Gap 6 5-15 Blood Urea Nitrogen 13 9-23 mg/dL Creatinine 0.49 L 0.550-1.02 mg/dL Glomerular Filtration Rate Calc 101 >90 mL/min BUN/Creatinine Ratio 26.5 H 10.0-20.0 Serum Glucose 108 H 74-106 mg/dL Lactic Acid Level 0.7 0.4-2.0 mmol/L Calcium Level 8.8 8.7-10.4 mg/dL B-Type Natriuretic Peptide 30.10 0-100 pg/mL PROCEDURE(s): CXRP - CHEST PORTABLE REASON: sob ORDER NUMBER(s): [id number], ACCESSION NUMBER(s): [id number] CHEST RADIOGRAPH Indication:sob Technique: Single frontal view of the chest was obtained COMPARISON: XY CHEST PORTABLE on DOS: 02/28/24, XY CHEST PORTABLE on DOS: 02/24/24, XY CHEST PORTABLE on DOS: 02/22/24, XY CHEST XRAY 1 VIEW on DOS: 09/14/22, XY CHEST PORTABLE on DOS: 09/09/22 FINDINGS: Lines and Tubes: None Lungs: Bibasilar linear densities likely reflects pulmonary fibrosis. Superimposed pneumonia is difficult to exclude. Pleura: No effusion. No pneumothorax. Cardiomediastinal contours: Unremarkable Bones: Unremarkable IMPRESSION: 1. Bibasilar linear densities likely reflects pulmonary fibrosis. Superimposed pneumonia is difficult to exclude. Assessment/Plan Assessment/Plan # Acute on chronic respiratory failure # acute COPD exacerbation # rule out pneumonia Admit to telemetry unit Pulmonary consult for evaluation given recent hospitalization within a month Empiric antibiotic cefepime until cultures Blood and sputum culture O2 supplement DuoNeb Steroids # anxiety Bupropion # hyperlipidemia Statins # hx of AFib DVT/PUD prophylaxis Medical plan discussed with patient and RN Plan discussed with: Patient My Orders Orders - FREDERICK HAWKINS Procedure Category Date Status Time Urinalysis LAB 03/19/24 Logged 10:31 Respiratory Culture THUY 03/19/24 Logged W/ Gs 10:31 Albuterol Medneb PHA 03/19/24 Logged (Ventolin Medneb) 10:45 Albuterol Medneb PHA 03/19/24 Logged (Ventolin Medneb) 12:00 Ipratropium Medneb PHA 03/19/24 Logged (Atrovent Medneb) 10:45 Ipratropium Medneb PHA 03/19/24 Logged (Atrovent Medneb) 12:00 Methylprednisolone PHA 03/19/24 Logged Sod Succ (Solu Medrol 22:00 *Consult Dr Angy Cantu CONS 03/19/24 Transmitted 10:31 Pantoprazole Tablet PHA 03/20/24 Logged (Protonix Tablet) 10:00 (Nf) Bupropion Hcl PHA 03/20/24 Logged (Bupropion Hcl Xl) 07:00 (Nf) Rosuvastatin PHA 03/20/24 Logged Calcium (Crestor) 10:00 Date of Service: Mar 19, 2024 Billing Provider: FREDERICK HAWKINS Common Visit Codes: [id number] INP/OBS CARE (HIGH) FREDERICK HAWKINS Mar 19, 2024 10:59
[2024-03-19] MEDS ORDERED: ONDANSETRON HCL 4 MG/2 ML VIAL IV PRN (11:00)
[2024-03-19] MEDS: CEFEPIME 1GM/ 50ML 50 ML IV ONE (12:27)
[2024-03-19 13:07] LABS: Urine Bacteria None Seen /hpf (None Seen)
[2024-03-19 13:16] LABS: Urine Blood TRACE /uL (Negative); Urine Clarity Clear (Clear); Urine Color Yellow (Yellow); Urine Mucus FEW (None Seen); Urine Protein, UAD 1+ (Negative); Urine Specific Gravity 1.024 (1.001-1.035); Urine Urobilinogen Normal (Negative); Urine WBC 8 /hpf (0 - 5)
[2024-03-19] MEDS: IPRATROPIUM BROM 0.5 MG/2.5ML INH SOL NEB SCH (14:53)
[2024-03-19] MEDS: ALBUTEROL SULF 2.5 MG/0.5ML(0.5%) NEB SOLN NEB SCH (14:53)
[2024-03-19] MEDS: ALPRAZolam 0.25 MG TAB PO PRN (19:28)
--- NOTE | 2024-03-19 21:46 | DVHINCON2 ---
Date of service: Mar 19, 2024 Referring Physician Esther Mcneill NP Reason for Consultation Acute hypoxic respiratory failure and COPD exacerbation. History of Present Illness This 69-year-old woman with past medical history of COPD on 2 L NC at home, anxiety, AFib, hyperlipidemia, and hx of nicotine dependence presents to the ED via EMS with a chief complaint of shortness of breath. The patient reports progressive shortness of breath for the past 4 days associated with nonproductive cough and wheezing. Admits to sick contact. She just finished doxycycline course 2 weeks ago for pneumonia. The patient was also admitted in this hospital about a month ago with COPD exacerbation and possible pneumonia. She did not follow-up with pulmonology as advised on discharge. States despite breathing treatment and antibiotics, pt continued to have shortness of breath and cough which prompted this visit. Patient was admitted for further care and pulmonary consultation is requested for evaluation and management d/t these findings. Review of Systems: 14-point review of systems negative unless otherwise noted above. Past Medical History: COPD, on 2 LPM NC at home, anxiety, AFib, hyperlipidemia, and hx of nicotine dependence. Past Surgical History: Tonsillectomy Medications: Reviewed. Allergies: No known drug allergies. Family History: Mom with COPD. Social History: Nonsmoker. No alcohol or illicit drug use. Family History: Chronic obstructive pulmonary disease G8 MOTHER Allergies: Coded Allergies: NO KNOWN ALLERGIES (Unverified , 03/30/22) Home Meds Active Scripts Prednisone (Prednisone) 20 Mg Tab, 20 MG PO QAM for 7 Days, #14 MG Prov:ZOYA MERAZ MD 03/02/24 Fluconazole (Fluconazole) 200 Mg Tab, 200 MG PO DAILY for 7 Days, #7 TAB Prov:ZOYA MERAZ MD 03/02/24 Doxycycline Hyclate (DOXYCYCLINE HYCLATE) 100 Mg Tab, 100 MG PO BID for 7 Days, #14 TAB Prov:ZOYA MERAZ MD 03/02/24 Reported Medications Permethrin (Elimite) 5 % Cre, 1 APPLIC TOP HS for 30 Days, #60 02/24/24 Bupropion Hcl (Bupropion Hcl Xl) 150 Mg Tab, 1 TAB PO QAM for 90 Days, #90 02/24/24 Sucralfate (Sucralfate) 1 Gm Tab, 1 TAB PO TID for 30 Days, #90 02/24/24 Pantoprazole Sodium Sesquihydr (Protonix) 40 Mg Tab, 1 TAB PO DAILY for 90 Days, #90 02/24/24 Docusate Sodium (Colace) 100 Mg Cap, 1 CAP PO DAILY PRN for 100 Days, #100 02/24/24 Rosuvastatin Calcium (Crestor) 20 Mg Tab, 1 TAB PO DAILY for 90 Days, #90 02/24/24 Ibandronate Sodium (IBANDRONATE SODIUM) 150 Mg Tab, 1 TAB PO MONTHLY for 84 Days, #3 02/24/24 Cetirizine HCl (Cetirizine Hydrochloride) 10 Mg Tab, 1 TAB PO DAILY for 90 Days, #90 02/24/24 Triamcinolone Acetonide (Kenalog) 1 Applic Ap, 1 APPLIC TOP BID for 30 Days, #454 02/24/24 Alprazolam (Alprazolam) 0.25 Mg Tab, 1 TAB PO TID for 30 Days, #90 02/23/24 Pregabalin (Pregabalin) 100 Mg Cap, 1 CAP PO BID for 30 Days, #60 02/22/24 Nuhpxgnnfme-Puxtbninknco-Kcdbk (Trelegy Ellipta 100-62.5-25 Mcg/INH) 1 Aer Aer, 1 PUFF INH DAILY for 30 Days, #60 06/30/19 Ipratropium-Albuterol (COMBIVENT RESPIMAT) Respimat Aer, 1 PUFF INH Q6HR for 30 Days, #4 06/30/19 Albuterol Sulfate (VENTOLIN MDI) 90 Mcg Ih 06/30/19 Current Medications Current Medications Medications (Trade) Dose Ordered Sig/Shanique Route PRN Reason Start Time Stop Time Status Last Admin Albuterol (Ventolin Medneb) 2.5 mg Q4HPRN PRN NEB SHORTNESS OF BREATH 03/19/24 10:45 Albuterol (Ventolin Medneb) 2.5 mg Q6HR NEB 03/19/24 12:00 03/19/24 18:39 Ipratropium [place] (Atrovent Medneb) 0.5 mg Q4HPRN PRN NEB SHORTNESS OF BREATH 03/19/24 10:45 Ipratropium [place] (Atrovent Medneb) 0.5 mg Q6HR NEB 03/19/24 12:00 03/19/24 18:39 Methylprednisolone Sodium Succinate (Solu Medrol) 60 mg BID IV 03/19/24 22:00 Pantoprazole Sodium (Protonix Tablet) 40 mg DAILY PO 03/20/24 10:00 Patient Own Medication 1 tab QAM PO 03/20/24 07:00 Atorvastatin Calcium (Lipitor) 80 mg HS PO 03/19/24 22:00 Ondansetron HCl (Zofran) 4 mg Q4HP PRN IV NAUSEA / VOMITING 03/19/24 11:00 Enoxaparin Sodium (Lovenox) 30 mg DAILY SC 03/20/24 10:00 Cefepime HCl 50 ml @ 12.5 mls/hr Q12HR IV 03/19/24 22:00 Alprazolam (Xanax Tablet) 0.25 mg TIDPRN PRN PO ANXIETY 03/19/24 18:30 03/19/24 19:28 Vital Signs Vital Signs Date Time Temp Pulse Resp B/P (MAP) Pulse Ox O2 Delivery O2 Flow Rate FiO2 03/19/24 20:00 104 03/19/24 19:20 25 95 Nasal Cannula* 3 32 03/19/24 19:20 98.0 124/54 (77) 98.0 Physical Exam Gen.: Patient lying in bed in no apparent distress. On supplemental oxygen. Head: Normocephalic, atraumatic. Eyes: EOMI/PERRLA. Ears: Normal hearing. Normal anatomy. Neck/trachea: Trachea midline, supple. Nose: Normal external anatomy. Mouth: Moist mucous membranes. Chest: Decreased air entry bilaterally. No wheezing or rhonchi. Cardiovascular: Positive S1, positive S2. Regular rate and rhythm. Abdomen: Positive bowel sounds in all 4 quadrants. Soft, non-tender, non- distended. : Deferred. Rectal: Deferred. Skin: Warm, dry. Intact. Extremities: 2+ radial pulses bilaterally. No lower extremity edema. Neuro: Awake, alert, oriented x3. No gross motor or sensory deficits. Cranial nerves II through XII intact. Gait not assessed. Labs/Diagnostic Data Labs Test 03/19/24 12:13 03/19/24 09:40 03/19/24 09:00 Range/Units Urine Color Yellow Yellow Urine Clarity Clear Clear Urine pH 6.0 5.0-9.0 Urine Specific [place] 1.024 1.001-1.035 Urine Protein 1+ H Negative Urine Ketones 2+ H Negative Urine Blood Trace H Negative /uL Urine Nitrite Negative Negative Urine Bilirubin Negative Negative Urine Urobilinogen Normal Negative mg/dL Urine Leukocyte Esterase Negative Negative /uL Urine RBC 67 0 - 4 /hpf Urine WBC 8 0 - 5 /hpf Urine Squamous Epithelial Cells None seen <5 /hpf Urine Bacteria None seen None Seen /hpf Urine Mucus Few None Seen Urine Glucose 3+ H Normal mg/dL Influenza Type A Antigen Negative Negative Influenza Type B Antigen Negative Negative SARS-CoV-2 Antigen (Rapid) Negative NEGATIVE White Blood Count 8.7 4.4-10.8 10^3/uL Red Blood Count 4.46 4.0-5.20 10^6/uL Hemoglobin 12.3 12.2-16.2 g/dL Hematocrit 38.5 36.0-46.0 % Mean Corpuscular Volume 86.2 80.0-100.0 fL Mean Corpuscular Hemoglobin 27.6 L 28.0-32.0 pg Mean Corpuscular Hemoglobin Concent 32.0 32.0-36.0 g/dL Red Cell Distribution Width 16.0 H 11.8-14.3 % Platelet Count 230 140-450 10^3/uL Mean Platelet Volume 7.1 6.9-10.8 fL Neutrophils (%) (Auto) 85.6 H 37.0-80.0 % Lymphocytes (%) (Auto) 8.1 L 10.0-50.0 % Monocytes (%) (Auto) 5.3 0.0-12.0 % Eosinophils (%) (Auto) 0.4 0.0-7.0 % Basophils (%) (Auto) 0.6 0.0-2.0 % Neutrophils # (Auto) 7.5 1.6-8.6 10 ^3/uL Lymphocytes # (Auto) 0.7 0.4-5.4 10 ^3/uL Monocytes # (Auto) 0.5 0-1.3 10 ^3/uL Eosinophils # (Auto) 0 0-0.8 10 ^3/uL Basophils # (Auto) 0.1 0-0.2 10 ^3/uL Nucleated Red Blood Cells 0.1 % Sodium Level 139 136-145 mmol/L Potassium Level 4.1 3.5-5.1 mmol/L Chloride Level 100 98-107 mmol/L Carbon Dioxide Level 33 H 20-31 mmol/L Anion Gap 6 5-15 Blood Urea Nitrogen 13 9-23 mg/dL Creatinine 0.49 L 0.550-1.02 mg/dL Glomerular Filtration Rate Calc 101 >90 mL/min BUN/Creatinine Ratio 26.5 H 10.0-20.0 Serum Glucose 108 H 74-106 mg/dL Lactic Acid Level 0.7 0.4-2.0 mmol/L Calcium Level 8.8 8.7-10.4 mg/dL B-Type Natriuretic Peptide 30.10 0-100 pg/mL Assessment Impression: Acute hypoxic respiratory failure AE COPD Pulmonary fibrosis Wheezing Atelectasis Cough Plan: Supplemental oxygen Titrate to keep O2 sats above 92%. Continue bronchodilators. Steroids Continue antibiotics Incentive spirometry Monitor renal function. Monitor electrolytes. Supplement as necessary. Monitor ins and outs. DVT prophylaxis. Prognosis: Guarded given patient's multiple co-morbidities. Rest of plan per hospitalist and other consultants. Thank you Esther Mcneill NP, for allowing me to participate in this patient's care. Further recommendations will depend on the patient's clinical course. Please do not hesitate to contact me if you have any questions or concerns. This medical document was created using an electronic medical record system with [employer] dictation system. Although these documentations are being carefully reviewed, there may still be some phonetic and typographical changes. The errors are purely typographical, due to imperfection on the software program, and do not reflect any compromise in the patient's medical care. Plan discussed with: Patient, Other (RN, [employer]ERK MD [place]) TYSHAWN HANDY MD Mar 19, 2024 21:46
[2024-03-19] MEDS: CEFEPIME 1GM/ 50ML 50 ML IV SCH (21:49)
[2024-03-19] MEDS: PREGABALIN 25 MG CAP PO ONE (21:58)
[2024-03-19] MEDS: methylPREDNISolone SOD SUCC 125 MG/2 ML VL IV SCH (22:15)
[2024-03-19] MEDS: ATORVASTATIN 20 MG TAB PO SCH (22:15)
[2024-03-20] VITALS (12 sets, daily range): BP systolic 115–132; BP diastolic 75–87; PULSE 111–124; RESP 15–28; O2SAT 93–100
[2024-03-20 04:14] LABS: Basophils # (auto) 0 10 ^3/uL (0-0.2); Basophils % (auto) 0.3 % (0.0-2.0); Eosinophils # (auto) 0 10 ^3/uL (0-0.8); Hematocrit 38.6 % (36.0-46.0); Hemoglobin 12.5 g/dL (12.2-16.2); Lymphocytes # (auto) 0.4 10 ^3/uL (0.4-5.4); Mean Corpuscular Hemoglobin 28.2 pg (28.0-32.0); Mean Corpuscular Hgb Conc. 32.3 g/dL (32.0-36.0); Mean Corpuscular Volume 87.1 fL (80.0-100.0); Monocytes # (auto) 0.1 10 ^3/uL (0-1.3); Monocytes % (auto) 1.8 % (0.0-12.0); Neutrophils # (auto) 6.8 10 ^3/uL (1.6-8.6); Neutrophils % (auto) 91.9 % (37.0-80.0); Nucleated Red Blood Cells % 0.1 %; Platelet Count (auto) 248 10^3/uL (140-450); Red Blood Cells 4.43 10^6/uL (4.0-5.20); White Blood Cell 7.4 10^3/uL (4.4-10.8)
[2024-03-20 04:37] LABS: Alanine Aminotransferase 17 U/L (7-40); Albumin 4.3 g/dL (3.2-4.8); Alkaline Phosphatase 64 U/L (46-116); Anion Gap 6 (5-15); Aspartate Aminotransferase 23 U/L (13-40); BUN/Creatinine Ratio 17.2 (10.0-20.0); Bilirubin, Total 0.3 mg/dL (0.2-1.0); Blood Urea Nitrogen 10 mg/dL (9-23); Calcium 9.3 mg/dL (8.7-10.4); Carbon Dioxide 28 mmol/L (20-31); Chloride 101 mmol/L (98-107); Glucose 141 mg/dL (74-106); Potassium 4.7 mmol/L (3.5-5.1); Sodium 135 mmol/L (136-145); Total Protein 6.8 g/dL (5.7-8.2)
[2024-03-20] MEDS: BUPROPION HCL 150 MG PO SCH (07:00)
[2024-03-20] MEDS: ENOXAPARIN SOD 30 MG/0.3 ML SYRINGE SC SCH (11:00)
[2024-03-20] MEDS: PANTOPRAZOLE 40 MG TAB PO SCH (11:02)
--- NOTE | 2024-03-20 14:15 | DVHPN2 ---
Subjective 69-year-old female with a history of COPD and chronic respiratory failure on home O2 came with shortness of breaths and cough productive of white phlegm for few days Changes from previous H/P or p: Changes Eyes: No Pain, No Vision change, No Conjunctivae inflammation, No Eyelid inflammation, No Other, No Redness ENT: No Ear pain, No Ear discharge, No Nose pain, No Nose discharge, No Nose congestion, No Mouth pain, No Mouth swelling, No Throat pain, No Throat swelling, No Other Cardiovascular: No Chest Pain, No Palpitations, No Orthopnea, No Paroxysmal Noc. Dyspnea, No Edema, No Lt Headedness, No Other Respiratory: Cough; No Dry; Shortness of breath, SOB with excertion, Wheezing; No Hemoptysis, No Pleuritic Pain, No Sputum, No Other Gastrointestinal: No Nausea, No Vomiting, No Abdominal Pain, No Diarrhea, No Constipation, No Melena, No Hematochezia, No Other Genitourinary: No Dysuria, No Frequency, No Incontinence, No Hematuria, No Retention, No Other Skin: No Rash, No Lesions, No Jaundice, No Bruising, No Other Objective Vitals Vital Signs Date Time Temp Pulse Resp B/P (MAP) Pulse Ox O2 Delivery O2 Flow Rate FiO2 03/20/24 13:00 117 17 135/55 (81) 95 03/20/24 11:57 Nasal Cannula 3.0 03/20/24 11:57 32 03/20/24 08:58 97.6 97.6 Intake/Output Intake and Output 03/20/24 07:00 Intake Total 150.0 ml Balance 150.0 ml Intake IV Total 150.0 ml General Appearance: Alert, Oriented X3, moderate distress Lungs: Other (Diffuse wheezing) Cardiovascular: Regular rate, Normal S1, Normal S2 Abdomen: Normal bowel sounds, Soft, No tenderness Extremities: No edema Medications Current Medications Medications Dose Ordered Sig/Shanique Route Start Time Stop Time Status Last Admin Dose Admin Albuterol 2.5 mg Q4HPRN PRN NEB 03/19/24 10:45 Albuterol 2.5 mg Q6HR NEB 03/19/24 12:00 03/20/24 11:56 2.5 MG Ipratropium [place] 0.5 mg Q4HPRN PRN NEB 03/19/24 10:45 Ipratropium [place] 0.5 mg Q6HR NEB 03/19/24 12:00 03/20/24 11:56 0.5 MG Methylprednisolone Sodium Succinate 60 mg BID IV 03/19/24 22:00 03/20/24 10:57 60 MG Pantoprazole Sodium 40 mg DAILY PO 03/20/24 10:00 03/20/24 11:02 40 MG Patient Own Medication 1 tab QAM PO 03/20/24 07:00 Atorvastatin Calcium 80 mg HS PO 03/19/24 22:00 03/19/24 22:15 80 MG Ondansetron HCl 4 mg Q4HP PRN IV 03/19/24 11:00 Enoxaparin Sodium 30 mg DAILY SC 03/20/24 10:00 03/20/24 11:00 30 MG Cefepime HCl 50 ml @ 12.5 mls/hr Q12HR IV 03/19/24 22:00 03/20/24 11:02 12.5 MLS/HR Alprazolam 0.25 mg TIDPRN PRN PO 03/19/24 18:30 03/20/24 09:57 0.25 MG Laboratory Results Laboratory Tests 03/20/24 03:23 Chemistry Test 03/20/24 03:23 Albumin 4.3 g/dL (3.2-4.8) Calcium Level 9.3 mg/dL (8.7-10.4) Total Protein 6.8 g/dL (5.7-8.2) LFT Test 03/20/24 03:23 Alanine Aminotransferase (ALT) 17 U/L (7-40) Alkaline Phosphatase 64 U/L (46-116) Aspartate Amino Transferase (AST) 23 U/L (13-40) Total Bilirubin 0.3 mg/dL (0.2-1.0) Urinalysis Test 03/19/24 12:13 Urine Color Yellow (Yellow) Urine Clarity Clear (Clear) Urine pH 6.0 (5.0-9.0) Urine Specific [place] 1.024 (1.001-1.035) Urine Protein 1+ (Negative) H Urine Ketones 2+ (Negative) H Urine Blood Trace /uL (Negative) H Urine Nitrite Negative (Negative) Urine Bilirubin Negative (Negative) Urine Urobilinogen Normal mg/dL (Negative) Urine Leukocyte Esterase Negative /uL (Negative) Urine RBC 67 /hpf (0 - 4) Urine WBC 8 /hpf (0 - 5) Urine Squamous Epithelial Cells None seen /hpf (<5) Urine Bacteria None seen /hpf (None Seen) Urine Mucus Few (None Seen) Urine Glucose 3+ mg/dL (Normal) H Microbiology Microbiology Date/Time Source Procedure Growth Status 03/19/24 09:00 Blood Blood Culture - Preliminary NO GROWTH AFTER 24 HOURS OF INCUBATION. Resulted Assessment/Plan Assessment/Plan Acute hypoxic respiratory failure Chronic respiratory failure on home O2 COPD exacerbation Acute bronchitis Dyslipidemia Ex-smoker Anxiety History of AFib Plan Continue cefepime Add Zithromax Continue IV steroids Oxygen as needed Resume the home medications DVT prophylaxis with Lovenox GI prophylaxis with Protonix Ativan p.r.n. anxiety Full code Advance directives discussed for more than 20 minutes Atrial fibrillation: Start Eliquis 5 mg twice a day Plan discussed with: Patient Date of Service: Mar 20, 2024 Billing Provider: ROBERT ELLIOTT MD Common Visit Codes: [id number] INP/OBS CARE(HIGH) Secondary Visit Codes: [id number] CARE PLAN 30 MINUTES ROBERT ELLIOTT MD Mar 20, 2024 14:15
[2024-03-20] MEDS: AZITHROMYCIN 500MG/ 250ML 250 ML IV ONE (15:22)
[2024-03-20] MEDS: LORazepam 2MG/ML-1ML VIAL IV PRN (18:37)
[2024-03-20] MEDS: IPRATROPIUM BROM 0.5 MG/2.5ML INH SOL NEB SCH (18:48)
[2024-03-20] MEDS: ALBUTEROL SULF 2.5 MG/0.5ML(0.5%) NEB SOLN NEB SCH (18:48)
[2024-03-20] MEDS: ACETYLCYSTEINE 20%(200MG/ML) SOL 4ML NEB SCH (18:48)
[2024-03-20] MEDS: BUDESONIDE (INHALATION) 0.5 MG/2 ML NEB NEB SCH (18:48)
[2024-03-20] MEDS: ALBUTEROL SULF 2.5 MG/0.5ML(0.5%) NEB SOLN ONE (19:29)
[2024-03-20] MEDS: ALBUTEROL SULF 2.5 MG/0.5ML(0.5%) NEB SOLN NEB ONE (19:43)
[2024-03-20] MEDS: guaiFENesin 200 MG/10 ML UD PO PRN (20:22)
[2024-03-20] MEDS: APIXABAN 5 MG TAB PO SCH (22:05)
[2024-03-20] MEDS: IPRATROPIUM BROM 0.5 MG/2.5ML INH SOL NEB PRN (22:41)
[2024-03-20] MEDS: LEVALBUTEROL HCL 1.25 MG/3 ML NEB NEB SCH (22:42)
[2024-03-20] MEDS: LEVALBUTEROL HCL 1.25 MG/3 ML NEB ONE (22:42)
--- NOTE | 2024-03-20 23:21 | DVHPN2 ---
Progress Note - Dictate Date Seen: Mar 20, 2024 Medical Necessity Reason Pt with a Central, PICC or Fol: No Subjective Patient seen and examined at bedside. Remains on supplemental oxygen Overnight events reviewed. vital signs Vital Sign Date Time Temp Pulse Resp B/P (MAP) Pulse Ox O2 Delivery O2 Flow Rate FiO2 03/20/24 22:42 97 40.0 03/20/24 22:42 121 28 03/20/24 22:42 35 03/20/24 22:42 Hi-Flow Heated NC+ 03/20/24 22:00 115/75 (88) 03/20/24 08:58 97.6 97.6 Total Intake and Output 03/19/24 03/19/24 03/20/24 15:00 23:00 07:00 Intake Total 100 ml 12.5 ml 37.5 ml Balance 100 ml 12.5 ml 37.5 ml medications Current Medications Medications Dose Ordered Sig/Shanique Route Start Time Stop Time Status Last Admin Dose Admin Albuterol 2.5 mg Q4HPRN PRN NEB 03/19/24 10:45 Ipratropium [place] 0.5 mg Q4HPRN PRN NEB 03/19/24 10:45 03/20/24 22:41 0.5 MG Methylprednisolone Sodium Succinate 60 mg BID IV 03/19/24 22:00 03/20/24 22:05 60 MG Pantoprazole Sodium 40 mg DAILY PO 03/20/24 10:00 03/20/24 11:02 40 MG Patient Own Medication 1 tab QAM PO 03/20/24 07:00 Atorvastatin Calcium 80 mg HS PO 03/19/24 22:00 03/20/24 22:05 80 MG Ondansetron HCl 4 mg Q4HP PRN IV 03/19/24 11:00 Cefepime HCl 50 ml @ 12.5 mls/hr Q12HR IV 03/19/24 22:00 03/20/24 22:05 12.5 MLS/HR Lorazepam 0.5 mg Q8HP PRN IV 03/20/24 14:15 03/20/24 20:23 0.5 MG Azithromycin 250 ml @ 125 mls/hr DAILY@1400 IV 03/21/24 14:00 Apixaban 5 mg BID PO 03/20/24 22:00 03/20/24 22:05 5 MG Guaifenesin 200 mg Q4HP PRN PO 03/20/24 15:15 03/20/24 20:22 200 MG Ipratropium [place] 0.5 mg Q4HR NEB 03/20/24 22:00 03/20/24 18:48 0.5 MG Acetylcysteine 200 mg Q8HR NEB 03/20/24 22:00 03/23/24 21:59 03/20/24 18:48 200 MG Budesonide 0.5 mg BID NEB 03/20/24 22:00 03/20/24 18:48 0.5 MG Levalbuterol HCl 0.625 mg Q4HR NEB 03/20/24 22:00 03/20/24 22:42 0.625 MG objective Gen.: Patient lying in bed in no apparent distress. On supplemental oxygen. Head: Normocephalic, atraumatic. Eyes: EOMI/PERRLA. Ears: Normal hearing. Normal anatomy. Neck/trachea: Trachea midline, supple. Nose: Normal external anatomy. Mouth: Moist mucous membranes. Chest: Decreased air entry bilaterally. Bilateral wheezing; no rhonchi. Cardiovascular: Positive S1, positive S2. Regular rate and rhythm. Abdomen: Positive bowel sounds in all 4 quadrants. Soft, non-tender, non- distended. : Deferred. Rectal: Deferred. Skin: Warm, dry. Intact. Extremities: 2+ radial pulses bilaterally. No lower extremity edema. Neuro: Awake, alert, oriented x3. No gross motor or sensory deficits. Cranial nerves II through XII intact. Gait not assessed. laboratory and microbiology Laboratory Tests 03/20/24 03:23 Test 03/20/24 03:23 Range/Units Serum Glucose 141 H 74-106 mg/dL Assessment/Plan Impression: Acute hypoxic respiratory failure AE COPD Wheezing Atelectasis Cough Events: Remains on supplemental O2 High flow oxygen - increased O2 requirements Taper O2 as tolerated Continues with wheezing. Continue bronchodilators Increase frequency of albuterol-ipratropium to q.4 hours. IV steroids Start Mucomyst, Pulmicort Incentive spirometry Continue abx Antitussive PRN. Labs and imaging reviewed. Rest of plan as noted below. Plan: Supplemental oxygen Titrate to keep O2 sats above 92%. Continue bronchodilators. Steroids Continue antibiotics Incentive spirometry Monitor renal function. Monitor electrolytes. Supplement as necessary. Monitor ins and outs. DVT prophylaxis. Prognosis: Guarded given patient's multiple co-morbidities. Rest of plan per hospitalist and other consultants. Thank you Esther Mcneill, BRENDA, for allowing me to participate in this patient's care. Further recommendations will depend on the patient's clinical course. Please do not hesitate to contact me if you have any questions or concerns. This medical document was created using an electronic medical record system with [employer] dictation system. Although these documentations are being carefully reviewed, there may still be some phonetic and typographical changes. The errors are purely typographical, due to imperfection on the software program, and do not reflect any compromise in the patient's medical care. Plan discussed with: Patient, Other (GOLDY Sexton) Critical Care Time(min): 35 TYSHAWN HANDY MD Mar 20, 2024 23:21
[2024-03-21] VITALS (22 sets, daily range): BP systolic 98–158; BP diastolic 43–86; PULSE 103–126; RESP 15–32; TEMP 98.2–98.6; O2SAT 90–99
[2024-03-21] MEDS: methylPREDNISolone SOD SUCC 125 MG/2 ML VL IV SCH (06:28)
[2024-03-21] MEDS: guaiFENesin-CODEINE Liq 5 ML UD PO PRN (13:40)
[2024-03-21] MEDS: AZITHROMYCIN 500MG/ 250ML 250 ML IV SCH (13:49)
--- NOTE | 2024-03-21 15:22 | DVHPN2 ---
Subjective Not get a better yet She is on high-flow oxygen now Changes from previous H/P or p: Changes Eyes: No Pain, No Vision change, No Conjunctivae inflammation, No Eyelid inflammation, No Other, No Redness ENT: No Ear pain, No Ear discharge, No Nose pain, No Nose discharge, No Nose congestion, No Mouth pain, No Mouth swelling, No Throat pain, No Throat swelling, No Other Cardiovascular: No Chest Pain, No Palpitations, No Orthopnea, No Paroxysmal Noc. Dyspnea, No Edema, No Lt Headedness, No Other Respiratory: Cough; No Dry; Shortness of breath, SOB with excertion, Wheezing; No Hemoptysis, No Pleuritic Pain, No Sputum, No Other Gastrointestinal: No Nausea, No Vomiting, No Abdominal Pain, No Diarrhea, No Constipation, No Melena, No Hematochezia, No Other Genitourinary: No Dysuria, No Frequency, No Incontinence, No Hematuria, No Retention, No Other Skin: No Rash, No Lesions, No Jaundice, No Bruising, No Other Objective Vitals Vital Signs Date Time Temp Pulse Resp B/P (MAP) Pulse Ox O2 Delivery O2 Flow Rate FiO2 03/21/24 15:00 110 20 147/74 (98) 94 03/21/24 13:34 35.0 35 03/21/24 12:00 98.2 98.2 03/21/24 11:03 Nasal Cannula Intake/Output Intake and Output 03/21/24 07:00 Intake Total 350.0 ml Balance 350.0 ml Intake IV Total 350.0 ml General Appearance: Alert, Oriented X3, moderate distress Lungs: Other (Diffuse wheezing) Cardiovascular: Regular rate, Normal S1, Normal S2 Abdomen: Normal bowel sounds, Soft, No tenderness Extremities: No edema Medications Current Medications Medications Dose Ordered Sig/Shanique Route Start Time Stop Time Status Last Admin Dose Admin Albuterol 2.5 mg Q4HPRN PRN NEB 03/19/24 10:45 Ipratropium [place] 0.5 mg Q4HPRN PRN NEB 03/19/24 10:45 03/21/24 03:19 0.5 MG Pantoprazole Sodium 40 mg DAILY PO 03/20/24 10:00 03/21/24 10:52 40 MG Patient Own Medication 1 tab QAM PO 03/20/24 07:00 Atorvastatin Calcium 80 mg HS PO 03/19/24 22:00 03/20/24 22:05 80 MG Ondansetron HCl 4 mg Q4HP PRN IV 03/19/24 11:00 Cefepime HCl 50 ml @ 12.5 mls/hr Q12HR IV 03/19/24 22:00 03/21/24 10:52 12.5 MLS/HR Lorazepam 0.5 mg Q8HP PRN IV 03/20/24 14:15 03/21/24 09:26 0.5 MG Azithromycin 250 ml @ 125 mls/hr DAILY@1400 IV 03/21/24 14:00 03/21/24 13:49 125 MLS/HR Apixaban 5 mg BID PO 03/20/24 22:00 03/21/24 10:52 5 MG Ipratropium [place] 0.5 mg Q4HR NEB 03/20/24 22:00 03/21/24 13:57 0.5 MG Acetylcysteine 200 mg Q8HR NEB 03/20/24 22:00 03/23/24 21:59 03/21/24 13:57 200 MG Budesonide 0.5 mg BID NEB 03/20/24 22:00 03/21/24 05:49 0.5 MG Levalbuterol HCl 0.625 mg Q4HR NEB 03/20/24 22:00 03/21/24 13:57 0.625 MG Methylprednisolone Sodium Succinate 60 mg Q8HR IV 03/21/24 06:00 03/21/24 13:39 60 MG Guaifenesin/ Codeine Phosphate 5 ml Q4HPRN PRN PO 03/21/24 13:00 03/21/24 13:40 5 ML Laboratory Results Laboratory Tests 03/20/24 03:23 Urinalysis Test 03/19/24 12:13 Urine Color Yellow (Yellow) Urine Clarity Clear (Clear) Urine pH 6.0 (5.0-9.0) Urine Specific [place] 1.024 (1.001-1.035) Urine Protein 1+ (Negative) H Urine Ketones 2+ (Negative) H Urine Blood Trace /uL (Negative) H Urine Nitrite Negative (Negative) Urine Bilirubin Negative (Negative) Urine Urobilinogen Normal mg/dL (Negative) Urine Leukocyte Esterase Negative /uL (Negative) Urine RBC 67 /hpf (0 - 4) Urine WBC 8 /hpf (0 - 5) Urine Squamous Epithelial Cells None seen /hpf (<5) Urine Bacteria None seen /hpf (None Seen) Urine Mucus Few (None Seen) Urine Glucose 3+ mg/dL (Normal) H Blood Gas Results Test 03/21/24 03:40 Arterial Blood pH 7.297 (7.350-7.450) FiO2 % 40.0 Microbiology Microbiology Date/Time Source Procedure Growth Status 03/19/24 09:00 Blood Blood Culture - Preliminary NO GROWTH AFTER 48 HOURS OF INCUBATION. Resulted Assessment/Plan Assessment/Plan Acute hypoxic respiratory failure Chronic respiratory failure on home O2 COPD exacerbation Acute bronchitis Dyslipidemia Ex-smoker Anxiety History of AFib Plan 03/20/2024: Continue cefepime Add Zithromax Continue IV steroids Oxygen as needed Resume the home medications DVT prophylaxis with Lovenox GI prophylaxis with Protonix Ativan p.r.n. anxiety Full code Advance directives discussed for more than 20 minutes Atrial fibrillation: Start Eliquis 5 mg twice a day 03/21/2024: High-flow oxygen Pulmonary consultation IV steroids IV antibiotics Full code Discussed the advance directives again with the patient, she wants full code for now Plan discussed with: Patient My Orders Orders - ROBERT ELLIOTT MD Procedure Category Date Status Time Insert Midline ORDERS 03/21/24 Transmitted 14:43 Date of Service: Mar 21, 2024 Billing Provider: ROBERT ELLIOTT MD Common Visit Codes: [id number] INP/OBS CARE(HIGH) ROBERT ELLIOTT MD Mar 21, 2024 15:22
--- NOTE | 2024-03-21 21:02 | DVHPN2 ---
Progress Note - Dictate Date Seen: Mar 21, 2024 Medical Necessity Reason Pt with a Central, PICC or Fol: No Subjective Patient seen and examined at bedside. Remains on supplemental oxygen Overnight events reviewed. vital signs Vital Sign Date Time Temp Pulse Resp B/P (MAP) Pulse Ox O2 Delivery O2 Flow Rate FiO2 03/21/24 20:00 109 03/21/24 19:48 Hi-Flow Heated NC+ 35 35 35 03/21/24 19:30 18 14/80 (58) 96 03/21/24 16:00 98.3 98.3 Total Intake and Output 03/20/24 03/20/24 03/21/24 15:00 23:00 07:00 Intake Total 37.5 ml 262.5 ml 50.0 ml Balance 37.5 ml 262.5 ml 50.0 ml medications Current Medications Medications Dose Ordered Sig/Shanique Route Start Time Stop Time Status Last Admin Dose Admin Albuterol 2.5 mg Q4HPRN PRN NEB 03/19/24 10:45 Ipratropium [place] 0.5 mg Q4HPRN PRN NEB 03/19/24 10:45 03/21/24 03:19 0.5 MG Pantoprazole Sodium 40 mg DAILY PO 03/20/24 10:00 03/21/24 10:52 40 MG Patient Own Medication 1 tab QAM PO 03/20/24 07:00 Atorvastatin Calcium 80 mg HS PO 03/19/24 22:00 03/20/24 22:05 80 MG Ondansetron HCl 4 mg Q4HP PRN IV 03/19/24 11:00 Cefepime HCl 50 ml @ 12.5 mls/hr Q12HR IV 03/19/24 22:00 03/21/24 10:52 12.5 MLS/HR Lorazepam 0.5 mg Q8HP PRN IV 03/20/24 14:15 03/21/24 09:26 0.5 MG Azithromycin 250 ml @ 125 mls/hr DAILY@1400 IV 03/21/24 14:00 03/21/24 13:49 125 MLS/HR Apixaban 5 mg BID PO 03/20/24 22:00 03/21/24 10:52 5 MG Ipratropium [place] 0.5 mg Q4HR NEB 03/20/24 22:00 03/21/24 18:45 0.5 MG Acetylcysteine 200 mg Q8HR NEB 03/20/24 22:00 03/23/24 21:59 03/21/24 13:57 200 MG Budesonide 0.5 mg BID NEB 03/20/24 22:00 03/21/24 05:49 0.5 MG Levalbuterol HCl 0.625 mg Q4HR NEB 03/20/24 22:00 03/21/24 18:45 0.625 MG Methylprednisolone Sodium Succinate 60 mg Q8HR IV 03/21/24 06:00 03/21/24 13:39 60 MG Guaifenesin/ Codeine Phosphate 5 ml Q4HPRN PRN PO 03/21/24 13:00 03/21/24 17:42 5 ML objective Gen.: Patient lying in bed in no apparent distress. On supplemental oxygen. Head: Normocephalic, atraumatic. Eyes: EOMI/PERRLA. Ears: Normal hearing. Normal anatomy. Neck/trachea: Trachea midline, supple. Nose: Normal external anatomy. Mouth: Moist mucous membranes. Chest: Decreased air entry bilaterally. Bilateral wheezing; no rhonchi. Cardiovascular: Positive S1, positive S2. Regular rate and rhythm. Abdomen: Positive bowel sounds in all 4 quadrants. Soft, non-tender, non- distended. : Deferred. Rectal: Deferred. Skin: Warm, dry. Intact. Extremities: 2+ radial pulses bilaterally. No lower extremity edema. Neuro: Awake, alert, oriented x3. No gross motor or sensory deficits. Cranial nerves II through XII intact. Gait not assessed. laboratory and microbiology Laboratory Tests 03/20/24 03:23 Test 03/20/24 03:23 Range/Units Serum Glucose 141 H 74-106 mg/dL Assessment/Plan Impression: Acute hypoxic respiratory failure AE COPD Wheezing Atelectasis Cough Events: Remains on supplemental O2 High flow oxygen at flow rate 35 LPM, FiO2 35% Taper O2 as tolerated Continues with wheezing. Continue bronchodilators IV steroids Mucomyst, Pulmicort Incentive spirometry Continue antibiotics Antitussive - started Robitussin w/ Codeine. ABG c/w acidemia due to CO2 retention. Patient defers intubation for now. Labs and imaging reviewed. Rest of plan as noted below. Plan: Supplemental oxygen Titrate to keep O2 sats above 92%. Continue bronchodilators. Steroids Continue antibiotics Incentive spirometry Monitor renal function. Monitor electrolytes. Supplement as necessary. Monitor ins and outs. DVT prophylaxis. Prognosis: Guarded given patient's multiple co-morbidities. Condition: Critical Rest of plan per hospitalist and other consultants. A total of 35 minutes of critical care time was spent reviewing the patient record, examining the patient, making a diagnostic and therapeutic plan, discussing this plan with the medical personnel, following up on diagnostic studies and following the patient for clinical stability excluding any and all procedures. At least 50% of this time was spent in direct, [id number] contact. Thank you Esther Mcneill NP, for allowing me to participate in this patient's care. Further recommendations will depend on the patient's clinical course. Please do not hesitate to contact me if you have any questions or concerns. This medical document was created using an electronic medical record system with [employer] dictation system. Although these documentations are being carefully reviewed, there may still be some phonetic and typographical changes. The errors are purely typographical, due to imperfection on the software program, and do not reflect any compromise in the patient's medical care. Plan discussed with: Other (GOLDY Walker) Critical Care Time(min): 35 TYSHAWN HANDY MD Mar 21, 2024 21:02
[2024-03-21] MEDS: ALBUTEROL SULF 2.5 MG/0.5ML(0.5%) NEB SOLN NEB PRN (22:25)
[2024-03-22] VITALS (15 sets, daily range): BP systolic 134–152; BP diastolic 74–91; PULSE 98–121; RESP 18–22; O2SAT 96–100
--- NOTE | 2024-03-22 18:52 | DVHPN2 ---
Subjective Feels a little better She is off the high-flow and on Oxymizer now Changes from previous H/P or p: Changes Eyes: No Pain, No Vision change, No Conjunctivae inflammation, No Eyelid inflammation, No Other, No Redness ENT: No Ear pain, No Ear discharge, No Nose pain, No Nose discharge, No Nose congestion, No Mouth pain, No Mouth swelling, No Throat pain, No Throat swelling, No Other Cardiovascular: No Chest Pain, No Palpitations, No Orthopnea, No Paroxysmal Noc. Dyspnea, No Edema, No Lt Headedness, No Other Respiratory: Cough; No Dry; Shortness of breath, SOB with excertion, Wheezing; No Hemoptysis, No Pleuritic Pain, No Sputum, No Other Gastrointestinal: No Nausea, No Vomiting, No Abdominal Pain, No Diarrhea, No Constipation, No Melena, No Hematochezia, No Other Genitourinary: No Dysuria, No Frequency, No Incontinence, No Hematuria, No Retention, No Other Skin: No Rash, No Lesions, No Jaundice, No Bruising, No Other Objective Vitals Vital Signs Date Time Temp Pulse Resp B/P (MAP) Pulse Ox O2 Delivery O2 Flow Rate FiO2 03/22/24 16:00 104 03/22/24 13:57 20 98 03/22/24 13:52 Oxymizer 4.0 03/22/24 13:52 N/A 03/22/24 13:00 155/89 (111) 03/22/24 08:30 98.2 98.2 Intake/Output Intake and Output 03/22/24 07:00 Intake Total 675.0 ml Output Total 501 ml Balance 174.0 ml Intake Oral 300 ml IV Total 375.0 ml Output Urine Total 500 ml Stool Total 1 ml # Voids 3 General Appearance: Alert, Oriented X3, moderate distress Lungs: Other (Diffuse wheezing) Cardiovascular: Regular rate, Normal S1, Normal S2 Abdomen: Normal bowel sounds, Soft, No tenderness Extremities: No edema Medications Current Medications Medications Dose Ordered Sig/Shanique Route Start Time Stop Time Status Last Admin Dose Admin Albuterol 2.5 mg Q4HPRN PRN NEB 03/19/24 10:45 03/22/24 13:51 2.5 MG Ipratropium [place] 0.5 mg Q4HPRN PRN NEB 03/19/24 10:45 03/21/24 03:19 0.5 MG Pantoprazole Sodium 40 mg DAILY PO 03/20/24 10:00 03/22/24 10:08 40 MG Patient Own Medication 1 tab QAM PO 03/20/24 07:00 Atorvastatin Calcium 80 mg HS PO 03/19/24 22:00 03/21/24 22:01 80 MG Ondansetron HCl 4 mg Q4HP PRN IV 03/19/24 11:00 Cefepime HCl 50 ml @ 12.5 mls/hr Q12HR IV 03/19/24 22:00 03/22/24 10:12 12.5 MLS/HR Lorazepam 0.5 mg Q8HP PRN IV 03/20/24 14:15 03/21/24 09:26 0.5 MG Azithromycin 250 ml @ 125 mls/hr DAILY@1400 IV 03/21/24 14:00 03/22/24 14:11 125 MLS/HR Apixaban 5 mg BID PO 03/20/24 22:00 03/22/24 10:08 5 MG Ipratropium [place] 0.5 mg Q4HR NEB 03/20/24 22:00 03/22/24 18:21 0.5 MG Acetylcysteine 200 mg Q8HR NEB 03/20/24 22:00 03/23/24 21:59 03/22/24 13:52 200 MG Budesonide 0.5 mg BID NEB 03/20/24 22:00 03/22/24 18:21 0.5 MG Levalbuterol HCl 0.625 mg Q4HR NEB 03/20/24 22:00 03/22/24 18:21 0.625 MG Methylprednisolone Sodium Succinate 60 mg Q8HR IV 03/21/24 06:00 03/22/24 14:11 60 MG Guaifenesin/ Codeine Phosphate 5 ml Q4HPRN PRN PO 03/21/24 13:00 03/21/24 17:42 5 ML Laboratory Results Laboratory Tests 03/20/24 03:23 Urinalysis Test 03/19/24 12:13 Urine Color Yellow (Yellow) Urine Clarity Clear (Clear) Urine pH 6.0 (5.0-9.0) Urine Specific [place] 1.024 (1.001-1.035) Urine Protein 1+ (Negative) H Urine Ketones 2+ (Negative) H Urine Blood Trace /uL (Negative) H Urine Nitrite Negative (Negative) Urine Bilirubin Negative (Negative) Urine Urobilinogen Normal mg/dL (Negative) Urine Leukocyte Esterase Negative /uL (Negative) Urine RBC 67 /hpf (0 - 4) Urine WBC 8 /hpf (0 - 5) Urine Squamous Epithelial Cells None seen /hpf (<5) Urine Bacteria None seen /hpf (None Seen) Urine Mucus Few (None Seen) Urine Glucose 3+ mg/dL (Normal) H Microbiology Microbiology Date/Time Source Procedure Growth Status 03/21/24 09:37 Nose MRSA Screen - Final Complete 03/19/24 09:00 Blood Blood Culture - Preliminary NO GROWTH AFTER 72 HOURS OF INCUBATION. Resulted Assessment/Plan Assessment/Plan Acute hypoxic respiratory failure Chronic respiratory failure on home O2 COPD exacerbation Acute bronchitis Dyslipidemia Ex-smoker Anxiety History of AFib Plan 03/20/2024: Continue cefepime Add Zithromax Continue IV steroids Oxygen as needed Resume the home medications DVT prophylaxis with Lovenox GI prophylaxis with Protonix Ativan p.r.n. anxiety Full code Advance directives discussed for more than 20 minutes Atrial fibrillation: Start Eliquis 5 mg twice a day 03/21/2024: High-flow oxygen Pulmonary consultation IV steroids IV antibiotics Full code Discussed the advance directives again with the patient, she wants full code for now 03/22/2024: Oxymizer oxygen titrate as needed Continue IV antibiotics Continue IV steroids Pulmonary consult is on Eliquis Plan discussed with: Patient Date of Service: Mar 22, 2024 Billing Provider: ROBERT ELLIOTT MD Common Visit Codes: [id number] INP/OBS CARE(HIGH) ROBERT ELLIOTT MD Mar 22, 2024 18:52
--- NOTE | 2024-03-22 21:28 | DVHPN2 ---
Progress Note - Dictate Date Seen: Mar 22, 2024 Medical Necessity Reason Pt with a Central, PICC or Fol: No Subjective Patient seen and examined at bedside. Remains on supplemental oxygen Overnight events reviewed. vital signs Vital Sign Date Time Temp Pulse Resp B/P (MAP) Pulse Ox O2 Delivery O2 Flow Rate FiO2 03/22/24 20:00 104 20 141/58 (85) 100 03/22/24 19:30 Nasal Cannula* 5 40 03/22/24 19:30 98.0 98.0 Total Intake and Output 03/21/24 03/21/24 03/22/24 15:00 23:00 07:00 Intake Total 75.0 ml 562.5 ml 37.5 ml Output Total 500 ml 0 ml 1 ml Balance -425.0 ml 562.5 ml 36.5 ml medications Current Medications Medications Dose Ordered Sig/Shanique Route Start Time Stop Time Status Last Admin Dose Admin Albuterol 2.5 mg Q4HPRN PRN NEB 03/19/24 10:45 03/22/24 13:51 2.5 MG Ipratropium [place] 0.5 mg Q4HPRN PRN NEB 03/19/24 10:45 03/21/24 03:19 0.5 MG Pantoprazole Sodium 40 mg DAILY PO 03/20/24 10:00 03/22/24 10:08 40 MG Patient Own Medication 1 tab QAM PO 03/20/24 07:00 Atorvastatin Calcium 80 mg HS PO 03/19/24 22:00 03/21/24 22:01 80 MG Ondansetron HCl 4 mg Q4HP PRN IV 03/19/24 11:00 Cefepime HCl 50 ml @ 12.5 mls/hr Q12HR IV 03/19/24 22:00 03/22/24 10:12 12.5 MLS/HR Lorazepam 0.5 mg Q8HP PRN IV 03/20/24 14:15 03/21/24 09:26 0.5 MG Azithromycin 250 ml @ 125 mls/hr DAILY@1400 IV 03/21/24 14:00 03/22/24 14:11 125 MLS/HR Apixaban 5 mg BID PO 03/20/24 22:00 03/22/24 10:08 5 MG Ipratropium [place] 0.5 mg Q4HR NEB 03/20/24 22:00 03/22/24 18:21 0.5 MG Acetylcysteine 200 mg Q8HR NEB 03/20/24 22:00 03/23/24 21:59 03/22/24 13:52 200 MG Budesonide 0.5 mg BID NEB 03/20/24 22:00 03/22/24 18:21 0.5 MG Levalbuterol HCl 0.625 mg Q4HR NEB 03/20/24 22:00 03/22/24 18:21 0.625 MG Methylprednisolone Sodium Succinate 60 mg Q8HR IV 03/21/24 06:00 03/22/24 14:11 60 MG Guaifenesin/ Codeine Phosphate 5 ml Q4HPRN PRN PO 03/21/24 13:00 03/21/24 17:42 5 ML objective Gen.: Patient lying in bed in no apparent distress. On supplemental oxygen. Head: Normocephalic, atraumatic. Eyes: EOMI/PERRLA. Ears: Normal hearing. Normal anatomy. Neck/trachea: Trachea midline, supple. Nose: Normal external anatomy. Mouth: Moist mucous membranes. Chest: Decreased air entry bilaterally. Bilateral wheezing; no rhonchi. Cardiovascular: Positive S1, positive S2. Regular rate and rhythm. Abdomen: Positive bowel sounds in all 4 quadrants. Soft, non-tender, non- distended. : Deferred. Rectal: Deferred. Skin: Warm, dry. Intact. Extremities: 2+ radial pulses bilaterally. No lower extremity edema. Neuro: Awake, alert, oriented x3. No gross motor or sensory deficits. Cranial nerves II through XII intact. Gait not assessed. laboratory and microbiology Laboratory Tests 03/20/24 03:23 Test 03/20/24 03:23 Range/Units Serum Glucose 141 H 74-106 mg/dL Assessment/Plan Impression: Acute hypoxic respiratory failure AE COPD Wheezing Atelectasis Cough Events: Remains on supplemental O2 High flow oxygen at flow rate 35 LPM, FiO2 35% Taper O2 as tolerated - transition to low flow oxygen Wheezing slowly improving. Continue bronchodilators IV steroids Mucomyst, Pulmicort Incentive spirometry Continue antibiotics Labs and imaging reviewed. Rest of plan as noted below. Plan: Supplemental oxygen Titrate to keep O2 sats above 92%. Continue bronchodilators. Steroids Continue antibiotics Incentive spirometry Monitor renal function. Monitor electrolytes. Supplement as necessary. Monitor ins and outs. DVT prophylaxis. Prognosis: Guarded given patient's multiple co-morbidities. Rest of plan per hospitalist and other consultants. Thank you Esther Mcneill NP, for allowing me to participate in this patient's care. Further recommendations will depend on the patient's clinical course. Please do not hesitate to contact me if you have any questions or concerns. This medical document was created using an electronic medical record system with [employer] dictation system. Although these documentations are being carefully reviewed, there may still be some phonetic and typographical changes. The errors are purely typographical, due to imperfection on the software program, and do not reflect any compromise in the patient's medical care. Plan discussed with: Patient, Other (RN) TYSHAWN HANDY MD Mar 22, 2024 21:28
[2024-03-23] VITALS (10 sets, daily range): BP systolic 119–125; BP diastolic 59–65; PULSE 98–125; RESP 18–23; TEMP 97.5–98; O2SAT 92–100
--- NOTE | 2024-03-23 12:20 | DVHPN2 ---
Subjective She is better She is on 5 L nasal cannula now Changes from previous H/P or p: Changes Eyes: No Pain, No Vision change, No Conjunctivae inflammation, No Eyelid inflammation, No Other, No Redness ENT: No Ear pain, No Ear discharge, No Nose pain, No Nose discharge, No Nose congestion, No Mouth pain, No Mouth swelling, No Throat pain, No Throat swelling, No Other Cardiovascular: No Chest Pain, No Palpitations, No Orthopnea, No Paroxysmal Noc. Dyspnea, No Edema, No Lt Headedness, No Other Respiratory: Cough; No Dry; Shortness of breath, SOB with excertion, Wheezing; No Hemoptysis, No Pleuritic Pain, No Sputum, No Other Gastrointestinal: No Nausea, No Vomiting, No Abdominal Pain, No Diarrhea, No Constipation, No Melena, No Hematochezia, No Other Genitourinary: No Dysuria, No Frequency, No Incontinence, No Hematuria, No Retention, No Other Skin: No Rash, No Lesions, No Jaundice, No Bruising, No Other Objective Vitals Vital Signs Date Time Temp Pulse Resp B/P (MAP) Pulse Ox O2 Delivery O2 Flow Rate FiO2 03/23/24 12:08 111 20 137/71 (93) 99 03/23/24 07:36 Nasal Cannula* 2 28 03/22/24 19:30 98.0 98.0 Intake/Output Intake and Output 03/23/24 07:00 Intake Total 387.5 ml Balance 387.5 ml IV Total 387.5 ml General Appearance: Alert, Oriented X3, moderate distress Lungs: Other (Diffuse wheezing) Cardiovascular: Regular rate, Normal S1, Normal S2 Abdomen: Normal bowel sounds, Soft, No tenderness Extremities: No edema Medications Current Medications Medications Dose Ordered Sig/Shanique Route Start Time Stop Time Status Last Admin Dose Admin Albuterol 2.5 mg Q4HPRN PRN NEB 03/19/24 10:45 03/22/24 13:51 2.5 MG Ipratropium [place] 0.5 mg Q4HPRN PRN NEB 03/19/24 10:45 03/21/24 03:19 0.5 MG Pantoprazole Sodium 40 mg DAILY PO 03/20/24 10:00 03/23/24 10:00 40 MG Patient Own Medication 1 tab QAM PO 03/20/24 07:00 Atorvastatin Calcium 80 mg HS PO 03/19/24 22:00 03/22/24 21:55 80 MG Ondansetron HCl 4 mg Q4HP PRN IV 03/19/24 11:00 Cefepime HCl 50 ml @ 12.5 mls/hr Q12HR IV 03/19/24 22:00 03/23/24 10:08 12.5 MLS/HR Lorazepam 0.5 mg Q8HP PRN IV 03/20/24 14:15 03/21/24 09:26 0.5 MG Azithromycin 250 ml @ 125 mls/hr DAILY@1400 IV 03/21/24 14:00 03/22/24 14:11 125 MLS/HR Apixaban 5 mg BID PO 03/20/24 22:00 03/23/24 10:00 5 MG Ipratropium [place] 0.5 mg Q4HR NEB 03/20/24 22:00 03/23/24 05:56 0.5 MG Acetylcysteine 200 mg Q8HR NEB 03/20/24 22:00 03/23/24 21:59 03/23/24 05:56 200 MG Budesonide 0.5 mg BID NEB 03/20/24 22:00 03/23/24 05:56 0.5 MG Levalbuterol HCl 0.625 mg Q4HR NEB 03/20/24 22:00 03/23/24 05:56 0.625 MG Methylprednisolone Sodium Succinate 60 mg Q8HR IV 03/21/24 06:00 03/23/24 06:23 60 MG Guaifenesin/ Codeine Phosphate 5 ml Q4HPRN PRN PO 03/21/24 13:00 03/21/24 17:42 5 ML Laboratory Results Laboratory Tests 03/20/24 03:23 Urinalysis Test 03/19/24 12:13 Urine Color Yellow (Yellow) Urine Clarity Clear (Clear) Urine pH 6.0 (5.0-9.0) Urine Specific [place] 1.024 (1.001-1.035) Urine Protein 1+ (Negative) H Urine Ketones 2+ (Negative) H Urine Blood Trace /uL (Negative) H Urine Nitrite Negative (Negative) Urine Bilirubin Negative (Negative) Urine Urobilinogen Normal mg/dL (Negative) Urine Leukocyte Esterase Negative /uL (Negative) Urine RBC 67 /hpf (0 - 4) Urine WBC 8 /hpf (0 - 5) Urine Squamous Epithelial Cells None seen /hpf (<5) Urine Bacteria None seen /hpf (None Seen) Urine Mucus Few (None Seen) Urine Glucose 3+ mg/dL (Normal) H Microbiology Microbiology Date/Time Source Procedure Growth Status 03/21/24 09:37 Nose MRSA Screen - Final Complete 03/19/24 09:00 Blood Blood Culture - Preliminary NO GROWTH AFTER 72 HOURS OF INCUBATION. Resulted Assessment/Plan Assessment/Plan Acute hypoxic respiratory failure Chronic respiratory failure on home O2 COPD exacerbation Acute bronchitis Dyslipidemia Ex-smoker Anxiety History of AFib Plan 03/20/2024: Continue cefepime Add Zithromax Continue IV steroids Oxygen as needed Resume the home medications DVT prophylaxis with Lovenox GI prophylaxis with Protonix Ativan p.r.n. anxiety Full code Advance directives discussed for more than 20 minutes Atrial fibrillation: Start Eliquis 5 mg twice a day 03/21/2024: High-flow oxygen Pulmonary consultation IV steroids IV antibiotics Full code Discussed the advance directives again with the patient, she wants full code for now 03/22/2024: Oxymizer oxygen titrate as needed Continue IV antibiotics Continue IV steroids Pulmonary consult is on Eliquis 03/23/2024: Downgrade to telemetry since he is still tachycardic Continue current management of IV antibiotics and steroids and med neb treatments and oxygen Tapered down the oxygen as tolerated Plan discussed with: Patient My Orders Orders - ROBERT ELLIOTT MD Procedure Category Date Status Time Complete Blood Count LAB 03/24/24 Verified 04:00 Comprehensive LAB 03/24/24 Verified Metabolic Panel 04:00 Magnesium LAB 03/24/24 Verified 04:00 Transfer Orders XFER 03/23/24 Transmitted 12:04 Date of Service: Mar 23, 2024 Billing Provider: ROBERT ELLIOTT MD Common Visit Codes: [id number] INP/OBS CARE(HIGH) ROBERT ELLIOTT MD Mar 23, 2024 12:20
--- NOTE | 2024-03-23 21:22 | DVHPN2 ---
Progress Note - Dictate Date Seen: Mar 23, 2024 Medical Necessity Reason Pt with a Central, PICC or Fol: No Subjective Patient seen and examined at bedside. Remains on supplemental oxygen Overnight events reviewed. vital signs Vital Sign Date Time Temp Pulse Resp B/P (MAP) Pulse Ox O2 Delivery O2 Flow Rate FiO2 03/23/24 19:15 97.7 113 23 144/60 (88) 93 97.7 03/23/24 19:15 Nasal Cannula* 2 28 Total Intake and Output 03/22/24 03/22/24 03/23/24 15:00 23:00 07:00 Intake Total 50.0 ml 262.5 ml 75.0 ml Balance 50.0 ml 262.5 ml 75.0 ml medications Current Medications Medications Dose Ordered Sig/Shanique Route Start Time Stop Time Status Last Admin Dose Admin Albuterol 2.5 mg Q4HPRN PRN NEB 03/19/24 10:45 03/22/24 13:51 2.5 MG Ipratropium [place] 0.5 mg Q4HPRN PRN NEB 03/19/24 10:45 03/21/24 03:19 0.5 MG Pantoprazole Sodium 40 mg DAILY PO 03/20/24 10:00 03/23/24 10:00 40 MG Patient Own Medication 1 tab QAM PO 03/20/24 07:00 Atorvastatin Calcium 80 mg HS PO 03/19/24 22:00 03/22/24 21:55 80 MG Ondansetron HCl 4 mg Q4HP PRN IV 03/19/24 11:00 Cefepime HCl 50 ml @ 12.5 mls/hr Q12HR IV 03/19/24 22:00 03/23/24 10:08 12.5 MLS/HR Lorazepam 0.5 mg Q8HP PRN IV 03/20/24 14:15 03/21/24 09:26 0.5 MG Azithromycin 250 ml @ 125 mls/hr DAILY@1400 IV 03/21/24 14:00 03/23/24 14:16 125 MLS/HR Apixaban 5 mg BID PO 03/20/24 22:00 03/23/24 10:00 5 MG Ipratropium [place] 0.5 mg Q4HR NEB 03/20/24 22:00 03/23/24 18:11 0.5 MG Acetylcysteine 200 mg Q8HR NEB 03/20/24 22:00 03/23/24 21:59 03/23/24 05:56 200 MG Budesonide 0.5 mg BID NEB 03/20/24 22:00 03/23/24 05:56 0.5 MG Levalbuterol HCl 0.625 mg Q4HR NEB 03/20/24 22:00 03/23/24 18:11 0.625 MG Guaifenesin/ Codeine Phosphate 5 ml Q4HPRN PRN PO 03/21/24 13:00 03/21/24 17:42 5 ML Methylprednisolone Sodium Succinate 60 mg Q12HR IV 03/23/24 22:00 objective Gen.: Patient lying in bed in no apparent distress. On supplemental oxygen. Head: Normocephalic, atraumatic. Eyes: EOMI/PERRLA. Ears: Normal hearing. Normal anatomy. Neck/trachea: Trachea midline, supple. Nose: Normal external anatomy. Mouth: Moist mucous membranes. Chest: Decreased air entry bilaterally. Bilateral wheezing; no rhonchi. Cardiovascular: Positive S1, positive S2. Regular rate and rhythm. Abdomen: Positive bowel sounds in all 4 quadrants. Soft, non-tender, non- distended. : Deferred. Rectal: Deferred. Skin: Warm, dry. Intact. Extremities: 2+ radial pulses bilaterally. No lower extremity edema. Neuro: Awake, alert, oriented x3. No gross motor or sensory deficits. Cranial nerves II through XII intact. Gait not assessed. laboratory and microbiology Laboratory Tests 03/20/24 03:23 Test 03/20/24 03:23 Range/Units Serum Glucose 141 H 74-106 mg/dL Assessment/Plan Impression: Acute hypoxic respiratory failure AE COPD Wheezing Atelectasis Cough Events: Remains on supplemental O2 at 3 LPM NC Improved O2 requirements - Transitioned to low flow oxygen Continue bronchodilators IV steroids Pulmicort Incentive spirometry Continue antibiotics Maintain euvolemia Monitor renal function Anxiolytic PRN. Patient is slowly improving. He is stable for downgrade from the pulmonary standpoint. Labs and imaging reviewed. Rest of plan as noted below. Plan: Supplemental oxygen Improved O2 requirements - Transitioned to low flow oxygen 3 LPM NC Titrate to keep O2 sats above 92%. Continue bronchodilators. Steroids Continue antibiotics Incentive spirometry Monitor renal function. Monitor electrolytes. Supplement as necessary. Monitor ins and outs. DVT prophylaxis. Prognosis: Guarded given patient's multiple co-morbidities. Rest of plan per hospitalist and other consultants. Thank you Esther Mcneill, BRENDA, for allowing me to participate in this patient's care. Further recommendations will depend on the patient's clinical course. Please do not hesitate to contact me if you have any questions or concerns. This medical document was created using an electronic medical record system with [employer] dictation system. Although these documentations are being carefully reviewed, there may still be some phonetic and typographical changes. The errors are purely typographical, due to imperfection on the software program, and do not reflect any compromise in the patient's medical care. Plan discussed with: Patient, Other (RN) TYSHAWN HANDY MD Mar 23, 2024 21:22
[2024-03-23] MEDS: methylPREDNISolone SOD SUCC 125 MG/2 ML VL IV SCH (22:51)
[2024-03-24] VITALS (16 sets, daily range): BP systolic 116–145; BP diastolic 65–76; PULSE 86–124; RESP 16–24; TEMP 97.5–99.3; O2SAT 90–100
[2024-03-24 06:03] LABS: Basophils # (auto) 0 10 ^3/uL (0-0.2); Basophils % (auto) 0.1 % (0.0-2.0); Eosinophils # (auto) 0 10 ^3/uL (0-0.8); Hematocrit 38.8 % (36.0-46.0); Hemoglobin 12.6 g/dL (12.2-16.2); Lymphocytes # (auto) 0.5 10 ^3/uL (0.4-5.4); Mean Corpuscular Hemoglobin 27.8 pg (28.0-32.0); Mean Corpuscular Hgb Conc. 32.5 g/dL (32.0-36.0); Mean Corpuscular Volume 85.7 fL (80.0-100.0); Monocytes # (auto) 0.2 10 ^3/uL (0-1.3); Monocytes % (auto) 2.8 % (0.0-12.0); Neutrophils # (auto) 5.1 10 ^3/uL (1.6-8.6); Neutrophils % (auto) 88.1 % (37.0-80.0); Nucleated Red Blood Cells % 0.2 %; Platelet Count (auto) 418 10^3/uL (140-450); Red Blood Cells 4.53 10^6/uL (4.0-5.20); Red Cell Distribution Width 15.8 % (11.8-14.3); White Blood Cell 5.8 10^3/uL (4.4-10.8)
[2024-03-24 06:23] LABS: Alanine Aminotransferase 29 U/L (7-40); Alkaline Phosphatase 55 U/L (46-116); Anion Gap 3 (5-15); Aspartate Aminotransferase 52 U/L (13-40); BUN/Creatinine Ratio 31.4 (10.0-20.0); Blood Urea Nitrogen 16 mg/dL (9-23); Calcium 8.7 mg/dL (8.7-10.4); Carbon Dioxide 38 mmol/L (20-31); Chloride 97 mmol/L (98-107); Glucose 148 mg/dL (74-106); Magnesium 2.4 mg/dL (1.6-2.6); Potassium 4.3 mmol/L (3.5-5.1); Sodium 138 mmol/L (136-145)
[2024-03-24 06:24] LABS: Bilirubin, Total 0.5 mg/dL (0.2-1.0); Total Protein 6.1 g/dL (5.7-8.2)
--- NOTE | 2024-03-24 10:23 | DVHPN2 ---
Subjective She is still having episodes of hypoxia She took the oxygen off now and she became very hypoxic and tachycardic Complains of anxiety Changes from previous H/P or p: Changes Eyes: No Pain, No Vision change, No Conjunctivae inflammation, No Eyelid inflammation, No Other, No Redness ENT: No Ear pain, No Ear discharge, No Nose pain, No Nose discharge, No Nose congestion, No Mouth pain, No Mouth swelling, No Throat pain, No Throat swelling, No Other Cardiovascular: No Chest Pain, No Palpitations, No Orthopnea, No Paroxysmal Noc. Dyspnea, No Edema, No Lt Headedness, No Other Respiratory: Cough; No Dry; Shortness of breath, SOB with excertion, Wheezing; No Hemoptysis, No Pleuritic Pain, No Sputum, No Other Gastrointestinal: No Nausea, No Vomiting, No Abdominal Pain, No Diarrhea, No Constipation, No Melena, No Hematochezia, No Other Genitourinary: No Dysuria, No Frequency, No Incontinence, No Hematuria, No Retention, No Other Skin: No Rash, No Lesions, No Jaundice, No Bruising, No Other Objective Vitals Vital Signs Date Time Temp Pulse Resp B/P (MAP) Pulse Ox O2 Delivery O2 Flow Rate FiO2 03/24/24 09:00 97.8 104 16 129/71 (90) 98 97.8 03/24/24 06:30 Nasal Cannula 3.0 03/24/24 06:30 32 Intake/Output Intake and Output 03/24/24 07:00 Intake Total 525.0 ml Output Total 1 ml Balance 524.0 ml Intake Oral 200 ml IV Total 325.0 ml Output Urine Total 1 ml General Appearance: Alert, Oriented X3, moderate distress Lungs: Other (Diffuse wheezing) Cardiovascular: Regular rate, Normal S1, Normal S2 Abdomen: Normal bowel sounds, Soft, No tenderness Extremities: No edema Medications Current Medications Medications Dose Ordered Sig/Shanique Route Start Time Stop Time Status Last Admin Dose Admin Albuterol 2.5 mg Q4HPRN PRN NEB 03/19/24 10:45 03/22/24 13:51 2.5 MG Ipratropium [place] 0.5 mg Q4HPRN PRN NEB 03/19/24 10:45 03/21/24 03:19 0.5 MG Pantoprazole Sodium 40 mg DAILY PO 03/20/24 10:00 03/23/24 10:00 40 MG Patient Own Medication 1 tab QAM PO 03/20/24 07:00 Atorvastatin Calcium 80 mg HS PO 03/19/24 22:00 03/23/24 22:50 80 MG Ondansetron HCl 4 mg Q4HP PRN IV 03/19/24 11:00 Cefepime HCl 50 ml @ 12.5 mls/hr Q12HR IV 03/19/24 22:00 03/23/24 22:50 12.5 MLS/HR Lorazepam 0.5 mg Q8HP PRN IV 03/20/24 14:15 03/24/24 03:18 0.5 MG Azithromycin 250 ml @ 125 mls/hr DAILY@1400 IV 03/21/24 14:00 03/23/24 14:16 125 MLS/HR Apixaban 5 mg BID PO 03/20/24 22:00 03/23/24 22:50 5 MG Ipratropium [place] 0.5 mg Q4HR NEB 03/20/24 22:00 03/24/24 10:13 0.5 MG Budesonide 0.5 mg BID NEB 03/20/24 22:00 03/24/24 06:30 0.5 MG Levalbuterol HCl 0.625 mg Q4HR NEB 03/20/24 22:00 03/24/24 10:12 0.625 MG Guaifenesin/ Codeine Phosphate 5 ml Q4HPRN PRN PO 03/21/24 13:00 03/21/24 17:42 5 ML Methylprednisolone Sodium Succinate 60 mg Q12HR IV 03/23/24 22:00 03/23/24 22:51 60 MG Laboratory Results Laboratory Tests 03/24/24 05:24 Chemistry Test 03/24/24 05:24 Albumin 4.0 g/dL (3.2-4.8) Calcium Level 8.7 mg/dL (8.7-10.4) Magnesium Level 2.4 mg/dL (1.6-2.6) Total Protein 6.1 g/dL (5.7-8.2) LFT Test 03/24/24 05:24 Alanine Aminotransferase (ALT) 29 U/L (7-40) Alkaline Phosphatase 55 U/L (46-116) Aspartate Amino Transferase (AST) 52 U/L (13-40) H Total Bilirubin 0.5 mg/dL (0.2-1.0) Urinalysis Test 03/19/24 12:13 Urine Color Yellow (Yellow) Urine Clarity Clear (Clear) Urine pH 6.0 (5.0-9.0) Urine Specific [place] 1.024 (1.001-1.035) Urine Protein 1+ (Negative) H Urine Ketones 2+ (Negative) H Urine Blood Trace /uL (Negative) H Urine Nitrite Negative (Negative) Urine Bilirubin Negative (Negative) Urine Urobilinogen Normal mg/dL (Negative) Urine Leukocyte Esterase Negative /uL (Negative) Urine RBC 67 /hpf (0 - 4) Urine WBC 8 /hpf (0 - 5) Urine Squamous Epithelial Cells None seen /hpf (<5) Urine Bacteria None seen /hpf (None Seen) Urine Mucus Few (None Seen) Urine Glucose 3+ mg/dL (Normal) H Microbiology Microbiology Date/Time Source Procedure Growth Status 03/21/24 09:37 Nose MRSA Screen - Final Complete 03/19/24 09:00 Blood Blood Culture - Final NO GROWTH AFTER 5 DAYS OF INCUBATION. Complete Assessment/Plan Assessment/Plan Acute hypoxic respiratory failure Chronic respiratory failure on home O2 COPD exacerbation Acute bronchitis Dyslipidemia Ex-smoker Anxiety History of AFib Plan 03/20/2024: Continue cefepime Add Zithromax Continue IV steroids Oxygen as needed Resume the home medications DVT prophylaxis with Lovenox GI prophylaxis with Protonix Ativan p.r.n. anxiety Full code Advance directives discussed for more than 20 minutes Atrial fibrillation: Start Eliquis 5 mg twice a day 03/21/2024: High-flow oxygen Pulmonary consultation IV steroids IV antibiotics Full code Discussed the advance directives again with the patient, she wants full code for now 03/22/2024: Oxymizer oxygen titrate as needed Continue IV antibiotics Continue IV steroids Pulmonary consult is on Eliquis 03/23/2024: Downgrade to telemetry since he is still tachycardic Continue current management of IV antibiotics and steroids and med neb treatments and oxygen Tapered down the oxygen as tolerated 03/24/2024: Change Ativan to Xanax p.r.n. for anxiety Order blood gas on oxygen to assess her CO2 If there is CO2 retention we will try BiPAP Full code Cefepime and Zithromax IV steroids Oxygen Med nebs as needed Plan discussed with: Patient My Orders Orders - ROBERT ELLIOTT MD Procedure Category Date Status Time Transfer Orders XFER 03/23/24 Transmitted 12:04 Methylprednisolone PHA 03/23/24 In Process Sod Succ (Solu Medrol 22:00 Date of Service: Mar 24, 2024 Billing Provider: ROBERT ELLIOTT MD Common Visit Codes: [id number] INP/OBS CARE(HIGH) ROBERT ELLIOTT MD Mar 24, 2024 10:23
[2024-03-24] MEDS: ALPRAZolam 0.5 MG TAB PO PRN (10:49)
[2024-03-24 10:56] LABS: Base Excess 9.2 mmol/L (-2.0-3.0)
--- NOTE | 2024-03-24 21:01 | DVHPN2 ---
Progress Note - Dictate Date Seen: Mar 24, 2024 Medical Necessity Reason Pt with a Central, PICC or Fol: No Subjective Patient seen and examined at bedside. Remains on supplemental oxygen Overnight events reviewed. vital signs Vital Sign Date Time Temp Pulse Resp B/P (MAP) Pulse Ox O2 Delivery O2 Flow Rate FiO2 03/24/24 17:00 97.8 109 22 136/68 (90) 96 97.8 03/24/24 08:00 Nasal Cannula* 3 32 Total Intake and Output 03/23/24 03/23/24 03/24/24 15:00 23:00 07:00 Intake Total 25.0 ml 250 ml 250 ml Output Total 1 ml Balance 25.0 ml 250 ml 249 ml medications Current Medications Medications Dose Ordered Sig/Shanique Route Start Time Stop Time Status Last Admin Dose Admin Albuterol 2.5 mg Q4HPRN PRN NEB 03/19/24 10:45 03/22/24 13:51 2.5 MG Ipratropium [place] 0.5 mg Q4HPRN PRN NEB 03/19/24 10:45 03/21/24 03:19 0.5 MG Pantoprazole Sodium 40 mg DAILY PO 03/20/24 10:00 03/24/24 10:49 40 MG Patient Own Medication 1 tab QAM PO 03/20/24 07:00 Atorvastatin Calcium 80 mg HS PO 03/19/24 22:00 03/23/24 22:50 80 MG Ondansetron HCl 4 mg Q4HP PRN IV 03/19/24 11:00 Cefepime HCl 50 ml @ 12.5 mls/hr Q12HR IV 03/19/24 22:00 03/24/24 10:50 12.5 MLS/HR Azithromycin 250 ml @ 125 mls/hr DAILY@1400 IV 03/21/24 14:00 03/24/24 15:08 125 MLS/HR Apixaban 5 mg BID PO 03/20/24 22:00 03/24/24 10:49 5 MG Ipratropium [place] 0.5 mg Q4HR NEB 03/20/24 22:00 03/24/24 13:35 0.5 MG Budesonide 0.5 mg BID NEB 03/20/24 22:00 03/24/24 06:30 0.5 MG Levalbuterol HCl 0.625 mg Q4HR NEB 03/20/24 22:00 03/24/24 13:35 0.625 MG Guaifenesin/ Codeine Phosphate 5 ml Q4HPRN PRN PO 03/21/24 13:00 03/21/24 17:42 5 ML Methylprednisolone Sodium Succinate 60 mg Q12HR IV 03/23/24 22:00 03/24/24 10:50 60 MG Alprazolam 0.5 mg Q8HPRN PRN PO 03/24/24 10:30 03/24/24 10:49 0.5 MG objective Gen.: Patient lying in bed in no apparent distress. On supplemental oxygen. Head: Normocephalic, atraumatic. Eyes: EOMI/PERRLA. Ears: Normal hearing. Normal anatomy. Neck/trachea: Trachea midline, supple. Nose: Normal external anatomy. Mouth: Moist mucous membranes. Chest: Decreased air entry bilaterally. Bilateral wheezing; no rhonchi. Cardiovascular: Positive S1, positive S2. Regular rate and rhythm. Abdomen: Positive bowel sounds in all 4 quadrants. Soft, non-tender, non- distended. : Deferred. Rectal: Deferred. Skin: Warm, dry. Intact. Extremities: 2+ radial pulses bilaterally. No lower extremity edema. Neuro: Awake, alert, oriented x3. No gross motor or sensory deficits. Cranial nerves II through XII intact. Gait not assessed. laboratory and microbiology Laboratory Tests 03/24/24 05:24 Test 03/24/24 05:24 Range/Units Serum Glucose 148 H 74-106 mg/dL Assessment/Plan Impression: Acute hypoxic respiratory failure AE COPD Wheezing Atelectasis Cough Events: Remains on supplemental O2 at 2.5 LPM NC Taper O2 as tolerated Continue bronchodilators Continue steroids Incentive spirometry Continue IV antibiotics Anxiolytic PRN. Labs and imaging reviewed. Rest of plan as noted below. Plan: Supplemental oxygen 2.5 LPM NC Titrate to keep O2 sats above 92%. Continue bronchodilators. Steroids Continue antibiotics Incentive spirometry Monitor renal function. Monitor electrolytes. Supplement as necessary. Monitor ins and outs. DVT prophylaxis. Prognosis: Guarded given patient's multiple co-morbidities. Rest of plan per hospitalist and other consultants. Thank you Esther Mcneill NP, for allowing me to participate in this patient's care. Further recommendations will depend on the patient's clinical course. Please do not hesitate to contact me if you have any questions or concerns. This medical document was created using an electronic medical record system with [employer] dictation system. Although these documentations are being carefully reviewed, there may still be some phonetic and typographical changes. The errors are purely typographical, due to imperfection on the software program, and do not reflect any compromise in the patient's medical care. Dietary Evaluation Review Comments: 1) Continue to monitor pt PO intake to meet at least 75% of meals 2) If pt appetite remains poor consider Ensure Enlive TID 3) Continue current plan of care Expected Outcomes/Goals: 1) Pt appetite to improve 2) F/U in 3-5 days Plan discussed with: Patient, Other (GOLDY Baird) TYSHAWN HANDY MD Mar 24, 2024 21:01
[2024-03-25] VITALS (17 sets, daily range): BP systolic 123–142; BP diastolic 63–77; PULSE 107–124; RESP 14–20; TEMP 97.6–98.7; O2SAT 14–100
[2024-03-25 07:41] LABS: Calcium 9.1 mg/dL (8.7-10.4); Chloride 98 mmol/L (98-107); Potassium 5.1 mmol/L (3.5-5.1); Sodium 140 mmol/L (136-145)
[2024-03-25 07:47] LABS: BUN/Creatinine Ratio 24.5 (10.0-20.0); Blood Urea Nitrogen 12 mg/dL (9-23); Glucose 127 mg/dL (74-106)
[2024-03-25 08:01] LABS: Anion Gap 1.99999 (5-15)
[2024-03-25 08:02] LABS: Carbon Dioxide > 40 mmol/L (20-31)
--- NOTE | 2024-03-25 15:05 | DVHPN2 ---
Subjective Better On 3 L nasal cannula Changes from previous H/P or p: Changes Eyes: No Pain, No Vision change, No Conjunctivae inflammation, No Eyelid inflammation, No Other, No Redness ENT: No Ear pain, No Ear discharge, No Nose pain, No Nose discharge, No Nose congestion, No Mouth pain, No Mouth swelling, No Throat pain, No Throat swelling, No Other Cardiovascular: No Chest Pain, No Palpitations, No Orthopnea, No Paroxysmal Noc. Dyspnea, No Edema, No Lt Headedness, No Other Respiratory: Cough; No Dry; Shortness of breath, SOB with excertion, Wheezing; No Hemoptysis, No Pleuritic Pain, No Sputum, No Other Gastrointestinal: No Nausea, No Vomiting, No Abdominal Pain, No Diarrhea, No Constipation, No Melena, No Hematochezia, No Other Genitourinary: No Dysuria, No Frequency, No Incontinence, No Hematuria, No Retention, No Other Skin: No Rash, No Lesions, No Jaundice, No Bruising, No Other Objective Vitals Vital Signs Date Time Temp Pulse Resp B/P (MAP) Pulse Ox O2 Delivery O2 Flow Rate FiO2 03/25/24 12:17 97.7 112 20 138/74 (95) 99 97.7 03/25/24 09:18 Nasal Cannula* 2 28 Intake/Output Intake and Output 03/25/24 07:00 Intake Total 1480 ml Output Total 1 ml Balance 1479 ml Intake Oral 1180 ml IV Total 300 ml Output Urine Total 1 ml # Voids 3 General Appearance: Alert, Oriented X3, moderate distress Lungs: Other (Diffuse wheezing) Cardiovascular: Regular rate, Normal S1, Normal S2 Abdomen: Normal bowel sounds, Soft, No tenderness Extremities: No edema Medications Current Medications Medications Dose Ordered Sig/Shanique Route Start Time Stop Time Status Last Admin Dose Admin Albuterol 2.5 mg Q4HPRN PRN NEB 03/19/24 10:45 03/22/24 13:51 2.5 MG Ipratropium [place] 0.5 mg Q4HPRN PRN NEB 03/19/24 10:45 03/21/24 03:19 0.5 MG Pantoprazole Sodium 40 mg DAILY PO 03/20/24 10:00 03/25/24 09:07 40 MG Patient Own Medication 1 tab QAM PO 03/20/24 07:00 Atorvastatin Calcium 80 mg HS PO 03/19/24 22:00 03/24/24 21:04 80 MG Ondansetron HCl 4 mg Q4HP PRN IV 03/19/24 11:00 Cefepime HCl 50 ml @ 12.5 mls/hr Q12HR IV 03/19/24 22:00 03/25/24 09:08 12.5 MLS/HR Azithromycin 250 ml @ 125 mls/hr DAILY@1400 IV 03/21/24 14:00 03/25/24 14:00 125 MLS/HR Apixaban 5 mg BID PO 03/20/24 22:00 03/25/24 10:06 5 MG Ipratropium [place] 0.5 mg Q4HR NEB 03/20/24 22:00 03/25/24 09:18 0.5 MG Budesonide 0.5 mg BID NEB 03/20/24 22:00 03/25/24 06:32 0.5 MG Levalbuterol HCl 0.625 mg Q4HR NEB 03/20/24 22:00 03/25/24 09:18 0.625 MG Guaifenesin/ Codeine Phosphate 5 ml Q4HPRN PRN PO 03/21/24 13:00 03/25/24 13:16 5 ML Methylprednisolone Sodium Succinate 60 mg Q12HR IV 03/23/24 22:00 03/25/24 09:07 60 MG Alprazolam 0.5 mg Q8HPRN PRN PO 03/24/24 10:30 03/24/24 10:49 0.5 MG Laboratory Results Laboratory Tests 03/24/24 05:24 03/25/24 06:27 Chemistry Test 03/25/24 06:27 Calcium Level 9.1 mg/dL (8.7-10.4) Urinalysis Test 03/19/24 12:13 Urine Color Yellow (Yellow) Urine Clarity Clear (Clear) Urine pH 6.0 (5.0-9.0) Urine Specific [place] 1.024 (1.001-1.035) Urine Protein 1+ (Negative) H Urine Ketones 2+ (Negative) H Urine Blood Trace /uL (Negative) H Urine Nitrite Negative (Negative) Urine Bilirubin Negative (Negative) Urine Urobilinogen Normal mg/dL (Negative) Urine Leukocyte Esterase Negative /uL (Negative) Urine RBC 67 /hpf (0 - 4) Urine WBC 8 /hpf (0 - 5) Urine Squamous Epithelial Cells None seen /hpf (<5) Urine Bacteria None seen /hpf (None Seen) Urine Mucus Few (None Seen) Urine Glucose 3+ mg/dL (Normal) H Microbiology Microbiology Date/Time Source Procedure Growth Status 03/21/24 09:37 Nose MRSA Screen - Final Complete 03/19/24 09:00 Blood Blood Culture - Final NO GROWTH AFTER 5 DAYS OF INCUBATION. Complete Assessment/Plan Assessment/Plan Acute hypoxic respiratory failure Chronic respiratory failure on home O2 COPD exacerbation Acute bronchitis Dyslipidemia Ex-smoker Anxiety History of AFib Plan 03/20/2024: Continue cefepime Add Zithromax Continue IV steroids Oxygen as needed Resume the home medications DVT prophylaxis with Lovenox GI prophylaxis with Protonix Ativan p.r.n. anxiety Full code Advance directives discussed for more than 20 minutes Atrial fibrillation: Start Eliquis 5 mg twice a day 03/21/2024: High-flow oxygen Pulmonary consultation IV steroids IV antibiotics Full code Discussed the advance directives again with the patient, she wants full code for now 03/22/2024: Oxymizer oxygen titrate as needed Continue IV antibiotics Continue IV steroids Pulmonary consult is on Eliquis 03/23/2024: Downgrade to telemetry since he is still tachycardic Continue current management of IV antibiotics and steroids and med neb treatments and oxygen Tapered down the oxygen as tolerated 03/24/2024: Change Ativan to Xanax p.r.n. for anxiety Order blood gas on oxygen to assess her CO2 If there is CO2 retention we will try BiPAP Full code Cefepime and Zithromax IV steroids Oxygen Med nebs as needed 03/25/2024: Continue the current management She is doing little better Continue IV steroids Continue Eliquis Continue IV antibiotics Full code Plan discussed with: Patient My Orders Orders - ROBERT ELLIOTT MD Procedure Category Date Status Time Pt Request For Service PT 03/25/24 Logged 10:13 Date of Service: Mar 25, 2024 Billing Provider: ROBERT ELLIOTT MD Common Visit Codes: [id number] INP/OBS CARE(HIGH) ROBERT ELLIOTT MD Mar 25, 2024 15:05
--- NOTE | 2024-03-25 22:30 | DVHPN2 ---
Progress Note - Dictate Date Seen: Mar 25, 2024 Medical Necessity Reason Pt with a Central, PICC or Fol: No Subjective Patient seen and examined at bedside. Remains on supplemental oxygen Overnight events reviewed. vital signs Vital Sign Date Time Temp Pulse Resp B/P (MAP) Pulse Ox O2 Delivery O2 Flow Rate FiO2 03/25/24 21:00 98.0 108 18 123/63 (83) 97 98.0 03/25/24 20:00 Nasal Cannula* 3 32 Total Intake and Output 03/24/24 03/24/24 03/25/24 15:00 23:00 07:00 Intake Total 50 ml 1130 ml 300 ml Output Total 1 ml Balance 50 ml 1129 ml 300 ml medications Current Medications Medications Dose Ordered Sig/Shanique Route Start Time Stop Time Status Last Admin Dose Admin Albuterol 2.5 mg Q4HPRN PRN NEB 03/19/24 10:45 03/22/24 13:51 2.5 MG Ipratropium [place] 0.5 mg Q4HPRN PRN NEB 03/19/24 10:45 03/21/24 03:19 0.5 MG Pantoprazole Sodium 40 mg DAILY PO 03/20/24 10:00 03/25/24 09:07 40 MG Patient Own Medication 1 tab QAM PO 03/20/24 07:00 Atorvastatin Calcium 80 mg HS PO 03/19/24 22:00 03/25/24 21:54 80 MG Ondansetron HCl 4 mg Q4HP PRN IV 03/19/24 11:00 Cefepime HCl 50 ml @ 12.5 mls/hr Q12HR IV 03/19/24 22:00 03/25/24 21:46 12.5 MLS/HR Azithromycin 250 ml @ 125 mls/hr DAILY@1400 IV 03/21/24 14:00 03/25/24 14:00 125 MLS/HR Apixaban 5 mg BID PO 03/20/24 22:00 03/25/24 21:54 5 MG Ipratropium [place] 0.5 mg Q4HR NEB 03/20/24 22:00 03/25/24 19:15 0.5 MG Budesonide 0.5 mg BID NEB 03/20/24 22:00 03/25/24 06:32 0.5 MG Levalbuterol HCl 0.625 mg Q4HR NEB 03/20/24 22:00 03/25/24 19:15 0.625 MG Guaifenesin/ Codeine Phosphate 5 ml Q4HPRN PRN PO 03/21/24 13:00 03/25/24 13:16 5 ML Methylprednisolone Sodium Succinate 60 mg Q12HR IV 03/23/24 22:00 03/25/24 21:51 60 MG Alprazolam 0.5 mg Q8HPRN PRN PO 03/24/24 10:30 03/24/24 10:49 0.5 MG objective Gen.: Patient lying in bed in no apparent distress. On supplemental oxygen. Head: Normocephalic, atraumatic. Eyes: EOMI/PERRLA. Ears: Normal hearing. Normal anatomy. Neck/trachea: Trachea midline, supple. Nose: Normal external anatomy. Mouth: Moist mucous membranes. Chest: Decreased air entry bilaterally. Bilateral wheezing; no rhonchi. Cardiovascular: Positive S1, positive S2. Regular rate and rhythm. Abdomen: Positive bowel sounds in all 4 quadrants. Soft, non-tender, non- distended. : Deferred. Rectal: Deferred. Skin: Warm, dry. Intact. Extremities: 2+ radial pulses bilaterally. No lower extremity edema. Neuro: Awake, alert, oriented x3. No gross motor or sensory deficits. Cranial nerves II through XII intact. Gait not assessed. laboratory and microbiology Laboratory Tests 03/25/24 06:27 03/24/24 05:24 Test 03/25/24 06:27 Range/Units Serum Glucose 127 H 74-106 mg/dL Assessment/Plan Impression: Acute hypoxic respiratory failure AE COPD Wheezing Atelectasis Cough Events: Remains on supplemental O2 at 3 LPM NC Taper O2 as tolerated Continue bronchodilators/Pulmicort Continue IV steroids Continue antibiotics Incentive spirometry Antitussive for cough Eliquis BID for DVT prophylaxis. Protonix for GI prophylaxis Labs and imaging reviewed. Rest of plan as noted below. Plan: Supplemental oxygen Titrate to keep O2 sats above 92%. Continue bronchodilators. Steroids Continue antibiotics Incentive spirometry Monitor renal function. Monitor electrolytes. Supplement as necessary. Monitor ins and outs. Eliquis BID for DVT prophylaxis. Protonix for GI prophylaxis Prognosis: Guarded given patient's multiple co-morbidities. Rest of plan per hospitalist and other consultants. Thank you Esther Juat, GENERAL ASSISTANT, for allowing me to participate in this patient's care. Further recommendations will depend on the patient's clinical course. Please do not hesitate to contact me if you have any questions or concerns. This medical document was created using an electronic medical record system with [employer] dictation system. Although these documentations are being carefully reviewed, there may still be some phonetic and typographical changes. The errors are purely typographical, due to imperfection on the software program, and do not reflect any compromise in the patient's medical care. Dietary Evaluation Review Comments: 1) Continue to monitor pt PO intake to meet at least 75% of meals 2) If pt appetite remains poor consider Ensure Enlive TID 3) Continue current plan of care Expected Outcomes/Goals: 1) Pt appetite to improve 2) F/U in 3-5 days Plan discussed with: Patient, Other (GOLDY Hutchins) TYSHAWN HANDY MD Mar 25, 2024 22:30
[2024-03-26] VITALS (14 sets, daily range): BP systolic 114–160; BP diastolic 61–81; PULSE 95–121; RESP 16–20; TEMP 97.5–98; O2SAT 93–100
--- NOTE | 2024-03-26 10:53 | DVHPN2 ---
Subjective She has been refusing medications this morning She says she does not want to talk to anyone right now because she is just upset On 3 L nasal cannula Changes from previous H/P or p: Changes Eyes: No Pain, No Vision change, No Conjunctivae inflammation, No Eyelid inflammation, No Other, No Redness ENT: No Ear pain, No Ear discharge, No Nose pain, No Nose discharge, No Nose congestion, No Mouth pain, No Mouth swelling, No Throat pain, No Throat swelling, No Other Cardiovascular: No Chest Pain, No Palpitations, No Orthopnea, No Paroxysmal Noc. Dyspnea, No Edema, No Lt Headedness, No Other Respiratory: Cough; No Dry; Shortness of breath, SOB with excertion, Wheezing; No Hemoptysis, No Pleuritic Pain, No Sputum, No Other Gastrointestinal: No Nausea, No Vomiting, No Abdominal Pain, No Diarrhea, No Constipation, No Melena, No Hematochezia, No Other Genitourinary: No Dysuria, No Frequency, No Incontinence, No Hematuria, No Retention, No Other Skin: No Rash, No Lesions, No Jaundice, No Bruising, No Other Objective Vitals Vital Signs Date Time Temp Pulse Resp B/P (MAP) Pulse Ox O2 Delivery O2 Flow Rate FiO2 03/26/24 08:50 97.9 107 17 129/70 (89) 97 97.9 03/26/24 07:42 Nasal Cannula* 3 32 Intake/Output Intake and Output 03/26/24 07:00 Intake Total 2090 ml Output Total 900 ml Balance 1190 ml Intake Oral 1790 ml IV Total 300 ml Output Urine Total 900 ml # Voids 4 General Appearance: Alert, Oriented X3, moderate distress Lungs: Other (Diffuse wheezing) Cardiovascular: Regular rate, Normal S1, Normal S2 Abdomen: Normal bowel sounds, Soft, No tenderness Extremities: No edema Medications Current Medications Medications Dose Ordered Sig/Shanique Route Start Time Stop Time Status Last Admin Dose Admin Albuterol 2.5 mg Q4HPRN PRN NEB 03/19/24 10:45 03/22/24 13:51 2.5 MG Ipratropium [place] 0.5 mg Q4HPRN PRN NEB 03/19/24 10:45 03/21/24 03:19 0.5 MG Pantoprazole Sodium 40 mg DAILY PO 03/20/24 10:00 03/25/24 09:07 40 MG Patient Own Medication 1 tab QAM PO 03/20/24 07:00 Atorvastatin Calcium 80 mg HS PO 03/19/24 22:00 03/25/24 21:54 80 MG Ondansetron HCl 4 mg Q4HP PRN IV 03/19/24 11:00 Cefepime HCl 50 ml @ 12.5 mls/hr Q12HR IV 03/19/24 22:00 03/25/24 21:46 12.5 MLS/HR Azithromycin 250 ml @ 125 mls/hr DAILY@1400 IV 03/21/24 14:00 03/25/24 14:00 125 MLS/HR Apixaban 5 mg BID PO 03/20/24 22:00 03/25/24 21:54 5 MG Ipratropium [place] 0.5 mg Q4HR NEB 03/20/24 22:00 03/25/24 19:15 0.5 MG Budesonide 0.5 mg BID NEB 03/20/24 22:00 03/26/24 07:39 0.5 MG Levalbuterol HCl 0.625 mg Q4HR NEB 03/20/24 22:00 03/26/24 07:39 0.625 MG Guaifenesin/ Codeine Phosphate 5 ml Q4HPRN PRN PO 03/21/24 13:00 03/25/24 13:16 5 ML Methylprednisolone Sodium Succinate 60 mg Q12HR IV 03/23/24 22:00 03/25/24 21:51 60 MG Alprazolam 0.5 mg Q8HPRN PRN PO 03/24/24 10:30 03/26/24 05:03 0.5 MG Laboratory Results Laboratory Tests 03/24/24 05:24 03/25/24 06:27 Urinalysis Test 03/19/24 12:13 Urine Color Yellow (Yellow) Urine Clarity Clear (Clear) Urine pH 6.0 (5.0-9.0) Urine Specific [place] 1.024 (1.001-1.035) Urine Protein 1+ (Negative) H Urine Ketones 2+ (Negative) H Urine Blood Trace /uL (Negative) H Urine Nitrite Negative (Negative) Urine Bilirubin Negative (Negative) Urine Urobilinogen Normal mg/dL (Negative) Urine Leukocyte Esterase Negative /uL (Negative) Urine RBC 67 /hpf (0 - 4) Urine WBC 8 /hpf (0 - 5) Urine Squamous Epithelial Cells None seen /hpf (<5) Urine Bacteria None seen /hpf (None Seen) Urine Mucus Few (None Seen) Urine Glucose 3+ mg/dL (Normal) H Microbiology Microbiology Date/Time Source Procedure Growth Status 03/21/24 09:37 Nose MRSA Screen - Final Complete 03/19/24 09:00 Blood Blood Culture - Final NO GROWTH AFTER 5 DAYS OF INCUBATION. Complete Assessment/Plan Assessment/Plan Acute hypoxic respiratory failure Chronic respiratory failure on home O2 COPD exacerbation Acute bronchitis Dyslipidemia Ex-smoker Anxiety History of AFib Plan 03/20/2024: Continue cefepime Add Zithromax Continue IV steroids Oxygen as needed Resume the home medications DVT prophylaxis with Lovenox GI prophylaxis with Protonix Ativan p.r.n. anxiety Full code Advance directives discussed for more than 20 minutes Atrial fibrillation: Start Eliquis 5 mg twice a day 03/21/2024: High-flow oxygen Pulmonary consultation IV steroids IV antibiotics Full code Discussed the advance directives again with the patient, she wants full code for now 03/22/2024: Oxymizer oxygen titrate as needed Continue IV antibiotics Continue IV steroids Pulmonary consult is on Eliquis 03/23/2024: Downgrade to telemetry since he is still tachycardic Continue current management of IV antibiotics and steroids and med neb treatments and oxygen Tapered down the oxygen as tolerated 03/24/2024: Change Ativan to Xanax p.r.n. for anxiety Order blood gas on oxygen to assess her CO2 If there is CO2 retention we will try BiPAP Full code Cefepime and Zithromax IV steroids Oxygen Med nebs as needed 03/25/2024: Continue the current management She is doing little better Continue IV steroids Continue Eliquis Continue IV antibiotics Full code 03/26/2024: Continue IV steroids Oxygen as needed Med neb treatments as needed New IV antibiotics Plan discussed with: Patient Date of Service: Mar 26, 2024 Billing Provider: ROBERT ELLIOTT MD Common Visit Codes: [id number] INP/OBS CARE(HIGH) ROBERT ELLIOTT MD Mar 26, 2024 10:53
[2024-03-26] MEDS: methylPREDNISolone SOD SUCC 125 MG/2 ML VL IV SCH (22:00)
--- NOTE | 2024-03-26 23:19 | DVHPN2 ---
Progress Note - Dictate Date Seen: Mar 26, 2024 Medical Necessity Reason Pt with a Central, PICC or Fol: No Subjective Patient seen and examined at bedside. Remains on supplemental oxygen Overnight events reviewed. vital signs Vital Sign Date Time Temp Pulse Resp B/P (MAP) Pulse Ox O2 Delivery O2 Flow Rate FiO2 03/26/24 21:00 97.6 113 19 127/61 (83) 97 97.6 03/26/24 20:00 Nasal Cannula* 2 28 Total Intake and Output 03/25/24 03/25/24 03/26/24 15:00 23:00 07:00 Intake Total 290 ml 1200 ml 600 ml Output Total 900 ml Balance 290 ml 1200 ml -300 ml medications Current Medications Medications Dose Ordered Sig/Shanique Route Start Time Stop Time Status Last Admin Dose Admin Albuterol 2.5 mg Q4HPRN PRN NEB 03/19/24 10:45 03/22/24 13:51 2.5 MG Ipratropium [place] 0.5 mg Q4HPRN PRN NEB 03/19/24 10:45 03/21/24 03:19 0.5 MG Pantoprazole Sodium 40 mg DAILY PO 03/20/24 10:00 03/25/24 09:07 40 MG Patient Own Medication 1 tab QAM PO 03/20/24 07:00 Atorvastatin Calcium 80 mg HS PO 03/19/24 22:00 03/25/24 21:54 80 MG Ondansetron HCl 4 mg Q4HP PRN IV 03/19/24 11:00 Apixaban 5 mg BID PO 03/20/24 22:00 03/25/24 21:54 5 MG Ipratropium [place] 0.5 mg Q4HR NEB 03/20/24 22:00 03/26/24 19:23 0.5 MG Budesonide 0.5 mg BID NEB 03/20/24 22:00 03/26/24 19:23 0.5 MG Levalbuterol HCl 0.625 mg Q4HR NEB 03/20/24 22:00 03/26/24 19:23 0.625 MG Guaifenesin/ Codeine Phosphate 5 ml Q4HPRN PRN PO 03/21/24 13:00 03/25/24 13:16 5 ML Alprazolam 0.5 mg Q8HPRN PRN PO 03/24/24 10:30 03/26/24 05:03 0.5 MG Methylprednisolone Sodium Succinate 40 mg Q12HR IV 03/26/24 22:00 objective Gen.: Patient lying in bed in no apparent distress. On supplemental oxygen. Head: Normocephalic, atraumatic. Eyes: EOMI/PERRLA. Ears: Normal hearing. Normal anatomy. Neck/trachea: Trachea midline, supple. Nose: Normal external anatomy. Mouth: Moist mucous membranes. Chest: Decreased air entry bilaterally. Bilateral wheezing; no rhonchi. Cardiovascular: Positive S1, positive S2. Regular rate and rhythm. Abdomen: Positive bowel sounds in all 4 quadrants. Soft, non-tender, non- distended. : Deferred. Rectal: Deferred. Skin: Warm, dry. Intact. Extremities: 2+ radial pulses bilaterally. No lower extremity edema. Neuro: Awake, alert, oriented x3. No gross motor or sensory deficits. Cranial nerves II through XII intact. Gait not assessed. laboratory and microbiology Laboratory Tests 03/25/24 06:27 03/24/24 05:24 Test 03/25/24 06:27 Range/Units Serum Glucose 127 H 74-106 mg/dL Assessment/Plan Impression: Acute hypoxic respiratory failure AE COPD Wheezing Atelectasis Cough Events: Remains on supplemental O2 at 2.5 LPM NC Taper O2 as tolerated Continue bronchodilators/Pulmicort Continue IV steroids, tapered down. Continue IV antibiotics Incentive spirometry Antitussive for cough Note, pt is refusing medications. Counseled on risks. Eliquis BID for DVT prophylaxis. Protonix for GI prophylaxis Labs and imaging reviewed. Rest of plan as noted below. Plan: Supplemental oxygen Titrate to keep O2 sats above 92%. Continue bronchodilators. Steroids Continue antibiotics Incentive spirometry Monitor renal function. Monitor electrolytes. Supplement as necessary. Monitor ins and outs. Eliquis BID for DVT prophylaxis. Protonix for GI prophylaxis Prognosis: Guarded given patient's multiple co-morbidities. Rest of plan per hospitalist and other consultants. Thank you Esther Mcneill NP, for allowing me to participate in this patient's care. Further recommendations will depend on the patient's clinical course. Please do not hesitate to contact me if you have any questions or concerns. This medical document was created using an electronic medical record system with [employer] dictation system. Although these documentations are being carefully reviewed, there may still be some phonetic and typographical changes. The errors are purely typographical, due to imperfection on the software program, and do not reflect any compromise in the patient's medical care. Dietary Evaluation Review Comments: 1) Continue to monitor pt PO intake to meet at least 75% of meals 2) If pt appetite remains poor consider Ensure Enlive TID 3) Continue current plan of care Expected Outcomes/Goals: 1) Pt appetite to improve 2) F/U in 3-5 days Plan discussed with: Patient, Other (RN Bill) TYSHAWN HANDY MD Mar 26, 2024 23:19
[2024-03-27] VITALS (14 sets, daily range): BP systolic 120–147; BP diastolic 64–81; PULSE 68–121; RESP 16–18; TEMP 97.3–98.6; O2SAT 91–100
[2024-03-27] MEDS ORDERED: METH4PAK PO (11:32)
[2024-03-27] MEDS ORDERED: APIX5TAB PO (11:32)
--- NOTE | 2024-03-27 11:36 | DVHDS2 ---
Discharge Summary Date of Admission Mar 19, 2024 at 10:55 Date of Discharge: Mar 27, 2024 Labs/Diagnostic Data: Laboratory Results Test 03/25/24 06:27 03/24/24 10:42 03/24/24 05:24 03/19/24 12:13 Sodium Level 140 mmol/L (136-145) Potassium Level 5.1 mmol/L (3.5-5.1) Chloride Level 98 mmol/L (98-107) Carbon Dioxide Level > 40 mmol/L (20-31) Anion Gap 1.64150 (5-15) Blood Urea Nitrogen 12 mg/dL (9-23) Creatinine 0.49 mg/dL (0.550-1.02) Glomerular Filtration Rate Calc 101 mL/min (>90) BUN/Creatinine Ratio 24.5 (10.0-20.0) Serum Glucose 127 mg/dL (74-106) Calcium Level 9.1 mg/dL (8.7-10.4) Blood Gas Specimen Type Arterial Blood Gas Sample Site Right brachial Blood Gas Patient Temperature 37.0 Arterial Blood Date Drawn [id number] Arterial Blood pH 7.327 (7.350-7.450) Arterial Blood Partial Pressure CO2 74.5 mmHg (32.0-45.0) Arterial Blood Partial Pressure O2 79.2 mmHg (83.0-108.0) Arterial Blood HCO3 38.1 mmol/L (21.0-28.0) Arterial Blood Oxygen Saturation 94.9 % (94.0-98.0) Arterial Blood Base Excess 9.2 mmol/L (-2.0-3.0) Arterial Blood Oxyhemoglobin 93.4 % (94.0-98.0) Arterial Blood Carboxyhemoglobin 1.2 % (0.5-1.5) Arterial Blood Methemoglobin 0.4 % (0.0-1.5) Javier Test N/a Blood Gas Total Hemoglobin 13.60 g/dL (12.0-16.0) Blood Gas Liter Flow 3.00 Blood Gas Modality Nasal cannula FiO2 % 32.0 Blood Gas Critical Value Read Back Yes Blood Gas Notified Whom erich Myers Blood Gas Notified Time [id number] Blood Gas Notified By donte Canrey White Blood Count 5.8 10^3/uL (4.4-10.8) Red Blood Count 4.53 10^6/uL (4.0-5.20) Hemoglobin 12.6 g/dL (12.2-16.2) Hematocrit 38.8 % (36.0-46.0) Mean Corpuscular Volume 85.7 fL (80.0-100.0) Mean Corpuscular Hemoglobin 27.8 pg (28.0-32.0) Mean Corpuscular Hemoglobin Concent 32.5 g/dL (32.0-36.0) Red Cell Distribution Width 15.8 % (11.8-14.3) Platelet Count 418 10^3/uL (140-450) Mean Platelet Volume 7.1 fL (6.9-10.8) Neutrophils (%) (Auto) 88.1 % (37.0-80.0) Lymphocytes (%) (Auto) 9.0 % (10.0-50.0) Monocytes (%) (Auto) 2.8 % (0.0-12.0) Eosinophils (%) (Auto) 0.0 % (0.0-7.0) Basophils (%) (Auto) 0.1 % (0.0-2.0) Neutrophils # (Auto) 5.1 10 ^3/uL (1.6-8.6) Lymphocytes # (Auto) 0.5 10 ^3/uL (0.4-5.4) Monocytes # (Auto) 0.2 10 ^3/uL (0-1.3) Eosinophils # (Auto) 0 10 ^3/uL (0-0.8) Basophils # (Auto) 0 10 ^3/uL (0-0.2) Nucleated Red Blood Cells 0.2 % Magnesium Level 2.4 mg/dL (1.6-2.6) Total Bilirubin 0.5 mg/dL (0.2-1.0) Aspartate Amino Transferase (AST) 52 U/L (13-40) Alanine Aminotransferase (ALT) 29 U/L (7-40) Alkaline Phosphatase 55 U/L (46-116) Total Protein 6.1 g/dL (5.7-8.2) Albumin 4.0 g/dL (3.2-4.8) Urine Color Yellow (Yellow) Urine Clarity Clear (Clear) Urine pH 6.0 (5.0-9.0) Urine Specific [place] 1.024 (1.001-1.035) Urine Protein 1+ (Negative) Urine Ketones 2+ (Negative) Urine Blood Trace /uL (Negative) Urine Nitrite Negative (Negative) Urine Bilirubin Negative (Negative) Urine Urobilinogen Normal mg/dL (Negative) Urine Leukocyte Esterase Negative /uL (Negative) Urine RBC 67 /hpf (0 - 4) Urine WBC 8 /hpf (0 - 5) Urine Squamous Epithelial Cells None seen /hpf (<5) Urine Bacteria None seen /hpf (None Seen) Urine Mucus Few (None Seen) Urine Glucose 3+ mg/dL (Normal) Test 03/19/24 09:40 03/19/24 09:00 Influenza Type A Antigen Negative (Negative) Influenza Type B Antigen Negative (Negative) SARS-CoV-2 Antigen (Rapid) Negative (NEGATIVE) Lactic Acid Level 0.7 mmol/L (0.4-2.0) B-Type Natriuretic Peptide 30.10 pg/mL (0-100) Other Laboratory Tests 03/25/24 06:27 03/24/24 05:24 Brief Hx & Hospital Course: Final diagnoses: Acute hypoxic respiratory failure Chronic respiratory failure on home O2 COPD exacerbation Acute bronchitis Dyslipidemia Ex-smoker Anxiety History of AFib She was treated for respiratory failure and COPD with IV steroids and oxygen and med neb treatments. She was also given Zithromax. She had history of AFib and therefore she was started on Eliquis Overall she improved slowly She was more hypoxic initially but then she improved In the last 2 days however she has been refusing treatments and does not want to be examined Her examination today however showed mild wheezing diffusely She is on 3 L nasal cannula She has oxygen at home already She is feeling more comfortable now Discharged home on a tapered dose prednisone and Eliquis 5 mg twice a day in addition to her regular home medications Follow up with the primary care physician as soon as possible Condition at Discharge: Stable Final Diagnosis/Problems List Acute hypoxic respiratory failure Chronic respiratory failure on home O2 COPD exacerbation Acute bronchitis Dyslipidemia Ex-smoker Anxiety History of AFib Discharge Disposition: Home with [facility] Discharge Will this Physician continue t: No Discharge Instruct/Medications Diet: Cardiac 2g Na,low cholest Activity: Light activity Follow Up/Referral: PCP as soon as possible Medications: Medrol Dosepak Eliquis Resume the home medications Discharge Statement: "Patient was advised to return to the ER or call 911 if any headaches, dizziness, shortness of breath, chest pain, abdominal pain, bleeding, fevers, or worsening of medical condition. Patient was counseled about treatment plan, medications, possible side effects, patientverbalized understanding. All questions were answered to the best of my ability. This discharge took greater then 30 minutes in planning, reviewing documentation, counseling the patient, and discussing with other team members." ASSESSMENT ASSESSMENT Assessment Acute hypoxic respiratory failure Chronic respiratory failure on home O2 COPD exacerbation Acute bronchitis Dyslipidemia Ex-smoker Anxiety History of AFib Date of Service: Mar 27, 2024 Billing Provider: ROBERT ELLIOTT MD Common Visit Codes: [id number] DISCH DAY >30min ROBERT ELLIOTT MD Mar 27, 2024 11:36
--- NOTE | 2024-03-27 22:44 | DVHPN2 ---
Progress Note - Dictate Date Seen: Mar 27, 2024 Medical Necessity Reason Pt with a Central, PICC or Fol: No Subjective Patient seen and examined at bedside. Remains on supplemental oxygen Overnight events reviewed. vital signs Vital Sign Date Time Temp Pulse Resp B/P (MAP) Pulse Ox O2 Delivery O2 Flow Rate FiO2 03/27/24 17:00 97.9 121 18 136/81 (99) 92 97.9 03/27/24 08:00 Nasal Cannula* 2 28 Total Intake and Output 03/26/24 03/26/24 03/27/24 15:00 23:00 07:00 Intake Total 450 ml 250 ml Balance 450 ml 250 ml objective Gen.: Patient lying in bed in no apparent distress. On supplemental oxygen. Head: Normocephalic, atraumatic. Eyes: EOMI/PERRLA. Ears: Normal hearing. Normal anatomy. Neck/trachea: Trachea midline, supple. Nose: Normal external anatomy. Mouth: Moist mucous membranes. Chest: Decreased air entry bilaterally. Bilateral wheezing; no rhonchi. Cardiovascular: Positive S1, positive S2. Regular rate and rhythm. Abdomen: Positive bowel sounds in all 4 quadrants. Soft, non-tender, non- distended. : Deferred. Rectal: Deferred. Skin: Warm, dry. Intact. Extremities: 2+ radial pulses bilaterally. No lower extremity edema. Neuro: Awake, alert, oriented x3. No gross motor or sensory deficits. Cranial nerves II through XII intact. Gait not assessed. laboratory and microbiology Laboratory Tests 03/25/24 06:27 03/24/24 05:24 Test 03/25/24 06:27 Range/Units Serum Glucose 127 H 74-106 mg/dL Assessment/Plan Impression: Acute hypoxic respiratory failure AE COPD Wheezing Atelectasis Cough Events: Remains on supplemental O2 at 3 LPM NC Taper O2 as tolerated Continue bronchodilators q.6 hours. Steroid course complete Antibiotic course complete. Incentive spirometry Patient is stable for discharge from the pulmonary standpoint Labs and imaging reviewed. Rest of plan as noted below. Plan: Supplemental oxygen Titrate to keep O2 sats above 92%. Continue bronchodilators q.6. Steroid course complete Antibiotic course complete. Incentive spirometry Monitor renal function. Monitor electrolytes. Supplement as necessary. Monitor ins and outs. Eliquis BID for DVT prophylaxis. Protonix for GI prophylaxis Prognosis: Guarded given patient's multiple co-morbidities. Rest of plan per hospitalist and other consultants. Thank you Esther Mcneill, BRENDA, for allowing me to participate in this patient's care. Further recommendations will depend on the patient's clinical course. Please do not hesitate to contact me if you have any questions or concerns. This medical document was created using an electronic medical record system with [email or web address] dictation system. Although these documentations are being carefully reviewed, there may still be some phonetic and typographical changes. The errors are purely typographical, due to imperfection on the software program, and do not reflect any compromise in the patient's medical care. Dietary Evaluation Review Comments: 1) Continue to monitor pt PO intake to meet at least 75% of meals 2) If pt appetite remains poor consider Ensure Enlive TID 3) Continue current plan of care Expected Outcomes/Goals: 1) Pt appetite to improve 2) F/U in 3-5 days Plan discussed with: Patient, Other (GOLDY Artis/Tanya) TYSHAWN HANDY MD Mar 27, 2024 22:44
[2024-03-28] MEDS ORDERED: predniSONE 5 MG TAB PO SCH (10:00)
== END 2024-03-27 17:50 | disposition home or self-care (01) | DRG 189 ==
LOC: ER 09:00 → EDBD 09:00 → TELE 10:55 → TELE-EAST 03-23 21:18
PROVIDERS: ADMIT Registered Nurse; ATTEND Internal Medicine Geriatric Medicine
PROC: 5A0935A Assistance with Respiratory Ventilation, Less than 24 Consecutive Hours, High Flow/Velocity Cannula (ICD-10-PCS; principal; 2024-03-20)
PROC: 5A0935A Assistance with Respiratory Ventilation, Less than 24 Consecutive Hours, High Flow/Velocity Cannula (ICD-10-PCS; 2024-03-21)
PROC: 05HC33Z Insertion of Infusion Device into Left Basilic Vein, Percutaneous Approach (ICD-10-PCS; 2024-03-21)
PROC: B54NZZA Ultrasonography of Left Upper Extremity Veins, Guidance (ICD-10-PCS; 2024-03-21)
PROC: 5A0935A Assistance with Respiratory Ventilation, Less than 24 Consecutive Hours, High Flow/Velocity Cannula (ICD-10-PCS; 2024-03-22)
DX: J96.21 Acute and chronic respiratory failure with hypoxia (principal); J44.1 Chronic obstructive pulmonary disease with (acute) exacerbation; J98.11 Atelectasis; F41.9 Anxiety disorder, unspecified; E11.9 Type 2 diabetes mellitus without complications; Z20.822 Contact with and (suspected) exposure to COVID-19; E78.5 Hyperlipidemia, unspecified; I10 Essential (primary) hypertension; I48.91 Unspecified atrial fibrillation; J84.10 Pulmonary fibrosis, unspecified; J20.9 Acute bronchitis, unspecified; Z99.81 Dependence on supplemental oxygen; Z79.01 Long term (current) use of anticoagulants; Z87.891 Personal history of nicotine dependence; Z82.5 Family history of asthma and other chronic lower respiratory diseases; Z87.01 Personal history of pneumonia (recurrent); Z79.4 Long term (current) use of insulin; Z79.899 Other long term (current) drug therapy
CPT/HCPCS: 36415; 36600; 71045; 80048; 80053; 81001; 82805; 83605; 83735; 83880; 85025; 87040; 87081; 87426; 87804; 93005; 94640; 94644; 97163; 99291; G0378

== ENCOUNTER 2024-04-04 09:43 | Inpatient (IN) | payer MEDICARE, MEDICAID ==
[~2024-04-04] VITALS: Ht 157.5 cm; Wt 48.6 kg
[2024-04-04] VITALS (8 sets, daily range): BP systolic 101; BP diastolic 44; PULSE 75–109; RESP 16–18; TEMP 97.8; O2SAT 92–100
[~2024-04-04 09:43] MED LIST changes: +APIX5TAB PO; -DOXY-286 PO; -FLUC200T50 PO; +METH4PAK PO
--- NOTE | 2024-04-04 10:27 | ED.PDOC ---
SOB-HPI HPI Comments 69-year-old female who comes in with chief complaint of shortness a breath. The patient has a history of COPD and was recently admitted to our facility. The patient was being seen by her primary care doctor today and because her oxygen saturation was very low she was sent to the emergency department's for further e valuation. Upon arrival, the patient has a nonproductive cough. She denies any chest pain or fever at this time. The patient also denies any chills. When she was placed in the emergency department's, the patient had an oxygen saturation around 80%. Chief Complaint: Shortness of Breath Time Seen by MD: 10:09 Primary Care Provider: unknown Reviewed notes: Nurses Notes, Medications, Allergies (No allergies to medications) Information Source: Patient Mode of Arrival: Ambulatory Severity: Moderate Timing: Days Duration: Since onset Context: At Rest PE Risk Factors: None History of: COPD Prehospital treatment: None Modifying Factors: Nothing Associated Signs and Symptoms: Wheeze, Cough If cough with SOB: Non-Productive Past Medical History PAST MEDICAL HISTORY: AFIB, Cancer, COPD, DM, High Lipids, HTN Surgical History: , Tonsillectomy Surgical History (Other): Cataract surgery LINE THERAPIST History: No Pertinent LINE THERAPIST History Family History Family History: Family hx of Cancer, Family hx of heart cammie Social History Smoker: Quit Greater Than 1 Year, Cigarettes Alcohol: Sober Drugs: Denies Drug Use Lives In: Home Constitutional: denies: chills, diaphoresis, fatigue, fever, malaise, sweats, weakness, others EENTM: denies: blurred vision, double vision, ear bleeding, ear discharge, ear drainage, ear pain, ear ringing, eye pain, eye redness, hearing loss, mouth pain, mouth swelling, nasal discharge, nose bleeding, nose congestion, nose pain, photophobia, tearing, throat pain, throat swelling, voice changes, others Respiratory: reports: cough, shortness of breath, wheezing; denies: hemoptysis, orthopnea, SOB at rest, SOB with excertion, stridor, others Cardiovascular: denies: chest pain, dizzy spells, diaphoresis, Dyspnea on exertion, edema, irregular heart beat, left arm pain, lightheadedness, palpitations, PND, syncope, others Gastrointestinal: denies: abdomen distended, abdominal pain, blood streaked bowels, constipated, diarrhea, dysphagia, difficulty swallowing, hematemesis, melena, nausea, poor appetite, poor fluid intake, rectal bleeding, rectal pain, vomiting, others Genitourinary: denies: abnormal vagina bleeding, burning, dyspareunia, dysuria, flank pain, frequency, hematuria, incontinence, pain, , vagina discharge, urgency, others Neurological: denies: dizziness, fainting, headache, left sided numbness, left sided weakness, numbness, paresthesia, pre-existing deficit, right sided numbness, right sided weakness, seizure, speech problems, tingling, tremors, weakness, others Musculoskeletal: denies: back pain, gout, joint pain, joint swelling, muscle pain, muscle stiffness, neck pain, others Integumetry: denies: bruises, change in color, change in hair/nails, dryness, laceration, lesions, lumps, rash, wounds, others Allergic/Immunocompromised: denies: Difficulty Healing, Frequent Infections, Hives, Itching, others Hematologic/Lymphatic: denies: anemia, blood clots, easy bleeding, easy bruising, swollen glands, others Endocrine: denies: excessive hunger, excessive sweating, excessive thirst, excessive urination, flushing, intolerance to cold, intolerance to heat, unexplained weight gain, unexplained weight loss, others Psychiatric: denies: anxiety, bipolar disorder, depression, hopeless, panic disorder, schizophrenia, sleepless, suicidal, others Physical Exam General Appearance: Moderate Distress HEENT: Normal ENT Inspection, Pharynx Normal, TMs Normal Neck: Full Range of Motion, Non-Tender, Normal, Normal Inspection Respiratory: Accessory Muscle Use, Chest Non-Tender, Decreased Breath Sounds, Respiratory Distress, Wheezing Cardiovascular: No Edema, No JVD, No Murmur, No Gallop, Normal Peripheral Pulses, Regular Rate/Rhythm Breast Exam: Deferred Gastrointestinal: No Organomegaly, Non Tender, No Pulsatile Mass, Normal Bowel Sounds, Soft Genitalia: Deferred Pelvic: Deferred Rectal: Deferred Extremities: No calf tenderness, Normal capillary refill, Normal inspection, Normal range of motion, Non-tender, No pedal edema Musculoskeletal : Apperance: Normal Neurologic: Alert, steeler II-XII nml as Tested, No Motor Deficits, Normal Affect, Normal Mood, No Sensory Deficits Cerebellar Function: Normal Reflexes: Normal Skin: Dry, Normal Color, Warm Lymphatic: No Adenopathy EKG EKG : Pulse Rate (adult): 98 [place]: Normal Cardiac Rhythm: NSR Block: None ST: Nonsp Was a procedure done? Was a procedure done?: No Differential Dx Differential Diagnosis: Asthma, Bronchitis, CHF, COPD X-Ray, Labs, Meds, VS Vital Signs Date Time Temp Pulse Resp B/P (MAP) Pulse Ox O2 Delivery O2 Flow Rate FiO2 04/04/24 11:10 87 17 96 Nasal Cannula* 2 28 04/04/24 11:10 97.8 87 17 101/44 (63) 96 97.8 04/04/24 10:30 22 93 Nasal Cannula* 3 32 04/04/24 10:27 98 04/04/24 10:26 98.0 100 22 101/39 (59) 93 04/04/24 10:16 98 Lab Test 04/04/24 10:46 Range/Units White Blood Count 10.1 4.4-10.8 10^3/uL Red Blood Count 4.34 4.0-5.20 10^6/uL Hemoglobin 11.9 L 12.2-16.2 g/dL Hematocrit 38.5 36.0-46.0 % Mean Corpuscular Volume 88.7 80.0-100.0 fL Mean Corpuscular Hemoglobin 27.4 L 28.0-32.0 pg Mean Corpuscular Hemoglobin Concent 30.9 L 32.0-36.0 g/dL Red Cell Distribution Width 16.1 H 11.8-14.3 % Platelet Count 396 140-450 10^3/uL Mean Platelet Volume 7.4 6.9-10.8 fL Neutrophils (%) (Auto) 76.2 37.0-80.0 % Lymphocytes (%) (Auto) 15.1 10.0-50.0 % Monocytes (%) (Auto) 7.1 0.0-12.0 % Eosinophils (%) (Auto) 1.0 0.0-7.0 % Basophils (%) (Auto) 0.6 0.0-2.0 % Neutrophils # (Auto) 7.7 1.6-8.6 10 ^3/uL Lymphocytes # (Auto) 1.5 0.4-5.4 10 ^3/uL Monocytes # (Auto) 0.7 0-1.3 10 ^3/uL Eosinophils # (Auto) 0.1 0-0.8 10 ^3/uL Basophils # (Auto) 0.1 0-0.2 10 ^3/uL Nucleated Red Blood Cells 0.1 % Sodium Level 139 136-145 mmol/L Potassium Level 3.8 3.5-5.1 mmol/L Chloride Level 96 L 98-107 mmol/L Carbon Dioxide Level 39 H 20-31 mmol/L Anion Gap 4 L 5-15 Blood Urea Nitrogen < 5 L 9-23 mg/dL Creatinine 0.56 0.550-1.02 mg/dL Glomerular Filtration Rate Calc 98 >90 mL/min BUN/Creatinine Ratio 8.9 L 10.0-20.0 Serum Glucose 87 74-106 mg/dL Lactic Acid Level 1.5 0.4-2.0 mmol/L Calcium Level 9.5 8.7-10.4 mg/dL B-Type Natriuretic Peptide Pending Current Medications Medications (Trade) Dose Ordered Sig/Shanique Route Start Time Stop Time Status Last Admin Methylprednisolone Sodium Succinate (Solu Medrol) 125 mg ONCE ONCE IV 04/04/24 10:30 04/04/24 10:31 DC 04/04/24 10:30 Ipratropium [place] (Atrovent Medneb) 1 mg ONCE ONCE N 04/04/24 10:30 04/04/24 10:31 DC 04/04/24 10:37 Albuterol (Ventolin Medneb) 20 mg ONCE ONCE N 04/04/24 10:30 04/04/24 10:31 DC 04/04/24 10:36 The chest x-ray is negative. The patient was given Solu-Medrol 125 mg IV push The patient was given a continuous breathing treatment of albuterol and Atrovent The CBC and chemistry panel are within normal limits. Because of the patient's hypoxemia we are admitting the patient with a diagnosis of acute Images Reviewed?: Images reviewed and evaluated by me Time of 1ST Reevaluation: 10:26 Reevaluation 1ST: Improved Patient Education/Counseling: Diagnosis, Treatment, Prognosis Family Education/Counseling: No Family Present Departure 1 Departure Time of Disposition: 10:27 Impression: Primary Impression: Acute on chronic hypoxic respiratory failure Additional Impression: COPD exacerbation Disposition: 09 ADMITTED INPATIENT Admit to: [facility] Condition: Fair Critical Care Note Critical Care Time?: Yes (35 min-critical care time only) Stability Stability form required: Yes Unstable for transfer: Telemetry monitoring (Telemetry monitoring required), ED Physician Assesment (Clinical assesment) Heart Score Heart Score: Heart Score Response (Comments) Value History N/A 0 EKG N/A 0 Age N/A 0 Risk Factors N/A 0 Troponin N/A 0 Total 0 ALTAGRACIA STEVENS MD Apr 04, 2024 10:27
[2024-04-04] MEDS: methylPREDNISolone SOD SUCC 125 MG/2 ML VL IV ONE (10:30)
[2024-04-04] MEDS: ALBUTEROL SULF 2.5 MG/0.5ML(0.5%) NEB SOLN HHN ONE (10:36)
[2024-04-04] MEDS: IPRATROPIUM BROM 0.5 MG/2.5ML INH SOL HHN ONE (10:37)
[2024-04-04 11:25] LABS: Basophils # (auto) 0.1 10 ^3/uL (0-0.2); Basophils % (auto) 0.6 % (0.0-2.0); Eosinophils # (auto) 0.1 10 ^3/uL (0-0.8); Hematocrit 38.5 % (36.0-46.0); Hemoglobin 11.9 g/dL (12.2-16.2); Lymphocytes # (auto) 1.5 10 ^3/uL (0.4-5.4); Lymphocytes % (auto) 15.1 % (10.0-50.0); Mean Corpuscular Hemoglobin 27.4 pg (28.0-32.0); Mean Corpuscular Hgb Conc. 30.9 g/dL (32.0-36.0); Mean Corpuscular Volume 88.7 fL (80.0-100.0); Monocytes # (auto) 0.7 10 ^3/uL (0-1.3); Monocytes % (auto) 7.1 % (0.0-12.0); Neutrophils # (auto) 7.7 10 ^3/uL (1.6-8.6); Neutrophils % (auto) 76.2 % (37.0-80.0); Nucleated Red Blood Cells % 0.1 %; Platelet Count (auto) 396 10^3/uL (140-450); Red Blood Cells 4.34 10^6/uL (4.0-5.20); Red Cell Distribution Width 16.1 % (11.8-14.3); White Blood Cell 10.1 10^3/uL (4.4-10.8)
--- NOTE | 2024-04-04 11:35 | DVH ---
CHEST RADIOGRAPH Indication: sob Technique: Single frontal view of the chest was obtained COMPARISON: XY CHEST PORTABLE on DOS: 03/19/24, XY CHEST PORTABLE on DOS: 02/28/24, XY CHEST PORTABLE on DOS: 02/24/24 FINDINGS: Lines and Tubes: None Lungs: Clear Pleura: No effusion. No pneumothorax. Cardiomediastinal contours: Unremarkable Bones: Unremarkable IMPRESSION: No acute disease.
[2024-04-04 11:40] LABS: Chloride 96 mmol/L (98-107); Potassium 3.8 mmol/L (3.5-5.1); Sodium 139 mmol/L (136-145)
[2024-04-04 11:41] LABS: Anion Gap 4 (5-15); Carbon Dioxide 39 mmol/L (20-31)
[2024-04-04 11:42] LABS: Calcium 9.5 mg/dL (8.7-10.4)
[2024-04-04 11:46] LABS: Glucose 87 mg/dL (74-106)
[2024-04-04 11:51] LABS: BUN/Creatinine Ratio 8.9 (10.0-20.0); Blood Urea Nitrogen < 5 mg/dL (9-23)
--- NOTE | 2024-04-04 12:55 | DVHHP2 ---
History of Present Illness Reason for Visit: Shortness of breaths History of Present Illness Cammie Tabares is a 69-year-old female with past medical history of AFib, COPD, diabetes, hyperlipidemia, hypertension, asthma, bronchitis, CHF, C- section, tonsillectomy and cataract surgery who presents to the ED for shortness of breath. Patient reports that she went into see her primary care doctor and noted that her saturation was low. Patient reports that she use home oxygen 2LNC and that she was just discharged 3 days ago for the same issue shortness of breath. Patient states that she has been using her inhaler much more frequently. Patient denies chest pain, dizziness, nausea, vomiting, diarrhea, and headache. Cardiovascular: AFIB, CHF, HTN, hyperipidemia Pulmonary: Asthma, Bronchitis, COPD Endocrine: Diabetes Past Surgical History: , Other (Cataract surgery), Tonsillectomy Smoke: No ALCOHOL: none Drugs: None Lives: with Family Domestic Violence: Neg Review of Systems Constitutional: No: Fever, Chills, Sweats, Weakness, Malaise, Other Eyes: No: Pain, Vision change, Conjunctivae inflammation, Eyelid inflammation, Other, Redness ENT: No: Ear pain, Ear discharge, Nose pain, Nose discharge, Nose congestion, Mouth pain, Mouth swelling, Throat pain, Throat swelling, Other Respiratory: Shortness of breath; No: Cough, Dry, SOB with excertion, Wheezing, Hemoptysis, Pleuritic Pain, Sputum, Wheezing, Other Cardiovascular: No: Chest Pain, Palpitations, Orthopnea, Paroxysmal Noc. Dyspnea, Edema, Lt Headedness, Other Gastrointestinal: No: Nausea, Vomiting, Abdominal Pain, Diarrhea, Constipation, Melena, Hematochezia, Other Genitourinary: No Dysuria, No Frequency, No Incontinence, No Hematuria, No Retention, No Other Musculoskeletal: No: other, neck pain, shoulder pain, arm pain, back pain, hand pain, leg pain, foot pain Skin: No: Rash, Lesions, Jaundice, Bruising, Other Neurological: No: Weakness, Numbness, Incoordination, Change in speech, Confusion, Seizures, Other Allergies: Coded Allergies: NO KNOWN ALLERGIES (Unverified , 03/30/22) Exam Vital Signs Vital Signs Date Time Temp Pulse Resp B/P (MAP) Pulse Ox O2 Delivery O2 Flow Rate FiO2 04/04/24 11:10 87 17 96 Nasal Cannula* 2 28 04/04/24 11:10 97.8 101/44 (47) 97.8 General Appearance: Alert, Oriented X3, Cooperative, mild distress HEENT: Atraumatic, PERRLA, EOMI, Mucous membr. moist/pink Respiratory: Normal air movement Cardiovascular: Regular rate, Normal S1, Normal S2, No murmurs Abdominal: Normal bowel sounds, Soft, No tenderness, No hepatospenomegaly Extremities: No clubbing, No cyanosis, No edema, Normal pulses, No tenderness/swelling Skin: No rashes, No significant lesion Neuro: Normal speech, Normal tone, Sensation intact Psych/Mental Status: Mental status NL, Mood NL Labs/Xrays Labs Test 04/04/24 10:46 Range/Units White Blood Count 10.1 4.4-10.8 10^3/uL Red Blood Count 4.34 4.0-5.20 10^6/uL Hemoglobin 11.9 L 12.2-16.2 g/dL Hematocrit 38.5 36.0-46.0 % Mean Corpuscular Volume 88.7 80.0-100.0 fL Mean Corpuscular Hemoglobin 27.4 L 28.0-32.0 pg Mean Corpuscular Hemoglobin Concent 30.9 L 32.0-36.0 g/dL Red Cell Distribution Width 16.1 H 11.8-14.3 % Platelet Count 396 140-450 10^3/uL Mean Platelet Volume 7.4 6.9-10.8 fL Neutrophils (%) (Auto) 76.2 37.0-80.0 % Lymphocytes (%) (Auto) 15.1 10.0-50.0 % Monocytes (%) (Auto) 7.1 0.0-12.0 % Eosinophils (%) (Auto) 1.0 0.0-7.0 % Basophils (%) (Auto) 0.6 0.0-2.0 % Neutrophils # (Auto) 7.7 1.6-8.6 10 ^3/uL Lymphocytes # (Auto) 1.5 0.4-5.4 10 ^3/uL Monocytes # (Auto) 0.7 0-1.3 10 ^3/uL Eosinophils # (Auto) 0.1 0-0.8 10 ^3/uL Basophils # (Auto) 0.1 0-0.2 10 ^3/uL Nucleated Red Blood Cells 0.1 % Sodium Level 139 136-145 mmol/L Potassium Level 3.8 3.5-5.1 mmol/L Chloride Level 96 L 98-107 mmol/L Carbon Dioxide Level 39 H 20-31 mmol/L Anion Gap 4 L 5-15 Blood Urea Nitrogen < 5 L 9-23 mg/dL Creatinine 0.56 0.550-1.02 mg/dL Glomerular Filtration Rate Calc 98 >90 mL/min BUN/Creatinine Ratio 8.9 L 10.0-20.0 Serum Glucose 87 74-106 mg/dL Lactic Acid Level 1.5 0.4-2.0 mmol/L Calcium Level 9.5 8.7-10.4 mg/dL B-Type Natriuretic Peptide 201.64 0-100 pg/mL CHEST RADIOGRAPH Indication: sob Technique: Single frontal view of the chest was obtained COMPARISON: XY CHEST PORTABLE on DOS: 03/19/24, XY CHEST PORTABLE on DOS: 02/28/24, XY CHEST PORTABLE on DOS: 02/24/24 FINDINGS: Lines and Tubes: None Lungs: Clear Pleura: No effusion. No pneumothorax. Cardiomediastinal contours: Unremarkable Bones: Unremarkable IMPRESSION: No acute disease. Assessment/Plan Assessment/Plan Assessment: Acute on chronic respiratory failure History of AFib COPD asthma Bronchitis CHF Diabetes Hyperlipidemia Hypertension Tonsillectomy Cataract surgery Plan: Admit to [facility] IV fluids Pain management IV antibiotics Steroids Antiemetics Resp txs Chest x-ray noted ISS and Accuchecks HgbA1C 5.9 Diet as tolerated Monitor labs Home medications reconciled Plan discussed with: Patient Date of Service: Apr 04, 2024 Billing Provider: CESAR CESPEDES Common Visit Codes: [id number] INP/OBS CARE (MOD) CESAR CESPEDES Apr 04, 2024 12:55
[2024-04-04] MEDS ORDERED: HYDROcodone-ACET 5/325MG TAB PO PRN (14:45)
[2024-04-04] MEDS ORDERED: ACETAMINOPHEN 325 MG TAB PO PRN (14:45)
[2024-04-04] MEDS ORDERED: DOCUSATE SOD 100 MG CAP PO PRN (14:45)
[2024-04-04] MEDS ORDERED: LORazepam 0.5 MG TAB PO PRN (14:45)
[2024-04-04] MEDS ORDERED: ONDANSETRON HCL 4 MG/2 ML VIAL IV PRN (14:45)
[2024-04-04] MEDS ORDERED: MORPHINE SULFATE INJ 2 MG/ml SYRG IV PRN (14:45)
[2024-04-04] MEDS ORDERED: DEXTROSE (50%) 50ML SYRG IV PRN (15:00)
[2024-04-04] MEDS ORDERED: DOCU-265 PO (15:12)
[2024-04-04] MEDS: cefTRIAXone 1GM/50ML D5W 50 ML IV ONE (15:25)
[2024-04-04] MEDS: AZITHROMYCIN 250 MG TAB PO ONE (15:56)
[2024-04-04] MEDS: ACCU-CHEK COMFORT CURVE STRIP VI SCH (16:00)
[2024-04-04] MEDS: InsuLIN REG 1unit/0.01ml Soln (100units/ml) SC SCH (16:00)
[2024-04-04 16:52] LABS: Basophils # (auto) 0 10 ^3/uL (0-0.2); Basophils % (auto) 0.1 % (0.0-2.0); Eosinophils # (auto) 0 10 ^3/uL (0-0.8); Hemoglobin 11.6 g/dL (12.2-16.2); Lymphocytes # (auto) 0.2 10 ^3/uL (0.4-5.4); Mean Corpuscular Hemoglobin 27.4 pg (28.0-32.0); Mean Corpuscular Hgb Conc. 31.3 g/dL (32.0-36.0); Mean Corpuscular Volume 87.4 fL (80.0-100.0); Monocytes # (auto) 0.1 10 ^3/uL (0-1.3); Monocytes % (auto) 0.6 % (0.0-12.0); Neutrophils # (auto) 11.8 10 ^3/uL (1.6-8.6); Neutrophils % (auto) 97.3 % (37.0-80.0); Platelet Count (auto) 386 10^3/uL (140-450); Red Blood Cells 4.23 10^6/uL (4.0-5.20); Red Cell Distribution Width 16.4 % (11.8-14.3); White Blood Cell 12.1 10^3/uL (4.4-10.8)
[2024-04-04 16:56] LABS: Potassium 3.6 mmol/L (3.5-5.1); Sodium 140 mmol/L (136-145)
[2024-04-04 16:57] LABS: Anion Gap 6 (5-15)
[2024-04-04 16:58] LABS: Calcium 9.5 mg/dL (8.7-10.4)
[2024-04-04 17:02] LABS: BUN/Creatinine Ratio 8.6 (10.0-20.0)
[2024-04-04 17:03] LABS: Blood Urea Nitrogen 5 mg/dL (9-23); Carbon Dioxide 39 mmol/L (20-31); Chloride 95 mmol/L (98-107); Glucose 157 mg/dL (74-106)
[2024-04-04] MEDS: ALBUTEROL SULF 2.5 MG/0.5ML(0.5%) NEB SOLN NEB ONE (18:00)
[2024-04-04] MEDS: IPRATROPIUM BROM 0.5 MG/2.5ML INH SOL NEB SCH (18:31)
[2024-04-04] MEDS ORDERED: PREGABALIN CAPSULE 75 MG CAP PO SCH (22:00)
[2024-04-04] MEDS ORDERED: PREGABALIN 25 MG CAP PO SCH (22:00)
[2024-04-04] MEDS ORDERED: PERMETHRIN 5 % TOPICAL CREAM 60GM TOP SCH (22:00)
[2024-04-04] MEDS ORDERED: TRIAMCINOLONE ACET 0.1% TOPICAL CREAM 15GM TOP SCH (22:00)
[2024-04-04] MEDS: methylPREDNISolone SOD SUCC 40 MG/ML VL IV SCH (23:04)
[2024-04-04] MEDS: SUCRALFATE 1 GM TAB PO SCH (23:05)
[2024-04-04] MEDS: ATORVASTATIN 20 MG TAB PO SCH (23:05)
[2024-04-04] MEDS: ALPRAZolam 0.25 MG TAB PO SCH (23:05)
[2024-04-04] MEDS: PREGABALIN 25 MG CAP PO SCH (23:16)
[2024-04-04] MEDS: PREGABALIN CAPSULE 75 MG CAP PO SCH (23:35)
[2024-04-05] VITALS (17 sets, daily range): BP systolic 93–123; BP diastolic 46–76; PULSE 87–113; RESP 15–20; TEMP 97.4–97.8; O2SAT 2–100
[2024-04-05] MEDS: BUPROPION HCL 150 MG PO SCH (06:23)
[2024-04-05 06:52] LABS: Basophils # (auto) 0 10 ^3/uL (0-0.2); Basophils % (auto) 0.3 % (0.0-2.0); Eosinophils # (auto) 0 10 ^3/uL (0-0.8); Hematocrit 35.4 % (36.0-46.0); Hemoglobin 11.3 g/dL (12.2-16.2); Lymphocytes # (auto) 0.8 10 ^3/uL (0.4-5.4); Lymphocytes % (auto) 9.9 % (10.0-50.0); Mean Corpuscular Hemoglobin 27.7 pg (28.0-32.0); Mean Corpuscular Hgb Conc. 32.1 g/dL (32.0-36.0); Mean Corpuscular Volume 86.3 fL (80.0-100.0); Monocytes # (auto) 0.1 10 ^3/uL (0-1.3); Monocytes % (auto) 1.6 % (0.0-12.0); Neutrophils # (auto) 7.3 10 ^3/uL (1.6-8.6); Neutrophils % (auto) 88.2 % (37.0-80.0); Nucleated Red Blood Cells % 0.2 %; Platelet Count (auto) 378 10^3/uL (140-450); Red Cell Distribution Width 16.1 % (11.8-14.3); White Blood Cell 8.3 10^3/uL (4.4-10.8)
[2024-04-05 06:57] LABS: Potassium 4.7 mmol/L (3.5-5.1); Sodium 139 mmol/L (136-145)
[2024-04-05 06:58] LABS: Calcium 9.6 mg/dL (8.7-10.4)
[2024-04-05 07:03] LABS: BUN/Creatinine Ratio 12.3 (10.0-20.0)
[2024-04-05 07:27] LABS: Anion Gap 3.99999 (5-15); Blood Urea Nitrogen 7 mg/dL (9-23); Chloride 95 mmol/L (98-107); Glucose 123 mg/dL (74-106)
[2024-04-05 07:30] LABS: Carbon Dioxide > 40 mmol/L (20-31)
[2024-04-05 08:49] LABS: INR 0.97 (0.9-1.15); Partial Thromboplastin Time 25.1 SEC (24.5-34.5); Prothrombin Time 10.3 sec (9.3-11.8)
[2024-04-05] MEDS: cefTRIAXone 1GM/50ML D5W 50 ML IV SCH (09:39)
[2024-04-05] MEDS: ENOXAPARIN SOD 60 MG/0.6 ML SYRINGE SC SCH (09:40)
[2024-04-05] MEDS: PANTOPRAZOLE 40 MG TAB PO SCH (09:41)
[2024-04-05] MEDS: LORATADINE 10 MG TAB PO SCH (09:41)
[2024-04-05] MEDS: AZITHROMYCIN 250 MG TAB PO SCH (10:00)
--- NOTE | 2024-04-05 10:34 | ECG ---
[facility] Test Date: 2024-04-04 Test Time: 10:16:10 Pat Name: KANWAL OLGUIN Department: ER Room: 0207 A Gender: F Keno Clerk: EL : 1955 Requested By: ALTAGRACIA STEVENS Order Number: [id number] Reading MD: Baltazar Rodriguez Measurements Intervals [place] Rate: 98 P: 85 NE: 162 QRS: 107 QRSD: 123 T: 38 QT: 301 QTc: 385 Interpretive Statements Sinus rhythm Ventricular premature complex Consider right atrial enlargement Right bundle branch block Minimal ST elevation, inferior leads Artifact in lead(s) III,aVL,aVF,V1,V2,V3,V4,V5,V6 Electronically Signed On 04-05-2024 16:23:53 PST by Baltazar Rodriguez Please click the below link to view image of tracing.
[2024-04-05 12:51] LABS: Base Excess 6.4 mmol/L (-2.0-3.0)
--- NOTE | 2024-04-05 13:18 | DVHSR ---
APPROVED REPORT EXAM: LIMITED Two-dimensional and M-mode echocardiogram with Doppler and color Doppler. Blood Pressure: 113/59 mmHg INDICATION acute chf RISK FACTORS Height: 5'2, Weight: 118 DIMENSIONS LVDd (3.8-5.7cm)LA (2D)2.7 (1.9-4.0cm)Aortic Root2.9 (2.0-3.7cm) LVDs (2.5-4.0cm)LA (MM) (1.9-4.0cm)Aortic Cusp Exc1.6 (1.5-2.0cm) EF (%) 60.0 (55-70%)Rt. Atrium (1.9-4.0cm)Asc. Aorta cm Mitral Valve MitralMitral Stenosis E wave0.51m/sMV Mean GR.mmHg A wave0.81m/sMV Peak GR.94mmHg E/A ratio0.62D MVAcm2 DECEL [id number] 1/2 Timems Aortic Valve Aortic ValveAortic Stenosis V10.90m/Kevin Mean GR.3mmHg V21.19m/Kevin Peak GR.6mmHg LVOT Diameter1.7 (1.8-2.4cm)Doppler AVA1.72cm2 Pulmonic Valve V20.76m/s Tricuspid Valve TR Velocity3.02m/s [id number] Other Information Technically limited study due to pt coughing and moving Conclusion Normal left ventricular size and dimension. Normal left ventricular systolic function estimated ejec tion fraction of 60%. There is a grade 1 diastolic dysfunction. Borderline dilated right ventricle. Mildly reduced left ventricular systolic function. Moderately e levated right ventricular systolic pressure at 50 mm of mercury. Borderline dilated right and left atria. Normal aortic valve structure and function. Normal mitral valve structure and function. There is mild tricuspid valve regurgitation. The pulmonary valve is grossly normal. No pericardial effusion.
--- NOTE | 2024-04-05 16:03 | DVHPNRES ---
Progress Note Date Seen: Apr 05, 2024 Resident Creating Document: ERVIN BENITEZ RESIDENT Has the PT tested + for MRSA If YES, has PT been informed?: No Medical Necessity Reason Pt with a Central, PICC or Fol: No Subjective Review of Systems A 69-year-old female with past medical history of AFib, COPD, diabetes, hyperlipidemia, hypertension, asthma, bronchitis, CHF, , tonsillectomy and cataract surgery who presents to the ED for shortness of breath. Patient reports that she went into see her primary care doctor and noted that her saturation was low. Patient reports that she use home oxygen 2LNC and that she was just discharged 3 days ago for the same issue shortness of breath. Patient states that she has been using her inhaler much more frequently. Patient denies chest pain, dizziness, nausea, vomiting, diarrhea, and headache. Objective vital signs Vital Sign Date Time Temp Pulse Resp B/P (MAP) Pulse Ox O2 Delivery O2 Flow Rate FiO2 04/05/24 14:07 105 16 100 04/05/24 14:01 Nasal Cannula 2.0 04/05/24 14:01 28 04/05/24 13:00 97.4 115/62 (79) 97.4 Total Intake and Output 04/04/24 04/04/24 04/05/24 15:00 23:00 07:00 Intake Total 400 ml Balance 400 ml medications Current Medications Medications Dose Ordered Sig/Shanique Route Start Time Stop Time Status Last Admin Dose Admin Lorazepam 0.5 mg Q6HP PRN PO 04/04/24 14:45 Docusate Sodium 100 mg BIDPRN PRN PO 04/04/24 14:45 Acetaminophen 650 mg Q6HP PRN PO 04/04/24 14:45 Acetaminophen/ Hydrocodone Bitart 1 tab Q4HP PRN PO 04/04/24 14:45 Ondansetron HCl 4 mg Q4HP PRN IV 04/04/24 14:45 Morphine Sulfate 2 mg Q4HPRN PRN IV 04/04/24 14:45 Methylprednisolone Sodium Succinate 40 mg BID IV 04/04/24 22:00 04/05/24 09:40 40 MG Ipratropium [place] 0.5 mg Q4HWA NEB 04/04/24 18:00 04/05/24 14:01 0.5 MG Ceftriaxone Sodium 50 ml @ 100 mls/hr DAILY@ IV 04/05/24 09:00 04/05/24 09:39 100 MLS/HR Azithromycin 500 mg DAILY PO 04/05/24 10:00 Diagnostic Test (Pha) 1 strip IQ4HR 04/04/24 16:00 04/05/24 04:00 1 STRIP Insulin Human Regular IQ4HR SC 04/04/24 16:00 Dextrose 50 ml UD PRN IV 04/04/24 15:00 Alprazolam 0.25 mg TID PO 04/04/24 22:00 04/05/24 12:51 0.25 MG Pantoprazole Sodium 40 mg DAILY PO 04/05/24 10:00 04/05/24 09:41 40 MG Permethrin 1 applic HS TOP 04/04/24 22:00 Hold Sucralfate 1 gm TID PO 04/04/24 22:00 04/05/24 12:51 1 GM Triamcinolone Acetonide 1 applic BID TOP 04/04/24 22:00 Hold Patient Own Medication 1 tab QAM PO 04/05/24 07:00 Loratadine 10 mg DAILY PO 04/05/24 10:00 04/05/24 09:41 10 MG Patient Own Medication 1 puff DAILY IN 04/05/24 10:00 Patient Own Medication 1 tab MONTHLY PO 04/04/24 15:15 Hold Atorvastatin Calcium 40 mg HS PO 04/04/24 22:00 04/04/24 23:05 40 MG Pregabalin 25 mg BID PO 04/04/24 23:15 04/05/24 09:40 25 MG Pregabalin 75 mg BID PO 04/04/24 23:15 04/05/24 09:40 75 MG Enoxaparin Sodium 50 mg Q12HR SC 04/05/24 10:00 04/05/24 09:40 50 MG Albuterol 2.5 mg Q6HWA NEB 04/05/24 18:00 Ipratropium [place] 0.5 mg Q6HWA NEB 04/05/24 18:00 Examination General Appearance: Alert, Oriented X3, Cooperative, mild distress HEENT: Atraumatic, PERRLA, EOMI, Mucous membr. moist/pink Respiratory: Normal air movement, mild expiration wheezing Cardiovascular: Regular rate, Normal S1, Normal S2, No murmurs Abdominal: Normal bowel sounds, Soft, No tenderness, No hepatospenomegaly Extremities: No clubbing, No cyanosis, No edema, Normal pulses, No tenderness/swelling Skin: No rashes, No significant lesion Neuro: Normal speech, Normal tone, Sensation intact Psych/Mental Status: Mental status NL, Mood NL laboratory and microbiology Laboratory Tests 04/05/24 06:22 Test 04/05/24 06:22 Range/Units Serum Glucose 123 H 74-106 mg/dL Microbiology Date/Time Source Procedure Growth Status 04/04/24 21:50 Nose MRSA Screen - Final Complete 04/04/24 13:02 Blood Blood Culture - Preliminary NO GROWTH AFTER 24 HOURS OF INCUBATION. Resulted Problem List/Assessment/Plan Problem List/Assessment/Plan #Acute hypercapnic respiratory failure #Acute on chronic diastolic heart failure EF 60% #Possible cor pulmonale #Pulmonary hypertension type 3 #Ruled out PE #Chronic respiratory failure on home O2 #COPD exacerbation #Acute bronchitis #Dyslipidemia #Ex-smoker #Anxiety #History of AFib #Possible euthyroid sick syndrome ECHO: Normal left ventricular size and dimension. Normal left ventricular systolic function estimated ejection fraction of 60%. There is a grade 1 diastolic dysfunction. Borderline dilated right ventricle. Mildly reduced left ventricular systolic function. Moderately elevated right ventricular systolic pressure at 50 mm of mercury. Borderline dilated right and left atria. Normal aortic valve structure and function. Normal mitral valve structure and function. There is mild tricuspid valve regurgitation. The pulmonary valve is grossly normal. No pericardial effusion angioCT scan chest: No pulmonary embolism. 2. Emphysematous changes in both lungs. Likely chronic scarring in both lungs. No definite acute pulmonary process. Consider follow-up chest CT in 3-6 months. Pending T4 Oxygen 2 L IV Ceftriaxone azithromycin Furosemide 20 mg once Methylprednisolone 40 mg b.i.d. Breathing treatments DC insulin hba1c 5.9 Enoxaparin 50 mg BID Atorvastatin Anxiety medication Case discussed with Dr Lema Time spent on care 23 min Full code Plan discussed with: Patient, Other (rn) My Orders My Orders Orders - ERVIN BENITEZ Procedure Category Date Status Time Drug Screen LAB 04/05/24 Logged 08:11 Urinalysis LAB 04/05/24 Logged 08:11 Abg W/ Co-Ox RT 04/05/24 Logged 08:12 Electrocardigram EKG 04/05/24 Logged 08:14 Echo 2d Mode Cardiac US 04/05/24 Resulted DOP 08:14 Enoxaparin Sodium PHA 04/05/24 In Process (Lovenox) 10:00 Thyroxine (T4) LAB 04/05/24 In Process 10:22 Albuterol Medneb PHA 04/05/24 In Process (Ventolin Medneb) 18:00 Ipratropium Medneb PHA 04/05/24 In Process (Atrovent Medneb) 18:[address] 04/05/24 Logged Contrast 14:54 Bilat Lower Dvt US 04/05/24 Taken 14:55 Rapid Influenza A&B LAB 04/05/24 Logged 15:14 Respiratory Culture THUY 04/05/24 Logged W/ Gs 15:14 Date of Service: Apr 05, 2024 Billing Provider: ROBERT LEMA MD Common Visit Codes: [id number] INP/OBS CARE(HIGH) Secondary Visit Codes: [id number] CARE PLAN 30 MINUTES ERVIN BENITEZ RESIDENT Apr 05, 2024 16:03 ROBERT LEMA MD Apr 08, 2024 20:18
[2024-04-05] MEDS ORDERED: IOHEXOL 350 MG/ML 100ML IJ ONE (16:56)
--- NOTE | 2024-04-05 17:42 | DVH ---
CTA Chest with intravenous contrast INDICATION: rule out PE COMPARISON: None TECHNIQUE: Multidetector spiral CTA of the chest was performed of the chest with intravenous contrast . PULMONARY ANGIOGRAPHY PROTOCOL was utilized using a bolus-tracking technique centered on the main p ulmonary artery. Axial, coronal and sagittal multiplanar and MIP reformats were performed. CONTRAST: Type of contrast: Omni 350 Contrast injected: 100 ml Radiation dose : Chest: CTDI volume is 22 mGy. Dose-length product is 293.7 mGy*cm The dose indicators for CT are the volume computed Tomography (CT) dose Index (CTDIvol) and the dose Length product (DLP), and are measured in units of mGy and mGy-cm, respectively. These indicators are not patient dose, but values generated from the CT scanner acquisition factors. The report includes radiation exposure data for exposures received during this examination. Findings: Pulmonary artery: No pulmonary embolism Lower neck: Normal thyroid. Lungs: Emphysematous changes in both lungs. Bilateral upper lobe septal thickening. Atelectasis and scarring in the lung bases. Nodular scarring in the right lower lung.. Heart/Vascular Structures: Normal heart size. No pericardial effusion. Lymph Nodes: No adenopathy Pleura: No pleural effusion or significant pneumothorax. Musculoskeletal: No acute osseous abnormality. Soft tissues: Normal. Upper abdomen: Limited portions of the upper abdomen are unremarkable. IMPRESSION: 1. No pulmonary embolism. 2. Emphysematous changes in both lungs. Likely chronic scarring in both lungs. No definite acute pulm onary process. Consider follow-up chest CT in 3-6 months. HS:Y
[2024-04-05] MEDS: ALBUTEROL SULF 2.5 MG/0.5ML(0.5%) NEB SOLN NEB SCH (18:31)
[2024-04-05 19:03] LABS: Urine Bacteria None Seen /hpf (None Seen)
[2024-04-05 19:12] LABS: Urine Blood Negative /uL (Negative); Urine Clarity Clear (Clear); Urine Color Light-Yellow (Yellow); Urine Protein, UAD Negative (Negative); Urine Specific Gravity 1.009 (1.001-1.035); Urine Urobilinogen Normal (Negative); Urine WBC 1 /hpf (0 - 5); Urine pH 6.5 (5.0-9.0)
[2024-04-05 19:22] LABS: Benzodiazephine Screen, Urine Pos (NEGATIVE)
[2024-04-05 19:29] LABS: Amphetamine Screen, Urine Neg (NEGATIVE); Barbiturate Scree,Urine Neg (NEGATIVE); Cannabinoid Screen, Urine Neg (NEGATIVE); Cocaine Screen, Urine Neg (NEGATIVE); Opiate Scree,Urine Neg (NEGATIVE); Phencyclidine Screen, Urine Neg (NEGATIVE)
[2024-04-06] VITALS (15 sets, daily range): BP systolic 93–120; BP diastolic 48–72; PULSE 71–121; RESP 16–21; TEMP 97.5–98.2; O2SAT 2–100
[2024-04-06 00:55] LABS: COVID19 ANTIGEN SOFIA FIA NEGATIVE (NEGATIVE); Rapid Influenza A Negative (Negative); Rapid Influenza B Negative (Negative)
--- NOTE | 2024-04-06 02:52 | DVH ---
Examination: BLDVT CLINICAL INDICATION: rule out dvt COMPARISON: None. TECHNIQUE: Using real-time ultrasonic imaging and color Doppler, the deep venous system of both lowe r extremities was studied from the level of the common femoral veins to the posterior tibial veins. FINDINGS: Ultrasound examination of bilateral common femoral veins, bilateral deep femoral veins, th e proximal, middle and distal segments of bilateral superficial femoral veins, bilateral popliteal ve ins, and bilateral posterior tibial veins reveal normal phasicity and compression and augmentation. No thrombus was visualized. IMPRESSION: There is no evidence of deep venous thrombosis in bilateral lower extremity venous syste ms. Electronically Signed 04/06/2024 02:48 Yesica [place]
[2024-04-06 06:38] LABS: Basophils # (auto) 0 10 ^3/uL (0-0.2); Basophils % (auto) 0.1 % (0.0-2.0); Eosinophils # (auto) 0 10 ^3/uL (0-0.8); Hemoglobin 11.1 g/dL (12.2-16.2); Lymphocytes # (auto) 0.9 10 ^3/uL (0.4-5.4); Monocytes # (auto) 0.2 10 ^3/uL (0-1.3)
[2024-04-06 06:41] LABS: Alanine Aminotransferase 13 U/L (7-40); Alkaline Phosphatase 62 U/L (46-116); BUN/Creatinine Ratio 22.8 (10.0-20.0); Blood Urea Nitrogen 13 mg/dL (9-23); Potassium 4.9 mmol/L (3.5-5.1); Sodium 141 mmol/L (136-145)
[2024-04-06 06:42] LABS: Albumin 3.9 g/dL (3.2-4.8); Aspartate Aminotransferase 14 U/L (13-40)
[2024-04-06 06:43] LABS: Total Protein 5.8 g/dL (5.7-8.2)
[2024-04-06] MEDS: IPRATROPIUM BROM 0.5 MG/2.5ML INH SOL NEB SCH (06:43)
[2024-04-06 06:46] LABS: Hematocrit 34.6 % (36.0-46.0); Lymphocytes % (auto) 6.9 % (10.0-50.0); Mean Corpuscular Hgb Conc. 32.1 g/dL (32.0-36.0); Mean Corpuscular Volume 87.1 fL (80.0-100.0); Monocytes % (auto) 1.7 % (0.0-12.0); Neutrophils % (auto) 91.3 % (37.0-80.0); Nucleated Red Blood Cells % 0.1 %; Platelet Count (auto) 366 10^3/uL (140-450); Red Blood Cells 3.97 10^6/uL (4.0-5.20); Red Cell Distribution Width 16.3 % (11.8-14.3); White Blood Cell 13.1 10^3/uL (4.4-10.8)
[2024-04-06 06:55] LABS: Chloride 98 mmol/L (98-107)
[2024-04-06 06:56] LABS: Anion Gap 2.99999 (5-15); Bilirubin, Total 0.2 mg/dL (0.2-1.0); Calcium 8.2 mg/dL (8.7-10.4); Carbon Dioxide > 40 mmol/L (20-31); Glucose 130 mg/dL (74-106)
--- NOTE | 2024-04-06 10:47 | DVHDSRES ---
Discharge Summary Date of Admission Resident Creating Document: ERVIN BENITEZ RESIDENT Apr 04, 2024 at 14:39 Date of Discharge: Apr 06, 2024 Admitting Diagnosis #Acute hypercapnic respiratory failure #Acute on chronic diastolic heart failure EF 60% #Possible cor pulmonale Labs/Diagnostic Data: Laboratory Results Test 04/06/24 05:05 04/06/24 00:00 04/05/24 19:02 04/05/24 12:47 White Blood Count 13.1 10^3/uL (4.4-10.8) Red Blood Count 3.97 10^6/uL (4.0-5.20) Hemoglobin 11.1 g/dL (12.2-16.2) Hematocrit 34.6 % (36.0-46.0) Mean Corpuscular Volume 87.1 fL (80.0-100.0) Mean Corpuscular Hemoglobin 28.0 pg (28.0-32.0) Mean Corpuscular Hemoglobin Concent 32.1 g/dL (32.0-36.0) Red Cell Distribution Width 16.3 % (11.8-14.3) Platelet Count 366 10^3/uL (140-450) Mean Platelet Volume 7.5 fL (6.9-10.8) Neutrophils (%) (Auto) 91.3 % (37.0-80.0) Lymphocytes (%) (Auto) 6.9 % (10.0-50.0) Monocytes (%) (Auto) 1.7 % (0.0-12.0) Eosinophils (%) (Auto) 0.0 % (0.0-7.0) Basophils (%) (Auto) 0.1 % (0.0-2.0) Neutrophils # (Auto) 12.0 10 ^3/uL (1.6-8.6) Lymphocytes # (Auto) 0.9 10 ^3/uL (0.4-5.4) Monocytes # (Auto) 0.2 10 ^3/uL (0-1.3) Eosinophils # (Auto) 0 10 ^3/uL (0-0.8) Basophils # (Auto) 0 10 ^3/uL (0-0.2) Nucleated Red Blood Cells 0.1 % Sodium Level 141 mmol/L (136-145) Potassium Level 4.9 mmol/L (3.5-5.1) Chloride Level 98 mmol/L (98-107) Carbon Dioxide Level > 40 mmol/L (20-31) Anion Gap 2.84876 (5-15) Blood Urea Nitrogen 13 mg/dL (9-23) Creatinine 0.57 mg/dL (0.550-1.02) Glomerular Filtration Rate Calc 98 mL/min (>90) BUN/Creatinine Ratio 22.8 (10.0-20.0) Serum Glucose 130 mg/dL (74-106) Calcium Level 8.2 mg/dL (8.7-10.4) Total Bilirubin 0.2 mg/dL (0.2-1.0) Aspartate Amino Transferase (AST) 14 U/L (13-40) Alanine Aminotransferase (ALT) 13 U/L (7-40) Alkaline Phosphatase 62 U/L (46-116) Total Protein 5.8 g/dL (5.7-8.2) Albumin 3.9 g/dL (3.2-4.8) Influenza Type A Antigen Negative (Negative) Influenza Type B Antigen Negative (Negative) SARS-CoV-2 Antigen (Rapid) Negative (NEGATIVE) Urine Color Light-yellow (Yellow) Urine Clarity Clear (Clear) Urine pH 6.5 (5.0-9.0) Urine Specific [place] 1.009 (1.001-1.035) Urine Protein Negative (Negative) Urine Ketones Negative (Negative) Urine Blood Negative /uL (Negative) Urine Nitrite Negative (Negative) Urine Bilirubin Negative (Negative) Urine Urobilinogen Normal mg/dL (Negative) Urine Leukocyte Esterase Negative /uL (Negative) Urine RBC <1 /hpf (0 - 4) Urine WBC 1 /hpf (0 - 5) Urine Squamous Epithelial Cells Few /hpf (<5) Urine Bacteria None seen /hpf (None Seen) Urine Glucose Normal mg/dL (Normal) Urine Opiates Screen Neg (NEGATIVE) Urine Fentanyl Screen Neg (NEGATIVE) Urine Barbiturates Screen Neg (NEGATIVE) Urine Phencyclidine Screen Neg (NEGATIVE) Urine Amphetamines Screen Neg (NEGATIVE) Urine Benzodiazepines Screen Pos (NEGATIVE) Urine Cocaine Screen Neg (NEGATIVE) Urine Cannabinoids Screen Neg (NEGATIVE) Blood Gas Specimen Type Arterial Blood Gas Sample Site Left radial Blood Gas Patient Temperature 37.0 Arterial Blood Date Drawn [id number] Arterial Blood pH 7.348 (7.350-7.450) Arterial Blood Partial Pressure CO2 62.9 mmHg (32.0-45.0) Arterial Blood Partial Pressure O2 72.8 mmHg (83.0-108.0) Arterial Blood HCO3 33.8 mmol/L (21.0-28.0) Arterial Blood Oxygen Saturation 94.0 % (94.0-98.0) Arterial Blood Base Excess 6.4 mmol/L (-2.0-3.0) Arterial Blood Oxyhemoglobin 93.4 % (94.0-98.0) Arterial Blood Carboxyhemoglobin 0.5 % (0.5-1.5) Arterial Blood Methemoglobin 0.1 % (0.0-1.5) Javier Test Yes Blood Gas Total Hemoglobin 12.00 g/dL (12.0-16.0) Blood Gas Modality Nasal cannula FiO2 % 28.0 Blood Gas Critical Value Read Back Yes Blood Gas Notified Whom emilia Alfaro md Blood Gas Notified Time [id number] Blood Gas Notified By Farm Reporter atul prajapati Test 04/05/24 11:26 04/05/24 06:22 04/04/24 17:39 04/04/24 16:34 Prothrombin Time 10.3 sec (9.3-11.8) Prothrombin Time INR 0.97 (0.9-1.15) Activated Partial Thromboplast Time 25.1 SEC (24.5-34.5) D-Dimer, Quantitative 0.93 mg/L FEU (0.0-0.49) Troponin I High Sensitivity 19 ng/L (</=34) Thyroid Stimulating Hormone (TSH) 0.18 uIU/mL (0.55-4.78) Free Triiodothyronine (T3) pg/mL 2.61 pg/mL (2.3-4.2) POC Glucose 158 mg/dl (70-106) Hemoglobin A1c 5.9 % A1C (<5.7) Test 04/04/24 10:46 Lactic Acid Level 1.5 mmol/L (0.4-2.0) B-Type Natriuretic Peptide 201.64 pg/mL (0-100) Other Laboratory Tests 04/06/24 05:05 Brief Hx & Hospital Course: A 69-year-old female with a history of atrial fibrillation, COPD, diabetes, hyperlipidemia, hypertension, asthma, chronic respiratory failure on home oxygen, presented with worsening shortness of breath. She was recently discharged from [facility] due to SOB. Vital signs upon admission were notable for mild tachypnea and hypoxia, with the patient on 2L nasal cannula oxygen. Imaging ruled out pulmonary embolism but revealed chronic scarring in both lungs. An echocardiogram showed moderate diastolic dysfunction and a mildly reduced left and right ventricular ejection fraction of 60%. Her diagnosis included acute hypercapnic respiratory failure, COPD exacerbation, and acute bronchitis. The patient was managed with oxygen therapy, ceftriaxone, azithromycin, furosemide, and methylprednisolone. Insulin was adjusted to optimize glycemic control. Her symptoms improved with treatment, and she was hemodynamically stable at discharge. Follow-up recommendations include close outpatient monitoring of her cardiac and pulmonary conditions. She was discharged on her home oxygen, maintenance medications, and advised to avoid respiratory irritants. General Appearance: Alert, Oriented X3, Cooperative, mild distress HEENT: Atraumatic, PERRLA, EOMI, Mucous membr. moist/pink Respiratory: Normal air movement, mild expiration wheezing Cardiovascular: Regular rate, Normal S1, Normal S2, No murmurs Abdominal: Normal bowel sounds, Soft, No tenderness, No hepatospenomegaly Extremities: No clubbing, No cyanosis, No edema, Normal pulses, No tenderness/swelling Skin: No rashes, No significant lesion Neuro: Normal speech, Normal tone, Sensation intact Psych/Mental Status: Mental status NL, Mood NL Case discussed with Dr Lema Time spent on care 23 min Operations or Procedures CONTRAST: Type of contrast: Omni 350 Contrast injected: 100 ml Radiation dose : Chest: CTDI volume is 22 mGy. Dose-length product is 293.7 mGy*cm The dose indicators for CT are the volume computed Tomography (CT) dose Index (CTDIvol) and the dose Length product (DLP), and are measured in units of mGy and mGy-cm, respectively. These indicators are not patient dose, but values generated from the CT scanner acquisition factors. The report includes radiation exposure data for exposures received during this examination. Findings: Pulmonary artery: No pulmonary embolism Lower neck: Normal thyroid. Lungs: Emphysematous changes in both lungs. Bilateral upper lobe septal thickening. Atelectasis and scarring in the lung bases. Nodular scarring in the right lower lung.. Heart/Vascular Structures: Normal heart size. No pericardial effusion. Lymph Nodes: No adenopathy Pleura: No pleural effusion or significant pneumothorax. Musculoskeletal: No acute osseous abnormality. Soft tissues: Normal. Upper abdomen: Limited portions of the upper abdomen are unremarkable. IMPRESSION: 1. No pulmonary embolism. 2. Emphysematous changes in both lungs. Likely chronic scarring in both lungs. No definite acute pulmonary process. Consider follow-up chest CT in 3-6 months. EXAM: LIMITED Two-dimensional and M-mode echocardiogram with Doppler and color Doppler. Blood Pressure: 113/59 mmHg INDICATION acute chf RISK FACTORS Height: 5'2, Weight: 118 DIMENSIONS LVDd (3.8-5.7cm) LA (2D) 2.7 (1.9-4.0cm) Aortic Root 2.9 (2.0- 3.7cm) LVDs (2.5-4.0cm) LA (MM) (1.9-4.0cm) Aortic Cusp Exc 1.6 (1.5- 2.0cm) EF (%) 60.0 (55-70%) Rt. Atrium (1.9-4.0cm) Asc. Aorta cm Mitral Valve Mitral Mitral Stenosis E wave 0.51m/s MV Mean GR. mmHg A wave 0.81m/s MV Peak GR. 94mmHg E/A ratio 0.6 2D MVA cm2 DECEL Time 150ms PRESS 1/2 Time ms Aortic Valve Aortic Valve Aortic Stenosis V1 0.90m/s AO Mean GR. 3mmHg V2 1.19m/s AO Peak GR. 6mmHg LVOT Diameter 1.7 (1.8-2.4cm) Doppler ALEKSANDR 1.72cm2 Pulmonic Valve V2 0.76m/s Tricuspid Valve TR Velocity 3.02m/s RVSP 49mmHg Other Information Technically limited study due to pt coughing and moving Conclusion Normal left ventricular size and dimension. Normal left ventricular systolic function estimated ejection fraction of 60%. There is a grade 1 diastolic dysfunction. Borderline dilated right ventricle. Mildly reduced left ventricular systolic function. Moderately elevated right ventricular systolic pressure at 50 mm of mercury. Borderline dilated right and left atria. Normal aortic valve structure and function. Normal mitral valve structure and function. There is mild tricuspid valve regurgitation. The pulmonary valve is grossly normal. No pericardial effusion. Condition at Discharge: Stable Final Diagnosis/Problems List #Acute hypercapnic respiratory failure #Acute on chronic diastolic heart failure EF 60% #Possible cor pulmonale #Pulmonary hypertension type 3 #Ruled out PE #Chronic respiratory failure on home O2 #COPD exacerbation #Acute bronchitis #Dyslipidemia #Ex-smoker #Anxiety #History of AFib #Possible euthyroid sick syndrome Discharge Disposition: Home Discharge Instruct/Medications Diet: Consistent carbohydrate, Cardiac 2g Na,low cholest Activity: Light activity Follow Up/Referral: dc clinic Medications: see prescription Discharge Statement: "Patient was advised to return to the ER or call 911 if any headaches, dizziness, shortness of breath, chest pain, abdominal pain, bleeding, fevers, or worsening of medical condition. Patient was counseled about treatment plan, medications, possible side effects, patientverbalized understanding. All questions were answered to the best of my ability. This discharge took greater then 30 minutes in planning, reviewing documentation, counseling the patient, and discussing with other team members." ASSESSMENT ASSESSMENT Assessment COPD exacerbation Date of Service: Apr 06, 2024 Billing Provider: ROBERT LEMA MD Common Visit Codes: 40861-SPF/OBS DISCH DAY >30min ERVIN BENITEZ RESIDENT Apr 06, 2024 10:47 ROBERT LEMA MD Apr 08, 2024 20:17
[2024-04-06] MEDS ORDERED: ACET-1882 PO (10:49)
[2024-04-06] MEDS ORDERED: PRED20TA2 PO (10:49)
[2024-04-06] MEDS ORDERED: DOXY1CAP58 PO (10:49)
[2024-04-06] MEDS: FUROSEMIDE 20 MG/2 ML VIAL IV SCH (13:10)
[2024-04-07] VITALS (8 sets, daily range): BP systolic 96–132; BP diastolic 54–61; PULSE 83–97; RESP 15–20; TEMP 97.4–98.3; O2SAT 2–96
--- NOTE | 2024-04-07 12:42 | DVHPNRES ---
Progress Note Date Seen: Apr 07, 2024 Resident Creating Document: ERVIN BENITEZ RESIDENT Has the PT tested + for MRSA If YES, has PT been informed?: No Medical Necessity Reason Pt with a Central, PICC or Fol: No Subjective Review of Systems A 69-year-old female with a history of atrial fibrillation, COPD, diabetes, hyperlipidemia, hypertension, asthma, chronic respiratory failure on home oxygen, presented with worsening shortness of breath. She was recently discharged from [facility] due to SOB. Vital signs upon admission were notable for mild tachypnea and hypoxia, with the patient on 2L nasal cannula oxygen. Imaging ruled out pulmonary embolism but revealed chronic scarring in both lungs. An echocardiogram showed moderate diastolic dysfunction and a mildly reduced left and right ventricular ejection fraction of 60%. Her diagnosis included acute hypercapnic respiratory failure, COPD exacerbation, and acute bronchitis. The patient was managed with oxygen therapy, ceftriaxone, azithromycin, furosemide, and methylprednisolone. Insulin was adjusted to optimize glycemic control. Her symptoms improved with treatment, and she was hemodynamically stable at discharge. Follow-up recommendations include close outpatient monitoring of her cardiac and pulmonary conditions. She was discharged on her home oxygen, maintenance medications, and advised to avoid respiratory irritants. Objective vital signs Vital Sign Date Time Temp Pulse Resp B/P (MAP) Pulse Ox O2 Delivery O2 Flow Rate FiO2 04/07/24 12:26 95 20 95 04/07/24 12:20 Nasal Cannula 2.0 04/07/24 12:20 28 04/07/24 09:50 104/59 04/07/24 08:31 98.3 98.3 Total Intake and Output 04/06/24 04/06/24 04/07/24 15:00 23:00 07:00 Intake Total 890 ml 800 ml 500 ml Output Total 800 ml Balance 890 ml 0 ml 500 ml medications Current Medications Medications Dose Ordered Sig/Shanique Route Start Time Stop Time Status Last Admin Dose Admin Lorazepam 0.5 mg Q6HP PRN PO 04/04/24 14:45 Docusate Sodium 100 mg BIDPRN PRN PO 04/04/24 14:45 Acetaminophen 650 mg Q6HP PRN PO 04/04/24 14:45 Acetaminophen/ Hydrocodone Bitart 1 tab Q4HP PRN PO 04/04/24 14:45 Ondansetron HCl 4 mg Q4HP PRN IV 04/04/24 14:45 Morphine Sulfate 2 mg Q4HPRN PRN IV 04/04/24 14:45 Methylprednisolone Sodium Succinate 40 mg BID IV 04/04/24 22:00 04/07/24 09:53 40 MG Ceftriaxone Sodium 50 ml @ 100 mls/hr DAILY@09 IV 04/05/24 09:00 04/07/24 09:54 100 MLS/HR Azithromycin 500 mg DAILY PO 04/05/24 10:00 04/06/24 13:10 500 MG Dextrose 50 ml UD PRN IV 04/04/24 15:00 Cancel Alprazolam 0.25 mg TID PO 04/04/24 22:00 04/07/24 06:01 0.25 MG Pantoprazole Sodium 40 mg DAILY PO 04/05/24 10:00 04/07/24 09:51 40 MG Permethrin 1 applic HS TOP 04/04/24 22:00 Hold Sucralfate 1 gm TID PO 04/04/24 22:00 04/07/24 06:01 1 GM Triamcinolone Acetonide 1 applic BID TOP 04/04/24 22:00 Hold Patient Own Medication 1 tab QAM PO 04/05/24 07:00 Loratadine 10 mg DAILY PO 04/05/24 10:00 04/07/24 09:51 10 MG Patient Own Medication 1 puff DAILY IN 04/05/24 10:00 Patient Own Medication 1 tab MONTHLY PO 04/04/24 15:15 Hold Atorvastatin Calcium 40 mg HS PO 04/04/24 22:00 04/06/24 21:54 40 MG Pregabalin 25 mg BID PO 04/04/24 23:15 04/07/24 09:51 25 MG Pregabalin 75 mg BID PO 04/04/24 23:15 04/07/24 09:51 75 MG Enoxaparin Sodium 50 mg Q12HR SC 04/05/24 10:00 04/07/24 09:52 50 MG Albuterol 2.5 mg Q6HWA NEB 04/05/24 18:00 04/07/24 12:19 2.5 MG Ipratropium [place] 0.5 mg Q6HWA NEB 04/05/24 18:00 04/07/24 12:19 0.5 MG Furosemide 20 mg DAILY IV 04/06/24 10:00 04/07/24 09:50 20 MG Examination General Appearance: Alert, Oriented X3, Cooperative, mild distress HEENT: Atraumatic, PERRLA, EOMI, Mucous membr. moist/pink Respiratory: Normal air movement, mild expiration wheezing Cardiovascular: Regular rate, Normal S1, Normal S2, No murmurs Abdominal: Normal bowel sounds, Soft, No tenderness, No hepatospenomegaly Extremities: No clubbing, No cyanosis, No edema, Normal pulses, No tenderness/swelling Skin: No rashes, No significant lesion Neuro: Normal speech, Normal tone, Sensation intact Psych/Mental Status: Mental status NL, Mood NL laboratory and microbiology Laboratory Tests 04/06/24 05:05 Test 04/06/24 05:05 Range/Units Serum Glucose 130 H 74-106 mg/dL Microbiology Date/Time Source Procedure Growth Status 04/05/24 19:00 Sputum Gram Stain - Final Resulted 04/05/24 19:00 Sputum Respiratory Culture - Preliminary Resulted 04/04/24 21:50 Nose MRSA Screen - Final Complete 04/04/24 13:02 Blood Blood Culture - Preliminary NO GROWTH AFTER 48 HOURS OF INCUBATION. Resulted Problem List/Assessment/Plan Problem List/Assessment/Plan #Acute hypercapnic respiratory failure #Acute on chronic diastolic heart failure EF 60% #Possible cor pulmonale #Pulmonary hypertension type 3 #Ruled out PE #Chronic respiratory failure on home O2 #COPD exacerbation #Acute bronchitis #Dyslipidemia #Ex-smoker #Anxiety #History of AFib #Possible euthyroid sick syndrome ECHO: Normal left ventricular size and dimension. Normal left ventricular systolic function estimated ejection fraction of 60%. There is a grade 1 diastolic dysfunction. Borderline dilated right ventricle. Mildly reduced left ventricular systolic function. Moderately elevated right ventricular systolic pressure at 50 mm of mercury. Borderline dilated right and left atria. Normal aortic valve structure and function. Normal mitral valve structure and function. There is mild tricuspid valve regurgitation. The pulmonary valve is grossly normal. No pericardial effusion angioCT scan chest: No pulmonary embolism. 2. Emphysematous changes in both lungs. Likely chronic scarring in both lungs. No definite acute pulmonary process. Consider follow-up chest CT in 3-6 months. T4 normal Oxygen 2 L IV Ceftriaxone azithromycin Furosemide 20 mg once Methylprednisolone 40 mg b.i.d. Breathing treatments DC insulin hba1c 5.9 Enoxaparin 50 mg BID Atorvastatin Anxiety medication Pt is stable to go home, patient has O2 at home and portable Case discussed with Dr Lema Time spent on care 23 min Full code Plan discussed with: Patient, Other (rn) Date of Service: Apr 07, 2024 Billing Provider: ROBERT LEMA MD Common Visit Codes: [id number] INP/OBS CARE(HIGH) ERVIN BENITEZ RESIDENT Apr 07, 2024 12:42 ROBERT LEMA MD Apr 08, 2024 20:18
== END 2024-04-07 13:26 | disposition home or self-care (01) | DRG 291 ==
LOC: ER 09:43 → OVERFLOW 14:39 → CENTRAL 21:21
PROVIDERS: ADMIT Internal Medicine Geriatric Medicine; ATTEND Emergency Medicine
DX: I11.0 Hypertensive heart disease with heart failure (principal); I50.33 Acute on chronic diastolic (congestive) heart failure; J96.21 Acute and chronic respiratory failure with hypoxia; J96.22 Acute and chronic respiratory failure with hypercapnia; J44.1 Chronic obstructive pulmonary disease with (acute) exacerbation; J20.9 Acute bronchitis, unspecified; Z20.822 Contact with and (suspected) exposure to COVID-19; I27.81 Cor pulmonale (chronic); I27.23 Pulmonary hypertension due to lung diseases and hypoxia; I48.91 Unspecified atrial fibrillation; E78.5 Hyperlipidemia, unspecified; F41.9 Anxiety disorder, unspecified; E07.81 Sick-euthyroid syndrome; E11.9 Type 2 diabetes mellitus without complications; Z87.891 Personal history of nicotine dependence; Z98.891 History of uterine scar from previous surgery; Z99.81 Dependence on supplemental oxygen
CPT/HCPCS: 36415; 36600; 71045; 71275; 80048; 80053; 80307; 81001; 82805; 82962; 83036; 83605; 83880; 84436; 84443; 84481; 84484; 85025; 85379; 85610; 85730; 87040; 87070; 87081; 87205; 87426; 87804; 93005; 93306; 93970; 94640; 99291; G0378